=== PATIENT | male | born 1960 | race Caucasian/White ===

== ENCOUNTER 2018-09-22 09:46 | Inpatient (IN) | payer OTHER, SELFPAY ==
[2018-09-22] VITALS (16 sets, daily range): BP systolic 110–154; BP diastolic 81–103; PULSE 87–140; RESP 12–21; TEMP 36.5–37.1; O2SAT 97–100; BMI 30.8; BMI 30.4
--- NOTE | 2018-09-22 10:14 | EKG12_ITS ---
Test Reason : TACHYCARDIA Blood Pressure : / mmHG Vent. Rate : 132 BPM Atrial Rate : 147 BPM P-R Int : 000 ms QRS Dur : 090 ms QT Int : 324 ms P-R-T Axes : 000 016 072 degrees QTc Int : 480 ms Atrial fibrillation with rapid ventricular response with premature ventricular or aberrantly conducte d complexes Nonspecific T wave abnormality Abnormal ECG Confirmed by MATTHEW MCKINNON, ARACELI ([id number]), image editor AMAYA NAJERA ([id number]) on 09/24/2018 1:38:09 PM Referred By: IMELDA Confirmed By:ARACELI CASTRO MD
--- NOTE | 2018-09-22 10:18 | ED.VISSUMM ---
- ER Visit Summary Date of Service: 09/22/18 Chief Complaint: An irregular heartbeat History of Present Illness: The patient is a 58 M history of hypertension, high cholesterol PE and hypothyroidism. His had a cardiac history. Has never had a cardiac catheterization. Recently was treated for URI with Levaquin. On follow-up visit noticing irregular heartbeat [facility] and sent him over for further evaluation. He denies any chest pain. Physical Examination: Middle-aged male. Initial blood pressure 134 103. Heart rate 140. A. fib RVR on the monitor. He is in no distress. HEENT exam unremarkable. Neck nontender no JVD. Lungs clear to auscultation bilaterally. Heart irregularly irregular heart rate about 140. Consistent with A. fib RVR. No appreciable murmur. Abdomen soft and nontender. He is moving all 4 extremities. They are neurovascularly intact. Calves are nontender without edema or cords. Neurologically he is awake and alert with no focal motor deficits. Test Results: Chest x-ray no acute abnormality. Borderline cardiomegaly read by myself. EKG is A. fib RVR with rate of 132. No acute signs of an [place]. CBC normal hemoglobin 15. Chemistries normal except for creatinine 1.35. INR 1.2. TSH 0.23 and troponin 0 0.024. Emergency Department Course and Treatment: Patient will undergo cardiac evaluation. He will be treated with IV Cardizem for his A. fib RVR. He will need to be admitted. On repeat exam patient remains in A. fib with heart rates between 100 126. He will be started on a Cardizem drip. Treatment Plan: Hospitalist on page for admission to PCU Disposition: Admission Impression: New onset atrial fibrillation with RVR History of hypertension History of hypothyroidism This note was generated with Eventable dictation software. It may contain incorrect words, spelling, and punctuation that were not noted in review of the chart prior to signing
--- NOTE | 2018-09-22 10:21 | ED.DCSUM_ITS ---
- ER Visit Summary Date of Service: 09/22/18 Chief Complaint: An irregular heartbeat History of Present Illness: The patient is a 58 M history of hypertension, high cholesterol PE and hypothyroidism. His had a cardiac history. Has never had a cardiac catheterization. Recently was treated for URI with Levaquin. On follow-up visit noticing irregular heartbeat [facility] and sent him over for further evaluation. He denies any chest pain. Physical Examination: Middle-aged male. Initial blood pressure 134 103. Heart rate 140. A. fib RVR on the monitor. He is in no distress. HEENT exam unremarkable. Neck nontender no JVD. Lungs clear to auscultation bilaterally. Heart irregularly irregular heart rate about 140. Consistent with A. fib RVR. No appreciable murmur. Abdomen soft and nontender. He is moving all 4 extremities. They are neurovascularly intact. Calves are nontender without edema or cords. Neurologically he is awake and alert with no focal motor deficits. Test Results: Chest x-ray no acute abnormality. Borderline cardiomegaly read by myself. EKG is A. fib RVR with rate of 132. No acute signs of an [place]. CBC normal hemoglobin 15. Chemistries normal except for creatinine 1.35. INR 1.2. TSH 0.23 and troponin 0 0.024. Emergency Department Course and Treatment: Patient will undergo cardiac evaluation. He will be treated with IV Cardizem for his A. fib RVR. He will need to be admitted. On repeat exam patient remains in A. fib with heart rates between 100 126. He will be started on a Cardizem drip. Treatment Plan: Hospitalist on page for admission to PCU Disposition: Admission Impression: New onset atrial fibrillation with RVR History of hypertension History of hypothyroidism This note was generated with Mode[employer] dictation software. It may contain incorrect words, spelling, and punctuation that were not noted in review of the chart prior to signing
[2018-09-22 10:28] LABS: Absolute Lymphocyte Count 2.07 X10^3/ul (0.83-4.51); Absolute Neutrophil Count 4.9 X10^3/uL (2.0-7.7); Basophil# 0.04 X10^3/uL; Basophil% 0.5 % (0-1); Eosinophil# 0.41 X10^3/uL; Eosinophils% 4.9 % (0-5); Hematocrit 46.4 % (40-54); Hemoglobin 15.5 g/dl (13.0-16.5); Lymphocyte # 2.07 X10^3/ul (4.0); Lymphocyte % 24.7 % (19-41); Mean Corp Hgb Conc 33.4 g/gl (32-36); Mean Corpuscular Hgb 30.6 pg (27.0-32.0); Mean Corpuscular Volume 91.7 fL (80-94); Mean Platelet Vol. 10.2 fl (6.2-12.0); Monocyte# 0.94 X10^3/uL; Monocyte% 11.2 % (0-10); Neutrophil % 58.6 % (47-70); POSITIVE COUNT NO; POSITIVE DIFFERENTIAL NO; POSITIVE MORPHOLOGY NO; Platelet Count 205 K/mm3 (150-450); RBC Distribution Width CV 14.1 % (11.6-14.6); RBC Distribution Width SD 47.1 fl (35.1-43.9); Red Blood Count 5.06 M/mm3 (4.6-6.2); White Blood Count 8.4 K/mm3 (4.4-11.0)
[2018-09-22] MEDS: dilTIAZem 25 MG/5 ML Vial IV BOLUS (10:29)
[2018-09-22] MEDS: Aspirin 81 MG TAB.CHEW 324 MG PO (10:29)
[2018-09-22 10:31] LABS: International Normalized Ratio 1.2; Prothrombin Time (Protime)PT. 14.8 SECONDS (11.7-14.9)
--- NOTE | 2018-09-22 10:43 | RAD_ITS ---
STUDY: X-RAY CHEST REASON FOR EXAM: Male, 58 years old. Chest pain. Arrhythmia. TECHNIQUE: Single AP portable view of the chest. COMPARISON: None. FINDINGS: EKG electrodes are seen. Mild increased markings in the mid and lower lungs. This may represent mild CHF. Follow-up is recommended. There is no demonstrated pleural abnormality. There is mild cardiac enlargement. Normal mediastinum and sina. Normal visualized pulmonary arteries. Normal visualized aortic arch and descending thoracic aorta. There are diffuse degenerative changes of the visualized thoracic spine. Normal visualized ribs, clavicles, and shoulders. There is no demonstrated abnormality of the visualized soft tissue structures of the upper abdomen. RAD/Chest 1 View (Portable) IMPRESSION: Myocardial megaly. Findings suggestive of a mild degree of CHF. Electronically Signed: Ha Ortega, at 11:12 EDT , Service support ,
[2018-09-22 10:45] LABS: Anion Gap 4 (5-15); BUN 14 mg/dL (7-18); BUN/Creat Ratio 10.4 RATIO (10-20); Calcium,Total 8.6 mg/dL (8.5-10.1); Chloride 107 mmol/L (98-107); Creatinine, Serum 1.35 mg/dL (0.70-1.30); EST Glomerular Filtration Rate 57 mL/min (>60); Est Glom Filt Rate - Afr Amer 69 mL/min (>60); Estimated Creatinine Clearance 67.65 ml/min; Glucose 104 mg/dL (74-106); Potassium 4.4 mmol/L (3.5-5.1); Sodium Level 137 mmol/L (136-145); Thyroid Stim Hormone (TSH) 0.23 uIU/mL (0.358-3.74)
[2018-09-22 12:00] LABS: T4 Total, Thyroxin 11.5 ug/dL (4.5-12.1)
--- NOTE | 2018-09-22 14:06 | ECHOCS_ITS ---
Reason For Study: Afib/Flutter Procedure This was a 2D Doppler, Color Flow transthoracic echocardiogram. Contrast injection was performed. Exam performed portable in patient room. Left Ventricle Mildly dilated left ventricle. Mild concentric left ventricular hypertrophy. Thrombus measuring 1.4 by 1.4 cm in apex. The estimated ejection fraction is 20 %. Severe global left ventricular systolic dysfunction. There is severe global hypokinesis of the left ventricle. Right Ventricle Normal right ventricle. Normal systolic function. Atria The left atrium is severely enlarged. The right atrium is mildly enlarged. Mitral Valve Normal mitral valve. Mild (1+) eccentric mitral valve insufficiency. Tricuspid Valve Normal tricuspid valve. Aortic Valve The aortic valve is not well visualized. Pulmonic Valve Normal pulmonic valve. Great Vessels Normal aortic root. The pulmonary artery is normal size. Normal inferior vena cava. Pericardium/Pleural No pericardial effusion. Medication Diluted definity 4ml given slow IV push to enhance endocardial definition. MMode/2D Measurements & Calculations LVIDd: 5.8 cm IVSd: 1.2 cm Ao root diam: 3.8 cm LVIDs: 4.7 cm LVPWd: 1.3 cm LA dimension: 5.1 cm FS: 19.4 % LAV(MOD-bp): 116.9 ml LA A4 area: 34.5 cm2 RA A4 area: 26.9 cm2 LAV(MOD-bp) Indexed: 50.1 ml/m2 LAV(MOD-sp2): 99.5 ml LAV(MOD-sp4): 121.2 ml Doppler Measurements & Calculations MV E max sloan: 80.9 cm/sec Ao V2 max: 121.8 cm/sec LV V1 max: 95.6 cm/sec Ao max P.0 mmHg LV V1 max P.7 mmHg MR max sloan: 369.6 cm/sec PA V2 max: 66.4 cm/sec MR max P.6 mmHg MR mean sloan: 303.3 cm/sec MR mean P.7 mmHg MR VTI: 114.9 cm Interpretation Summary Mildly dilated left ventricle. Mild concentric left ventricular hypertrophy. The estimated ejection fraction is 20 %. Severe global left ventricular systolic dysfunction. Thrombus measuring 1.4 by 1.4 cm in apex Ordering Physician: Aaron Quintanilla Performed By: Jhoan Harris RCS
[2018-09-22] MEDS: Rivaroxaban 20 MG Tablet PO (15:21)
--- NOTE | 2018-09-22 16:57 | PCM.HP.STD ---
Problem List (1) Hypothyroidism Status: Chronic (2) A-fib Status: Acute (3) Left ventricular thrombus Status: Acute (4) History of venous thromboembolism Status: Chronic (5) HTN (hypertension) Status: Chronic (6) HLD (hyperlipidemia) Status: Chronic History of Present Illness Date of Admission: 09/22/18 Chief Complaint: Shortness of breath The patient is a 58 year old M with PMH as below who presents after going to his PCPs office for a follow-up of his pneumonia and no resolution of the of his upper respiratory infection/? recurrent pneumonia. In his PCPs office he was found to be tachycardic and they performed an EKG which showed he was in A. fib. They recommended that he present to the ER. In the ER he was found to be in A. fib with a normal chest x-ray that showed mild cardiomegaly as well as bilateral small pleural effusions. He was admitted for further evaluation of his A. fib. In the ER troponin was 0.024, and he was started on Cardizem. He states that he first started feeling short of breath with an upper respiratory infection about 6 months ago and it has not gotten any better. He has undergone multiple treatments with antibiotics as well as nasal sprays for relief, which did not work. He states that he has shortness of breath when he lays down for sleep and because he has difficulty sleeping he has been feeling fatigued. He denies any chest pain, lightheadedness, dizziness, or palpitations. And he does not recall any recent episodes of chest pain or shortness of breath 6 months ago. Past Medical History Past Medical History (Chronic Problems): Chronic Problems Hypothyroidism (Chronic) History of venous thromboembolism (Chronic) HTN (hypertension) (Chronic) HLD (hyperlipidemia) (Chronic) Allergies Penicillins Allergy (Verified 09/22/18 09:50) Unknown Home Medications: Ambulatory Orders Medication Instructions Recorded Aspirin 81 mg PO DAILY 09/22/18 Levothyroxine [Synthroid] 150 mcg PO DAILY 09/22/18 Lisinopril [Prinivil] 10 mg PO DAILY 09/22/18 Simvastatin [Zocor] 40 mg PO QHS 09/22/18 Surgical History: no surgical history Smoking Status: Former smoker Tobacco Use: Cigarettes Alcohol: None, Occasional Drugs: None - *Family History Paternal History Items: Heart Disease Maternal History Items: - - Tuberculosis Review of Systems Constitutional: Denies: Chills, Fever, Weight Change HEENT: Denies: Head Aches, Sinus Congestion, Sinus Drainage Cardiovascular: Reports: Orthopnea. Denies: Chest Pain, Palpitations Respiratory: Reports: Shortness of Breath. Denies: Cough, Shortness of breath at rest, Sputum production Gastrointestinal: Denies: Abdominal Pain, Nausea, Vomiting Genitourinary: Denies: Dysuria Musculoskeletal: Denies: Joint Pain, Joint Tenderness Skin: Denies: Rash, Wounds Neurological: Denies: Numbness, Tingling, Focal weakness Psychiatric: Denies: Anxiety, Depression Hematologic/ Lymphatic: Denies: Easy Bruising, Easy Bleeding VTE Information - Inpt Only VTE Present on Admission: No Patient Problems: Active and Suspected Problems A-fib (Acute) Left ventricular thrombus (Acute) - Physical Exam General: Alert, Oriented x3, Cooperative, No apparent distress HEENT: Atraumatic, PERRLA, EOMI, Normocephalic Oral: Moist Mucosa Neck: Supple, No JVD Lungs: Clear to auscultation, Normal air movement, No rhonchi, No wheeze, No rales, Diminished Cardiovascular: No murmurs, Tachycardic, - - Irregular rhythm Abdomen: Soft, Non Tender, Non-Distended, No Hepato-splenomegaly Extremities: No edema, Capillary Refill Less than 3 Seconds Skin: No rashes, No breakdown Neurological: Neuro grossly intact, Sensory exam intact to light touch and pain Psych/Mental Status: Normal Affect, Appropriate Vital Signs Temp Pulse Resp BP Pulse Ox 98.5 F 110 H 18 123/94 H 98 09/22/18 14:00 09/22/18 16:00 09/22/18 16:00 09/22/18 16:00 09/22/18 16:00 Oxygen Flow Rate (L/min) 2 Oxygen Delivery Method Nasal Cannula Weight: 236 lb 15.951 oz Body Mass Index (BMI) 30.4 Laboratory Tests Past 24 Hrs 09/22/18 09/22/18 09/22/18 09:53 09:53 09:53 WBC 8.4 RBC 5.06 Hgb 15.5 Hct 46.4 MCV 91.7 MCH 30.6 MCHC 33.4 RDW 14.1 RDW Differential 47.1 H Plt Count 205 MPV 10.2 Immature Gran % (Auto) 0.100 Neut % (Auto) 58.6 Lymph % (Auto) 24.7 Pierce % (Auto) 11.2 H Eos % (Auto) 4.9 Baso % (Auto) 0.5 Absolute Neuts (auto) 4.9 Absolute Lymphs (auto) 2.07 Total Counted Not Reportable PT 14.8 INR 1.2 Sodium 137 Potassium 4.4 Chloride 107 Carbon Dioxide 26.0 Anion Gap 4 L BUN 14 Creatinine 1.35 H Estim Creat Clear Calc 67.65 Est GFR (MDRD) Af Amer 69 Est GFR (MDRD) Non-Af 57 L BUN/Creatinine Ratio 10.4 Glucose 104 Calcium 8.6 Troponin I 0.024 TSH 0.23 L Thyroxine (T4) Total T3 09/22/18 09/22/18 09:53 12:00 WBC RBC Hgb Hct MCV MCH MCHC RDW RDW Differential Plt Count MPV Immature Gran % (Auto) Neut % (Auto) Lymph % (Auto) Pierce % (Auto) Eos % (Auto) Baso % (Auto) Absolute Neuts (auto) Absolute Lymphs (auto) Total Counted PT INR Sodium Potassium Chloride Carbon Dioxide Anion Gap BUN Creatinine Estim Creat Clear Calc Est GFR (MDRD) Af Amer Est GFR (MDRD) Non-Af BUN/Creatinine Ratio Glucose Calcium Troponin I TSH Thyroxine (T4) 11.5 Total T3 0.90 Assessment/Plan All Active Problems A-fib (Acute) Left ventricular thrombus (Acute) 1. New onset A. fib/left ventricular thrombus/acute systolic heart failure likely secondary to a previous [place]/HTN/HLD -He denies any cardiac history, denies any heart attacks, denies any history of cardiac caths -Echo today shows a large left ventricular thrombus with an EF of 20% -We will discontinue the Cardizem started in the ER and transition him to Coreg -We will continue him on Zocor -We will continue with Xarelto, and consult cardiology for possible ischemic work-up with a cardiac cath during this hospitalization -Lasix for diuresis -We will continue with his lisinopril for now and monitor his kidney function as his creatinine is 1.35 today 2. Hypothyroidism -TSH on admission was 0.23 -A follow-up T3-T4 was obtained which were both in the normal ranges -Continue with his current dose of Synthroid DVT: Xarelto Code Visit Inpatient E&M: 26266 Init Hosp L3
[2018-09-22] MEDS: Carvedilol 6.25 MG Tablet PO (17:34)
[2018-09-22] MEDS: 0.9% NaCl Peripheral Flush Adult/Peds IV (17:34)
[2018-09-22] MEDS: Furosemide 40 MG/4 ML Vial IV (17:34)
[2018-09-22] MEDS: Atorvastatin Calcium 20 MG Tablet PO (21:00)
[2018-09-23] VITALS (13 sets, daily range): BP systolic 105–117; BP diastolic 68–94; PULSE 83–128; RESP 16–18; TEMP 36.4–36.9; O2SAT 94–96
[2018-09-23] MEDS: Levothyroxine 150 MCG Tablet PO (05:01)
--- NOTE | 2018-09-23 05:55 | EKG12_ITS ---
Test Reason : AM EKG Blood Pressure : / mmHG Vent. Rate : 102 BPM Atrial Rate : 122 BPM P-R Int : 000 ms QRS Dur : 092 ms QT Int : 388 ms P-R-T Axes : 000 034 142 degrees QTc Int : 505 ms Atrial fibrillation with rapid ventricular response with premature ventricular or aberrantly conducte d complexes T wave abnormality, consider anterolateral ischemia Abnormal ECG Confirmed by MATTHEW MCKINNON, ARACELI ([id number]), food expeditor AMAYA NAJERA ([id number]) on 09/24/2018 1:52:23 PM Referred By: DR BENJAMIN Confirmed By:ARACELI CASTRO MD
[2018-09-23] MEDS: Carvedilol 6.25 MG Tablet PO ×2 (06:33→20:50)
[2018-09-23 08:02] LABS: Anion Gap 6 (5-15); BUN 16 mg/dL (7-18); BUN/Creat Ratio 13.7 RATIO (10-20); Calcium,Total 8.5 mg/dL (8.5-10.1); Chloride 109 mmol/L (98-107); Creatinine, Serum 1.17 mg/dL (0.70-1.30); EST Glomerular Filtration Rate 68 mL/min (>60); Est Glom Filt Rate - Afr Amer 82 mL/min (>60); Estimated Creatinine Clearance 78.06 ml/min; Glucose 104 mg/dL (74-106); Potassium 4.1 mmol/L (3.5-5.1); Sodium Level 139 mmol/L (136-145)
--- NOTE | 2018-09-23 08:30 | NURSING ---
Pt states no weakness or fatigue in all 4 extremities
[2018-09-23] MEDS: Lisinopril 10 MG Tablet PO (08:40)
--- NOTE | 2018-09-23 10:34 | PCM.PN.HOSP ---
Patient Problems: Active and Suspected Problems A-fib (Acute) Left ventricular thrombus (Acute) Subjective: Doing well today feeling much better with after receiving the Lasix, still denies any chest pain Vitals/I&O's: Vital Signs Temp Pulse Resp BP Pulse Ox 98.1 F 83 16 111/74 96 09/23/18 08:15 09/23/18 08:27 09/23/18 08:15 09/23/18 08:15 09/23/18 08:27 Oxygen Flow Rate (L/min) 2 Oxygen Delivery Method Room Air Weight: 231 lb 11.293 oz Body Mass Index (BMI) 30.4 Intake and Output for Last 24 Hours 09/21/18 09/22/18 09/23/18 23:59 23:59 23:59 Intake Total 788 / 788 120 / 120 Output Total 2950 / 2950 1000 / 1000 Balance -2162 / -2162 -880 / -880 General: Alert, Oriented x3, Cooperative, No apparent distress HEENT: Atraumatic, PERRLA, EOMI, Normocephalic Oral: Moist Mucosa Neck: Supple, No JVD Lungs: Clear to auscultation, Normal air movement, No rhonchi, No wheeze, No rales, Diminished Cardiovascular: No murmurs, Tachycardic, - - Irregular rhythm Abdomen: Soft, Non Tender, Non-Distended, No Hepato-splenomegaly Extremities: No edema, Capillary Refill Less than 3 Seconds Skin: No rashes, No breakdown Neurological: Neuro grossly intact, Sensory exam intact to light touch and pain Psych/Mental Status: Normal Affect, Appropriate Laboratory Results 09/22/18 09:53: Sodium 137, Potassium 4.4, Chloride 107, Carbon Dioxide 26.0, Anion Gap 4 L, BUN 14, Creatinine 1.35 H, Estim Creat Clear Calc 67.65, Est GFR (MDRD) Af Amer 69, Est GFR (MDRD) Non-Af 57 L, BUN/Creatinine Ratio 10.4, Glucose 104, Calcium 8.6, Troponin I 0.024, TSH 0.23 L 09/22/18 09:53: Thyroxine (T4) 11.5 09/22/18 12:00: Total T3 0.90 09/23/18 07:20: Sodium 139, Potassium 4.1, Chloride 109 H, Carbon Dioxide 24.0, Anion Gap 6, BUN 16, Creatinine 1.17, Estim Creat Clear Calc 78.06, Est GFR (MDRD) Af Amer 82, Est GFR (MDRD) Non-Af 68, BUN/Creatinine Ratio 13.7, Glucose 104, Calcium 8.5 Current Medications Atorvastatin Calcium (Lipitor) 20 mg PO QHS [facility] Last Admin: 09/22/18 21:00 Dose: 20 mg Carvedilol (Coreg) 6.25 mg PO BID [facility] Last Admin: 09/23/18 06:33 Dose: 6.25 mg Sodium Chloride () 1,000 mls @ 15 mls/hr IV .Q48H [facility] Levothyroxine Sodium (Synthroid) 150 mcg PO DAILY@0600 [facility] Last Admin: 09/23/18 05:01 Dose: 150 mcg Lisinopril (Zestril) 10 mg PO DAILY [facility] Last Admin: 09/23/18 08:40 Dose: 10 mg Sodium Chloride () 5 - 15 ml IV UD PRN PRN Reason: SALINE FLUSH Last Admin: 09/22/18 17:34 Dose: 10 ml Medical Necessity - Tobacco Use Smoking Status: Former smoker Tobacco Use: Cigarettes Assessment/Plan All Active Problems A-fib (Acute) Left ventricular thrombus (Acute) 1. New onset A. fib/left ventricular thrombus/acute systolic heart failure likely secondary to a previous [place]/HTN/HLD -He denies any cardiac history, denies any heart attacks, denies any history of cardiac caths -Echo shows a large left ventricular thrombus with an EF of 20% -Continue with Coreg twice daily -We will continue him on Zocor -We will hold Xarelto plan transition to therapeutic Lovenox for possible cath in the morning -Lasix for diuresis -We will continue with his lisinopril for now and monitor his kidney function, his creatinine did improve from 1.35 to 1.17 2. Hypothyroidism -TSH on admission was 0.23 -A follow-up T3-T4 was obtained which were both in the normal ranges -Continue with his current dose of Synthroid DVT: Therapeutic Lovenox Code Visit Inpatient E&M: 38442 Subs Hosp L2
--- NOTE | 2018-09-23 10:40 | PN_ITS ---
Patient Problems: Active and Suspected Problems A-fib (Acute) Left ventricular thrombus (Acute) Subjective: Doing well today feeling much better with after receiving the Lasix, still denies any chest pain Vitals/I&O's: Vital Signs Temp Pulse Resp BP Pulse Ox 98.1 F 83 16 111/74 96 09/23/18 08:15 09/23/18 08:27 09/23/18 08:15 09/23/18 08:15 09/23/18 08:27 Oxygen Flow Rate (L/min) 2 Oxygen Delivery Method Room Air Weight: 231 lb 11.293 oz Body Mass Index (BMI) 30.4 Intake and Output for Last 24 Hours 09/21/18 09/22/18 09/23/18 23:59 23:59 23:59 Intake Total 788 / 788 120 / 120 Output Total 2950 / 2950 1000 / 1000 Balance -2162 / -2162 -880 / -880 General: Alert, Oriented x3, Cooperative, No apparent distress HEENT: Atraumatic, PERRLA, EOMI, Normocephalic Oral: Moist Mucosa Neck: Supple, No JVD Lungs: Clear to auscultation, Normal air movement, No rhonchi, No wheeze, No rales, Diminished Cardiovascular: No murmurs, Tachycardic, - - Irregular rhythm Abdomen: Soft, Non Tender, Non-Distended, No Hepato-splenomegaly Extremities: No edema, Capillary Refill Less than 3 Seconds Skin: No rashes, No breakdown Neurological: Neuro grossly intact, Sensory exam intact to light touch and pain Psych/Mental Status: Normal Affect, Appropriate Laboratory Results 09/22/18 09:53: Sodium 137, Potassium 4.4, Chloride 107, Carbon Dioxide 26.0, Anion Gap 4 L, BUN 14, Creatinine 1.35 H, Estim Creat Clear Calc 67.65, Est GFR (MDRD) Af Amer 69, Est GFR (MDRD) Non-Af 57 L, BUN/Creatinine Ratio 10.4, Glucose 104, Calcium 8.6, Troponin I 0.024, TSH 0.23 L 09/22/18 09:53: Thyroxine (T4) 11.5 09/22/18 12:00: Total T3 0.90 09/23/18 07:20: Sodium 139, Potassium 4.1, Chloride 109 H, Carbon Dioxide 24.0, Anion Gap 6, BUN 16, Creatinine 1.17, Estim Creat Clear Calc 78.06, Est GFR (MDRD) Af Amer 82, Est GFR (MDRD) Non-Af 68, BUN/Creatinine Ratio 13.7, Glucose 104, Calcium 8.5 Current Medications Atorvastatin Calcium (Lipitor) 20 mg PO QHS [facility] Last Admin: 09/22/18 21:00 Dose: 20 mg Carvedilol (Coreg) 6.25 mg PO BID [facility] Last Admin: 09/23/18 06:33 Dose: 6.25 mg Sodium Chloride () 1,000 mls @ 15 mls/hr IV .Q48H [facility] Levothyroxine Sodium (Synthroid) 150 mcg PO DAILY@0600 [facility] Last Admin: 09/23/18 05:01 Dose: 150 mcg Lisinopril (Zestril) 10 mg PO DAILY [facility] Last Admin: 09/23/18 08:40 Dose: 10 mg Sodium Chloride () 5 - 15 ml IV UD PRN PRN Reason: SALINE FLUSH Last Admin: 09/22/18 17:34 Dose: 10 ml Medical Necessity - Tobacco Use Smoking Status: Former smoker Tobacco Use: Cigarettes Assessment/Plan All Active Problems A-fib (Acute) Left ventricular thrombus (Acute) 1. New onset A. fib/left ventricular thrombus/acute systolic heart failure likely secondary to a previous [place]/HTN/HLD -He denies any cardiac history, denies any heart attacks, denies any history of cardiac caths -Echo shows a large left ventricular thrombus with an EF of 20% -Continue with Coreg twice daily -We will continue him on Zocor -We will hold Xarelto plan transition to therapeutic Lovenox for possible cath in the morning -Lasix for diuresis -We will continue with his lisinopril for now and monitor his kidney function, his creatinine did improve from 1.35 to 1.17 2. Hypothyroidism -TSH on admission was 0.23 -A follow-up T3-T4 was obtained which were both in the normal ranges -Continue with his current dose of Synthroid DVT: Therapeutic Lovenox Code Visit Inpatient E&M: 20347 Subs Hosp L2
[2018-09-23] MEDS: 0.9% NaCl Peripheral Flush Adult/Peds IV (10:59)
[2018-09-23] MEDS: Furosemide 40 MG/4 ML Vial IV (10:59)
--- NOTE | 2018-09-23 11:28 | CASEMGMT ---
ODILIA MCKENZIE assessment: Face to Face with patient for initial transition planning/care coordination assessment. ODILIA MCKENZIE introduced self and role at [facility], pt voices understanding and consents to assessment at this time. Pt is sitting up in bed in no distress at this time. Pt is A/Ox4 at this time and answers all questions appropriately at this time. Care providers, pharmacy, and demographics verified. PCP: Sergei Specialists: Pt states currently has no specialists. [facility]erred [facility]acy: [facility] Insurance: MMO Prescription Benefit: MMO Living Will/HPOA: Pt states does not have LW/HPOA but would like to complete at this time. Sarah PICKERING aware, voices understanding. LNOK: Rose Marie Gabmoa, Living Arrangements: Pt states lives with in 1 story home and states no concerns at home at this time. Pt states is independent with ADL's. Transportation: Pt states drives self and states no transportation concerns at this time. DME/HHC: Pt states has no current DME or need for any at this time. Pt states no hx of HHC or SNF in the past. Pt states no concerns with going home at time of discharge. Pt states works [employer]. Pt states does not smoke but does drink ETOH every other day and states drinks about a 12 pk/week. Pt states no further questions/concerns/needs at this time. CM to follow for any further discharge planning/needs. Advised pt to ask for CM if any further questions/concerns/needs arise, voices understanding. Pt Goal: Home Plan[place] ODILIA MCKENZIE
--- NOTE | 2018-09-23 12:01 | CON.PCM_ITS ---
Problem List (1) A-fib Status: Acute (2) CHF (congestive heart failure) Status: Acute Qualifiers: Heart failure type: systolic Heart failure chronicity: acute Qualified Code(s): I50.21 - Acute systolic (congestive) heart failure (3) Cardiomyopathy Status: Acute Qualifiers: Cardiomyopathy type: unspecified Qualified Code(s): I42.9 - Cardiomyopathy, unspecified (4) Left ventricular thrombus Status: Acute (5) HLD (hyperlipidemia) Status: Chronic (6) HTN (hypertension) Status: Chronic (7) History of venous thromboembolism Status: Chronic (8) History of pulmonary embolism Status: Chronic Reason for Consult Date of Consultation: 09/23/18 History of Present Illness: The patient is a 58 year old white male with a past medical history that has included hyperlipidemia and hypertension who now was referred for findings of atrial fibrillation, acute systolic CHF, and abnormal transthoracic echocardiogram suggesting an underlying cardiomyopathy with diminished LV systolic function/LVEF, a left ventricular apical thrombus, superimposed upon a history of remote DVT/PE. He states that for several weeks now, and his believes for several months now, he has not felt well overall. He has been complaining of upper respiratory tract related symptoms with rhinorrhea, etc. He states he has been evaluated as an outpatient and treated with multiple rounds of antibiotic therapy with no significant improvement. He was being reevaluated yesterday by his PCP and found to be in atrial fibrillation. He was referred to the hospital for further evaluation and care. A transthoracic echocardiogram was performed. He was noted to have left ventricular systolic dysfunction with a reported LVEF of 20% and findings compatible with a left ventricular apical thrombus. He denies any ongoing chest discomfort. He does admit he has been somewhat more short of breath and dyspneic and more easily tired and fatigued for quite some time now. He has had symptoms compatible with orthopnea. He has had no significant lower extremity peripheral pitting edema. There has been no near syncope or syncope. He has not sensed any change in his underlying cardiac rate or rhythm. Since being in the hospital he has been treated medically. He has been placed on rate control therapy. He has been placed on diuretic therapy. He was given oral anticoagulant therapy with Xarelto x1 yesterday. He is now referred for further cardiovascular evaluation. [] Past Medical History Allergies/Adverse Reactions: Allergies Penicillins Allergy (Verified 09/22/18 09:50) Unknown Home Medications: Ambulatory Orders Medication Instructions Recorded Aspirin 81 mg PO DAILY 09/22/18 Levothyroxine [Synthroid] 150 mcg PO DAILY 09/22/18 Lisinopril [Prinivil] 10 mg PO DAILY 09/22/18 Simvastatin [Zocor] 40 mg PO QHS 09/22/18 Past Medical History (Chronic Problems): Chronic Problems Hypothyroidism (Chronic) History of venous thromboembolism (Chronic) HTN (hypertension) (Chronic) HLD (hyperlipidemia) (Chronic) History of pulmonary embolism (Chronic) Surgical History: no surgical history - *Family History Paternal History Items: Heart Disease Maternal History Items: - - Tuberculosis Lives: Spouse/ Significant Other Smoking Status: Former smoker Tobacco Use: Cigarettes Alcohol: None, Occasional Drugs: None Review of Systems - Review of Systems General: Reports: Fatigue. Denies: Night Sweats Cardiovascular: Reports: Shortness of Breath, Shortness of Breath with Exertion, Orthopnea. Denies: Chest Discomfort, PND, Peripheral Edema, Palpitations, Lightheadedness, Dizziness, Near Syncope, Syncope Respiratory: Reports: Cough, Shortness of Breath. Denies: Sputum Production, Hemoptysis Gastrointestinal: Denies: Hematemesis, Hematochezia, Melena Genitourinary: Denies: Dysuria, Hematuria Skin: Denies: Rash Subjectve: This is a 58-year-old white male who appears to be resting comfortably at the moment in no acute distress. Objective: Vital Signs Temp Pulse Resp BP Pulse Ox 98.1 F 83 16 111/74 96 09/23/18 08:15 09/23/18 08:27 09/23/18 08:15 09/23/18 08:15 09/23/18 08:27 Oxygen Flow Rate (L/min) 2 Oxygen Delivery Method Room Air Weight: 231 lb 11.293 oz Body Mass Index (BMI) 30.4 Intake and Output for Last 24 Hours 09/21/18 09/22/18 09/23/18 23:59 23:59 23:59 Intake Total 788 / 788 120 / 120 Output Total 2950 / 2950 1000 / 1000 Balance -2162 / -2162 -880 / -880 General: Awake, Alert, Oriented x 3, Cooperative, No Acute Distress HEENT: Atraumatic, Normocephalic, PERRL, EOMI, Sclera Non Icteric Oral: Moist Mucosa Neck: Supple, Good ROM, No JVD Lungs: Diminished Jono Bases Cardiovascular: Irregular Rhythm, Normal S1, Normal S2 Vascular: No Carotid Bruits Abdomen: Bowel Sounds Present, Soft, Non Tender Extremities: No Cyanosis, No Clubbing, Trace LLE Edema Neurological: No Focal Motor or Sensory Deficit Psych/Mental Status: Appropriate 09/23/18 07:20: Sodium 139, Potassium 4.1, Chloride 109 H, Carbon Dioxide 24.0, Anion Gap 6, BUN 16, Creatinine 1.17, Est GFR (MDRD) Af Amer 82, Est GFR (MDRD) Non-Af 68, BUN/Creatinine Ratio 13.7, Glucose 104, Calcium 8.5 Rhythm: Atrial fibrillation EKG: Atrial fibrillation; PVCs; poor R wave progression; T wave abnormality potentially compatible with myocardial ischemia in the anterolateral distribution ECHO: Interpretation Summary Mildly dilated left ventricle. Mild concentric left ventricular hypertrophy. The estimated ejection fraction is 20 %. Severe global left ventricular systolic dysfunction. Thrombus measuring 1.4 by 1.4 cm in apex CXR: Preliminary evaluation: Findings compatible with CHF: Please see official report Assessment/Plan 1. Atrial fibrillation The patient is in atrial fibrillation. Is unclear how long the patient has been in atrial fibrillation. The etiology is unclear at this time. It is also unclear whether this is contributing to her result of his underlying cardiomyopathy. At the present time the patient will continue rate control therapy. He will continue anticoagulant therapy as deemed appropriate in and around the time of other cardiovascular procedures. Eventually he will need to be considered for an attempt at regaining sinus rhythm. However, from a standpoint with respect with synchronized biphasic DC cardioversion, this may have to occur after he demonstrates resolution of his left ventricular apical thrombus. 2. CHF: Acute systolic The patient does have CHF. It appears to be acute systolic. It is unclear as to how long he has been in CHF. At the present time he will continue medical management. This will include agen ts such as beta blockers diuretics and afterload reducing agents. 3. Cardiomyopathy He does have findings compatible with an underlying cardiomyopathy. Etiology is unclear to whether or not this is related to CAD, a non-CAD cardiomyopathy such as his atrial fibrillation with rapid ventricular response, or nonrate limiting cardiomyopathy. At the present time he will continue medical management. He will also be considered for further evaluation with diagnostic cardiac catheterization to evaluate his coronary anatomy as to whether this is part of his underlying cardiomyopathy that would require not only medical therapy but revascularization therapy. 4. Left ventricular apical thrombus He does have a left ventricular apical thrombus. This appears secondary to his diminished LV systolic function. He will need to continue anticoagulant therapy. He will need future follow-up with tachycardia graphic studies to monitor this finding. 5. Hyperlipidemia He will continue lipid-lowering therapy. 6. Hypertension He will continue antihypertensive therapy. 7. 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 He was treated medically with warfarin/Coumadin. He has had no recurrent thrombi embolic events to the best of his knowledge. Plan: The above was discussed with the patient, spouse, and the [facility] staff. This note was generated using a voice recognition system and there may be incorrect words, spelling or punctuation that were not noted when reviewing the office note prior to saving.
--- NOTE | 2018-09-23 15:27 | CASEMGMT ---
SW completed Healthcare POA and Healthcare LW with patient. Copies were made and given to patient along with originals. A copy of each was placed in his chart. Isabela FANG MSW
[2018-09-23] MEDS: Enoxaparin 100 MG/ML Syringe 90 MG SC (18:53)
[2018-09-23] MEDS: Aspirin 325 MG Tablet PO (20:44)
[2018-09-23] MEDS: Clopidogrel Bisulfate 300 MG Tablet PO (20:44)
[2018-09-23] MEDS: Atorvastatin Calcium 20 MG Tablet PO (20:50)
[2018-09-24] VITALS (22 sets, daily range): BP systolic 89–143; BP diastolic 60–107; PULSE 69–120; RESP 12–21; TEMP 35.7–36.8; O2SAT 94–100; BMI 29.0
[2018-09-24 04:06] LABS: Absolute Lymphocyte Count 2.31 X10^3/ul (0.83-4.51); Absolute Neutrophil Count 4.3 X10^3/uL (2.0-7.7); Basophil# 0.05 X10^3/uL; Basophil% 0.6 % (0-1); Hematocrit 48.4 % (40-54); Hemoglobin 16.3 g/dl (13.0-16.5); Lymphocyte # 2.31 X10^3/ul (4.0); Lymphocyte % 29.1 % (19-41); Mean Corp Hgb Conc 33.7 g/gl (32-36); Mean Corpuscular Volume 89.1 fL (80-94); Mean Platelet Vol. 10.3 fl (6.2-12.0); Monocyte# 0.82 X10^3/uL; Monocyte% 10.3 % (0-10); Neutrophil # 4.34 X10^3/uL (2.7-7.7); Neutrophil % 54.9 % (47-70); Platelet Count 211 K/mm3 (150-450); RBC Distribution Width CV 13.9 % (11.6-14.6); RBC Distribution Width SD 45.1 fl (35.1-43.9); Red Blood Count 5.43 M/mm3 (4.6-6.2); White Blood Count 7.9 K/mm3 (4.4-11.0)
[2018-09-24 04:15] LABS: International Normalized Ratio 1.3; Prothrombin Time (Protime)PT. 15.7 SECONDS (11.7-14.9)
[2018-09-24 04:16] LABS: POSITIVE COUNT NO; POSITIVE DIFFERENTIAL NO; POSITIVE MORPHOLOGY NO; Partial Thromboplast Time 31.6 Seconds (24.1-36.2)
[2018-09-24 04:24] LABS: Anion Gap 8 (5-15); BUN 21 mg/dL (7-18); BUN/Creat Ratio 17.5 RATIO (10-20); Calcium,Total 8.5 mg/dL (8.5-10.1); Chloride 109 mmol/L (98-107); EST Glomerular Filtration Rate 66 mL/min (>60); Est Glom Filt Rate - Afr Amer 79 mL/min (>60); Estimated Creatinine Clearance 76.11 ml/min; Glucose 116 mg/dL (74-106); Sodium Level 141 mmol/L (136-145)
[2018-09-24] MEDS: 0.9% Normal Saline 1,000 ML 15 ML IV (05:35)
[2018-09-24] MEDS: Carvedilol 6.25 MG Tablet PO ×2 (05:36→14:06)
[2018-09-24] MEDS: Aspirin 81 MG TAB.CHEW PO (05:36)
[2018-09-24] MEDS: Clopidogrel Bisulfate 75 MG Tablet PO (05:36)
[2018-09-24] MEDS: Levothyroxine 150 MCG Tablet PO (05:36)
[2018-09-24] MEDS: Lisinopril 10 MG Tablet PO (05:36)
--- NOTE | 2018-09-24 05:55 | EKG12_ITS ---
Test Reason : AM EKG Blood Pressure : / mmHG Vent. Rate : 102 BPM Atrial Rate : 107 BPM P-R Int : 000 ms QRS Dur : 092 ms QT Int : 374 ms P-R-T Axes : 000 -03 136 degrees QTc Int : 487 ms Atrial fibrillation with rapid ventricular response Nonspecific T wave abnormality Abnormal ECG When compared with ECG of 23-SEP-2018 06:00, MANUAL COMPARISON REQUIRED, DATA IS UNCONFIRMED Confirmed by TORO CHEEMA ([id number]), managing editor DANYA GODFREY ([id number]) on 09/29/2018 4:45:38 PM Referred By: CASSIDY Confirmed By:AIDA CHEEMA
--- NOTE | 2018-09-24 07:32 | NURSING ---
Report called to Rafaela in photo lab specialist.
--- NOTE | 2018-09-24 08:44 | NURSING ---
Report given to Pricila DISEASE CASE MANAGER RN.
[2018-09-24] MEDS: 0.9% Normal Saline 1,000 ML 150 ML IV (09:45)
--- NOTE | 2018-09-24 09:55 | PCM.PN.CARD ---
Subjectve: The patient is now status post diagnostic cardiac catheterization and RCA PCI. He appears without any acute adverse events. Objective: Vital Signs Temp Pulse Resp BP Pulse Ox 97.9 F 115 H 16 115/79 100 09/24/18 05:35 09/24/18 05:35 09/24/18 05:35 09/24/18 05:35 09/24/18 05:35 Oxygen Flow Rate (L/min) 2 Oxygen Delivery Method Room Air Weight: 226 lb 10.163 oz Body Mass Index (BMI) 30.4 Intake and Output for Last 24 Hours 09/22/18 09/23/18 09/24/18 23:59 23:59 23:59 Intake Total 788 / 788 1080 / 1080 0 / 0 Output Total 2950 / 2950 3300 / 3300 250 / 250 Balance -2162 / -2162 -2220 / -2220 -250 / -250 General: Awake, Alert, Oriented x 3, Cooperative, No Acute Distress HEENT: Atraumatic, Normocephalic, PERRL, EOMI, Sclera Non Icteric Oral: Moist Mucosa Neck: Supple, Good ROM, No JVD Lungs: Clear to auscultation Cardiovascular: Irregular Rhythm, Normal S1, Normal S2 Vascular: Normal Femoral Pulses, Normal Radial Pulses Abdomen: Bowel Sounds Present, Soft, Non Tender Extremities: Trace RLE Edema, Trace LLE Edema Neurological: No Focal Motor or Sensory Deficit Psych/Mental Status: Appropriate 09/24/18 03:58: Sodium 141, Potassium 4.0, Chloride 109 H, Carbon Dioxide 24.0, Anion Gap 8, BUN 21 H, Creatinine 1.20, Est GFR (MDRD) Af Amer 79, Est GFR (MDRD) Non-Af 66, BUN/Creatinine Ratio 17.5, Glucose 116 H, Calcium 8.5 09/24/18 03:58: WBC 7.9, RBC 5.43, Hgb 16.3, Hct 48.4, MCV 89.1, MCH 30.0, MCHC 33.7, RDW 13.9, RDW Differential 45.1 H, Plt Count 211, MPV 10.3, Immature Gran % (Auto) 0.100, Neut % (Auto) 54.9, Lymph % (Auto) 29.1, [place] % (Auto) 10.3 H, Eos % (Auto) 5.0, Baso % (Auto) 0.6, Absolute Neuts (auto) 4.3, Total Counted Not Reportable 09/24/18 03:58: PT 15.7 H, INR 1.3, APTT 31.6 Rhythm: Atrial fibrillation Medical Necessity - Tobacco Use Smoking Status: Former smoker Tobacco Use: Cigarettes Assessment/Plan 1. Atrial fibrillation The patient is in atrial fibrillation. Is unclear how long the patient has been in atrial fibrillation. The etiology is unclear at this time. It is also unclear whether this is contributing to her result of his underlying cardiomyopathy. At the present time the patient will continue rate control therapy. He will be placed on antiarrhythmic therapy in the hopes this may assist with his underlying rate and eventual rhythm. He will continue anticoagulant therapy when he is able to do so status post his invasive procedure. 2. CHF: Acute systolic The patient does have CHF. It appears to be acute systolic. It is unclear as to how long he has been in CHF. At the present time he will continue medical management. This will include agents such as beta blockers diuretics and afterload reducing agents. 3. Cardiomyopathy He does have findings compatible with an underlying cardiomyopathy. It appears he has a cardiomyopathy that is out of proportion to his underlying CAD. At the present time he will continue medical management. 4. CAD He was found to have angiographically significant appearing CAD of the proximal RCA. He underwent RCA PCI. Hopefully this will help with respect to his underlying cardiovascular condition. He will need continued risk factor evaluation and care as deemed appropriate. 5. Left ventricular apical thrombus He does have a left ventricular apical thrombus. He will be placed back on anticoagulant therapy when he is able to do so status post his invasive procedures. 6. Hyperlipidemia He will continue lipid-lowering therapy. 7. Hypertension He will continue antihypertensive therapy. 8. 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 He was treated medically with warfarin/Coumadin. He has had no recurrent thrombi embolic events to the best of his knowledge. Plan: The above was discussed with the patient and his spouse. This note was generated using a voice recognition system and there may be incorrect words, spelling or punctuation that were not noted when reviewing the office note prior to saving.
[2018-09-24 09:56] LABS: ACT Activated Clotting Time 186 sec (74-137)
--- NOTE | 2018-09-24 10:10 | EKG12_ITS ---
Test Reason : POST PCI Blood Pressure : / mmHG Vent. Rate : 102 BPM Atrial Rate : 093 BPM P-R Int : 000 ms QRS Dur : 090 ms QT Int : 368 ms P-R-T Axes : 000 054 115 degrees QTc Int : 479 ms Atrial fibrillation with premature ventricular or aberrantly conducted complexes T wave abnormality, consider lateral ischemia or digitalis effect Abnormal ECG When compared with ECG of 24-SEP-2018 05:11, MANUAL COMPARISON REQUIRED, DATA IS UNCONFIRMED Confirmed by TORO CHEEMA ([id number]), newspaper editor managing DANYA GODFREY ([id number]) on 09/29/2018 4:48:41 PM Referred By: KERWIN Confirmed By:AIDA CHEEMA
--- NOTE | 2018-09-24 10:16 | CL.D_ITS ---
Patient Name: ARLETH YI Study Date: 09/24/2018 Performing: Alex Dukes MD Ht: 74 inches 188 cm : 1960 Wt: 227.4 lbs 103 kg Age: 58 Gender: male BSA: 2.29 PROCEDURE(S) PERFORMED [id number] W OR WO PTCA, SINGLE CORONARY ARTERY CLINICAL PROFILE AND INDICATIONS Indications: LV Dysfunction, Cardiomyopathy, Suspected CAD, Cardiac Arrythmia, Cardiomyopathy, LV Dysfunction Heart Failure: NYHA Class: 3, Newly Diagnosed: Yes, Heart Failure Type: Systolic, NYHA Class: 3, Newly Diagnosed: Yes, Heart Failure Type: Systolic Stress/Imaging Stress/Image Study Performed: No Stress/Image Study Performed: No Angina Classification Anginal Classification w/in 2 Weeks: CCS III CAD Presentations: Other: dyspnea on exertion; fatigue Other: CHF, afib, dyspnea on exertion, sev ere LV dysfunction, LV apical thrombus. Comorbidities/Risk Factors: Hypertension Dyslipidemia CONCLUSIONS [place] Multivessel CAD RECOMMENDATIONS Risk factor modification Medical therapy Referred for immediate PCI DESCRIPTION OF PROCEDURE The patient arrived to the procedure lab. The risks and benefits of the procedure as well as a full d escription of our services here and current unavailability of surgical backup were fully explained to the patient and/or their significant other prior to the catheterization. The Timeout was completed, verifying the correct patient and procedure. The patient's procedural site was prepped and draped in the usual fashion. Local anesthetic was given subcutaneously to right radial region with Lidocaine 2% . Local anesthetic was given subcutaneously to right groin region with Lidocaine 2%. Using a modified Seldinger technique, arterial access was obtained via the right radial artery, a 6Fr sheath was inse rted., arterial access was obtained via the right femoral artery, a 4Fr sheath was inserted Left Cor onary Artery selective angiography was performed in multiple views using a 5 Fr. 4.0 Vilas catheter. Right Coronary Artery selective angiography was then performed in multiple views using a 5 Fr. 4.0 Vilas catheter.Contrast was injected through the sheath and the Right Iliac and Femoral arter y were assessed for possible closure device.The arterial sheath was pulled and a Mynx closure device was deployed for hemostasis. The arterial sheath was pulled and a TR Band was applied for hemostasis 15 cc's of air applied CORONARY ANGIOGRAPHY DOMINANCE: Right Dominant LEFT HEART ASSESSMENT Left Ventricular Ejection Fraction: Not assessed LEFT MAIN: Angiographically normal LEFT ANTERIOR DESCENDING ARTERY: Mild luminal irregularities MID LAD: eccentric: 10 - 25 % Stenosis CIRCUMFLEX ARTERY: Mild luminal irregularities RIGHT CORONARY ARTERY: Mild luminal irregularities PROX RCA: long: diffuse: irregular: 85 % Stenosis COMPLICATIONS No Complications PROCEDURE MEDICATIONS Versed 1 mg IV Fentanyl 50 mcg IV Oxygen: 2 L/min via nasal cannula Heparin given IA 09/24/2018 07:49:21 Heparin 6000 unit(s) IV 09/24/2018 08:24:09 Nitro 200 mcg IC 09/24/2018 08:25:03 Nitro 200 mcg IC 09/24/2018 08:25:03 Verapamil 2.5mg, Ntg 100mcgs, 2000 units of Heparin given IA 09/24/2018 07:49:21 SUMMARY OF HEMODYNAMIC DATA Time AIR REST ECG 07:37:07 AO 93/57 (74) SA 07:51:36 AO 114/73 (86) 07:58:01 RM AIR REST 09:27:47 Signed By Alex Dukes MD On 09/24/2018 10:16:08 Alex Dukes MD
--- NOTE | 2018-09-24 13:02 | CASEMGMT ---
RN CM Assessment Presentation: Afib, cardizem gtt, L ventricular apical thrombus Intro role of CM and purpose of RN CM assessment. Demographics, PCP and Pharmacy verified. PCP: Dr. Mai [facility] Insurance: MMO Prescription Benefit: yes LNOK: , Rose Marie Gamboa Living Arrangements: Pt states lives independently in one story home. No assistance needed with ADL's. Transportation: drives DME: none. HHC: none Patient DC goals: Home DC PLAN: Home on dc. Modesta JORDAN RN ACM
--- NOTE | 2018-09-24 13:57 | CRPHASE1 ---
Patient Communication PHII Cardiac Rehab Discussed with Patient:: Yes Guide to Cardiac Rehab Given to Patient:: Yes Cardiac Rehab Facility Choice List Given to Patient:: Yes Choice Program [facility] CR PHII:: Communication Given to CR, Refer to [facility] Buffing And Polishing Wheel Repairer:: Alex Dukes PCP:: Sessions:: 36 sessions - 3 days/wk, 12 weeks Cardiac Rehabilitation Info Cardiac Rehabilitation Program Information: Cardiac Rehabilitation is important for patients like you who are recovering from a heart problem. Cardiac rehabilitation programs are recognized as integral to the continued care of the patient with coronary heart disease. The cardiac rehabilitation program is designed to optimize a patient's physical, psychological, and social functioning. Health landcare facilitator work in cardiac rehabilitation programs and assist you with getting the treatments you need to get stronger and healthier - like exercise, healthy eating habits, and medications. Cardiac rehabilitation has been show to help people with heart problems live longer and have better life enjoyment than people who do not go to cardiac rehabilitation. Please contact the Cardiac Rehabilitation Program at [facility] at in two weeks if you have not heard from them.
--- NOTE | 2018-09-24 13:59 | CRPHASE1 ---
Patient Communication PHII Cardiac Rehab Discussed with Patient:: Yes Guide to Cardiac Rehab Given to Patient:: Yes Cardiac Rehab Facility Choice List Given to Patient:: Yes Choice Program [facility] CR PHII:: Communication Given to CR, Refer to [facility] It Operations Manager:: Alex Dukes PCP:: Kareem Mai Sessions:: 36 sessions - 3 days/wk, 12 weeks Risk Factors/Lifestyle Smoking Status: Former smoker Hx Hypertension: Yes Hx Diabetes Mellitus Type 2: No Hx Dyslipidemia: Yes Hx Obesity: Yes Height: 1.88 m Weight:: 102.8 kg BMI: 29.0 Stress: Long-standing ETOH: Yes Caffeine: Yes Substance Abuse: No Risk Factor for Sedentary Lifestyle: Lowest Risk Family History: No pertinent history Past Cardiac Illness: Other - SOB/NEW A FIB Knowledge of Condition:: Yes Hospital Course Presenting Symptoms:: SOB NEW A FIB Cardiac Cath Date:: 09/24/18 Medical/Surgical History IA:: No Angina:: No Hypertension:: Yes Dyslipidemia:: Yes Thyroid:: Yes - ON SYNTHROID Discharge/Home/Social Eval Discharge Disposition: Home Cardiac Rehabilitation Info Cardiac Rehabilitation Program Information: Cardiac Rehabilitation is important for patients like you who are recovering from a heart problem. Cardiac rehabilitation programs are recognized as integral to the continued care of the patient with coronary heart disease. The cardiac rehabilitation program is designed to optimize a patient's physical, psychological, and social functioning. Health toddler caregiver work in cardiac rehabilitation programs and assist you with getting the treatments you need to get stronger and healthier - like exercise, healthy eating habits, and medications. Cardiac rehabilitation has been show to help people with heart problems live longer and have better life enjoyment than people who do not go to cardiac rehabilitation. Please contact the Cardiac Rehabilitation Program at [facility] at in two weeks if you have not heard from them.
--- NOTE | 2018-09-24 14:03 | CRPHASE1_ITS ---
Patient Communication PHII Cardiac Rehab Discussed with Patient:: Yes Guide to Cardiac Rehab Given to Patient:: Yes Cardiac Rehab Facility Choice List Given to Patient:: Yes Choice Program [facility] CR PHII:: Communication Given to CR, Refer to [facility] Line Person:: Alex Dukes PCP:: Kareem Mai Sessions:: 36 sessions - 3 days/wk, 12 weeks Risk Factors/Lifestyle Smoking Status: Former smoker Hx Hypertension: Yes Hx Diabetes Mellitus Type 2: No Hx Dyslipidemia: Yes Hx Obesity: Yes Height: 1.88 m Weight:: 102.8 kg BMI: 29.0 Stress: Long-standing ETOH: Yes Caffeine: Yes Substance Abuse: No Risk Factor for Sedentary Lifestyle: Lowest Risk Family History: No pertinent history Past Cardiac Illness: Other - SOB/NEW A FIB Knowledge of Condition:: Yes Hospital Course Presenting Symptoms:: SOB NEW A FIB Cardiac Cath Date:: 09/24/18 Medical/Surgical History NE:: No Angina:: No Hypertension:: Yes Dyslipidemia:: Yes Thyroid:: Yes - ON SYNTHROID Discharge/Home/Social Eval Discharge Disposition: Home Cardiac Rehabilitation Info Cardiac Rehabilitation Program Information: Cardiac Rehabilitation is important for patients like you who are recovering from a heart problem. Cardiac rehabilitation programs are recognized as integral to the continued care of the patient with coronary heart disease. The cardiac rehabilitation program is designed to optimize a patient's physical, psychological, and social functioning. Health career professional work in cardiac rehabilitation programs and assist you with getting the treatments you need to get stronger and healthier - like exercise, healthy eating habits, and medications. Cardiac rehabilitation has been show to help people with heart problems live longer and have better life enjoyment than people who do not go to cardiac rehabilitation. Please contact the Cardiac Rehabilitation Program at [facility] at in two weeks if you have not heard from them.
--- NOTE | 2018-09-24 14:03 | CRPH1.INSTRU ---
General Education CAD and cardiac anatomy and function:: Patient communicates acknowledgment Explanation of diagnoses and procedures:: Patient communicates acknowledgment Sign/Symptoms of TN:: Patient communicates acknowledgment Antiplatelet therapy: Not instructed Proper use of NTG-SL: Not instructed Emergency procedures and activation of EMS: Patient communicates acknowledgment Compliance of all prescribed medications: Not instructed Smoking Patient Nicotine/Smoking Risk Factors Are:: Non-smoker Dyslipidemia Recommendations Include:: Lipid profile not available Dyslipidemia Response Code:: Patient communicates acknowledgment Overweight/Obesity Patient Overweight/Obesity Risk Factors Are:: Overweight = 26-29 Hypertension Recommendations Include:: Maintain BP <130/85 - ON MEDS Heart Disease Heart Disease Response Code:: Patient communicates acknowledgment Diabetes Patient Diabetes Risk Factors Are:: No documented hx of diabetes Metabolic Syndrome Patient Metabolic Syndrome Risk Factors Are [3 of 5]:: Hypertension Metabolic Syndrome Response Code:: Patient communicates acknowledgment Sedentary Recommendations Include:: Monitored Outpatient Cardiac Rehab Stress Stress Response Code:: Patient communicates acknowledgment
[2018-09-24] MEDS: Amiodarone 200 MG Tablet PO ×2 (14:06→22:23)
--- NOTE | 2018-09-24 15:27 | PCM.PN.HOSP ---
Patient Problems: Active and Suspected Problems (Last Updated 09/24/18 @ 14:12 by Ebony Lockhart) A-fib (Acute) Left ventricular thrombus (Acute) CHF (congestive heart failure) (Acute) Cardiomyopathy (Acute) Subjective: Doing well today no chest pain or shortness of breath procedure went well with the stent. Vitals/I&O's: Vital Signs Temp Pulse Resp BP Pulse Ox 97.7 F L 105 H 17 107/87 H 95 09/24/18 12:00 09/24/18 14:12 09/24/18 14:00 09/24/18 14:00 09/24/18 14:00 Oxygen Flow Rate (L/min) 2 Oxygen Delivery Method Room Air Weight: 226 lb 10.163 oz Body Mass Index (BMI) 30.4 Intake and Output for Last 24 Hours 09/22/18 09/23/18 09/24/18 23:59 23:59 23:59 Intake Total 788 / 788 1080 / 1080 0 / 0 Output Total 2950 / 2950 3300 / 3300 250 / 250 Balance -2162 / -2162 -2220 / -2220 -250 / -250 General: Alert, Oriented x3, Cooperative, No apparent distress HEENT: Atraumatic, PERRLA, EOMI, Normocephalic Oral: Moist Mucosa Neck: Supple, No JVD Lungs: Clear to auscultation, Normal air movement, No rhonchi, No wheeze, No rales, Diminished Cardiovascular: No murmurs, Tachycardic, - - Irregular rhythm Abdomen: Soft, Non Tender, Non-Distended, No Hepato-splenomegaly Extremities: No edema, Capillary Refill Less than 3 Seconds Skin: No rashes, No breakdown Neurological: Neuro grossly intact, Sensory exam intact to light touch and pain Psych/Mental Status: Normal Affect, Appropriate Laboratory Results 09/24/18 03:58: Sodium 141, Potassium 4.0, Chloride 109 H, Carbon Dioxide 24.0, Anion Gap 8, BUN 21 H, Creatinine 1.20, Estim Creat Clear Calc 76.11, Est GFR (MDRD) Af Amer 79, Est GFR (MDRD) Non-Af 66, BUN/Creatinine Ratio 17.5, Glucose 116 H, Calcium 8.5 09/24/18 03:58: WBC 7.9, RBC 5.43, Hgb 16.3, Hct 48.4, MCV 89.1, MCH 30.0, MCHC 33.7, RDW 13.9, RDW Differential 45.1 H, Plt Count 211, MPV 10.3, Immature Gran % (Auto) 0.100, Neut % (Auto) 54.9, Lymph % (Auto) 29.1, Posey % (Auto) 10.3 H, Eos % (Auto) 5.0, Baso % (Auto) 0.6, Absolute Neuts (auto) 4.3, Absolute Lymphs (auto) 2.31, Total Counted Not Reportable 09/24/18 03:58: PT 15.7 H, INR 1.3, APTT 31.6 09/24/18 09:01: Activated Clotting Time 186 H Current Medications Acetaminophen (Tylenol) 650 mg PO Q6H PRN PRN PRN Reason: Mild Pain (0-2/10) Amiodarone HCl (Cordarone) 200 mg PO TID [facility] Last Admin: 09/24/18 14:06 Dose: 200 mg Aspirin (Aspirin, Baby) 81 mg PO DAILY@0800 [facility] Last Admin: 09/24/18 05:36 Dose: 81 mg Atorvastatin Calcium (Lipitor) 40 mg PO QHS [facility] Atropine Sulfate () 0.5 mg IV UD PRN PRN Reason: HR <50 bpm Carvedilol (Coreg) 12.5 mg PO BID [facility] Clopidogrel Bisulfate (Plavix) 75 mg PO DAILY [facility] Last Admin: 09/24/18 05:36 Dose: 75 mg Diazepam (Valium) 5 mg PO Q6H PRN PRN PRN Reason: BACK SPASMS/ANXIETY Heparin Sodium (Beef Lung) (Heparin 500 Unit/5 Ml (100/Ml)) 500 unit IV UD PRN PRN Reason: HEPARIN FLUSH Sodium Chloride () 1,000 mls @ 15 mls/hr IV .Q48H [facility] Last Admin: 09/24/18 05:35 Dose: 15 mls/hr Sodium Chloride () 1,000 mls @ 150 mls/hr IV .Q6H40M [facility] Stop: 09/24/18 16:49 Last Admin: 09/24/18 09:45 Dose: 150 mls/hr Labetalol HCl (Trandate) 5 mg IV X1 PRN PRN Reason: SBP > 160 when pulling sheath Levothyroxine Sodium (Synthroid) 150 mcg PO DAILY@0600 [facility] Last Admin: 09/24/18 05:36 Dose: 150 mcg Lisinopril (Zestril) 10 mg PO DAILY [facility] Last Admin: 09/24/18 05:36 Dose: 10 mg Metoclopramide HCl (Reglan) 5 mg IV Q6H PRN PRN Reason: NAUSEA/VOMITING Morphine Sulfate () 2 mg IV Q4H PRN PRN PRN Reason: Mild back pain (0-2/10) Nitroglycerin (Nitrostat) 0.4 mg SUBLINGUAL Q5M PRN PRN Reason: CARDIAC/CHEST PAIN Sodium Chloride () 5 - 15 ml IV UD PRN PRN Reason: SALINE FLUSH Last Admin: 09/23/18 10:59 Dose: 10 ml Sodium Chloride () 500 ml IV BOLUS PRN PRN Reason: VASO-VAGAL PROTOCOL Medical Necessity - Tobacco Use Smoking Status: Former smoker Tobacco Use: Cigarettes Assessment/Plan All Active Problems (Last Updated 09/24/18 @ 14:12 by Ebony Lockhart) A-fib (Acute) Left ventricular thrombus (Acute) CHF (congestive heart failure) (Acute) Cardiomyopathy (Acute) 1. New onset A. fib/left ventricular thrombus/acute systolic heart failure likely secondary to a previous [place]/HTN/HLD -He denies any cardiac history, denies any heart attacks, denies any history of cardiac caths -Echo shows a large left ventricular thrombus with an EF of 20% -Continue with Coreg twice daily, as well as amiodarone -We will continue him on Lipitor -We will hold Xarelto and can restart tomorrow on discharge -Lasix for diuresis -We will continue with his lisinopril for now and monitor his kidney function, his creatinine did improve from 1.35 to 1.17 2. Hypothyroidism -TSH on admission was 0.23 -A follow-up T3-T4 was obtained which were both in the normal ranges -Continue with his current dose of Synthroid DVT: Therapeutic Lovenox Code Visit Inpatient E&M: 43607 Subs Hosp L2
--- NOTE | 2018-09-24 15:32 | PN_ITS ---
Patient Problems: Active and Suspected Problems (Last Updated 09/24/18 @ 14:12 by Ebony Lockhart) A-fib (Acute) Left ventricular thrombus (Acute) CHF (congestive heart failure) (Acute) Cardiomyopathy (Acute) Subjective: Doing well today no chest pain or shortness of breath procedure went well with the stent. Vitals/I&O's: Vital Signs Temp Pulse Resp BP Pulse Ox 97.7 F L 105 H 17 107/87 H 95 09/24/18 12:00 09/24/18 14:12 09/24/18 14:00 09/24/18 14:00 09/24/18 14:00 Oxygen Flow Rate (L/min) 2 Oxygen Delivery Method Room Air Weight: 226 lb 10.163 oz Body Mass Index (BMI) 30.4 Intake and Output for Last 24 Hours 09/22/18 09/23/18 09/24/18 23:59 23:59 23:59 Intake Total 788 / 788 1080 / 1080 0 / 0 Output Total 2950 / 2950 3300 / 3300 250 / 250 Balance -2162 / -2162 -2220 / -2220 -250 / -250 General: Alert, Oriented x3, Cooperative, No apparent distress HEENT: Atraumatic, PERRLA, EOMI, Normocephalic Oral: Moist Mucosa Neck: Supple, No JVD Lungs: Clear to auscultation, Normal air movement, No rhonchi, No wheeze, No rales, Diminished Cardiovascular: No murmurs, Tachycardic, - - Irregular rhythm Abdomen: Soft, Non Tender, Non-Distended, No Hepato-splenomegaly Extremities: No edema, Capillary Refill Less than 3 Seconds Skin: No rashes, No breakdown Neurological: Neuro grossly intact, Sensory exam intact to light touch and pain Psych/Mental Status: Normal Affect, Appropriate Laboratory Results 09/24/18 03:58: Sodium 141, Potassium 4.0, Chloride 109 H, Carbon Dioxide 24.0, Anion Gap 8, BUN 21 H, Creatinine 1.20, Estim Creat Clear Calc 76.11, Est GFR (MDRD) Af Amer 79, Est GFR (MDRD) Non-Af 66, BUN/Creatinine Ratio 17.5, Glucose 116 H, Calcium 8.5 09/24/18 03:58: WBC 7.9, RBC 5.43, Hgb 16.3, Hct 48.4, MCV 89.1, MCH 30.0, MCHC 33.7, RDW 13.9, RDW Differential 45.1 H, Plt Count 211, MPV 10.3, Immature Gran % (Auto) 0.100, Neut % (Auto) 54.9, Lymph % (Auto) 29.1, Wetzel % (Auto) 10.3 H, Eos % (Auto) 5.0, Baso % (Auto) 0.6, Absolute Neuts (auto) 4.3, Absolute Lymphs (auto) 2.31, Total Counted Not Reportable 09/24/18 03:58: PT 15.7 H, INR 1.3, APTT 31.6 09/24/18 09:01: Activated Clotting Time 186 H Current Medications Acetaminophen (Tylenol) 650 mg PO Q6H PRN PRN PRN Reason: Mild Pain (0-2/10) Amiodarone HCl (Cordarone) 200 mg PO TID [facility] Last Admin: 09/24/18 14:06 Dose: 200 mg Aspirin (Aspirin, Baby) 81 mg PO DAILY@0800 [facility] Last Admin: 09/24/18 05:36 Dose: 81 mg Atorvastatin Calcium (Lipitor) 40 mg PO QHS [facility] Atropine Sulfate () 0.5 mg IV UD PRN PRN Reason: HR <50 bpm Carvedilol (Coreg) 12.5 mg PO BID [facility] Clopidogrel Bisulfate (Plavix) 75 mg PO DAILY [facility] Last Admin: 09/24/18 05:36 Dose: 75 mg Diazepam (Valium) 5 mg PO Q6H PRN PRN PRN Reason: BACK SPASMS/ANXIETY Heparin Sodium (Beef Lung) (Heparin 500 Unit/5 Ml (100/Ml)) 500 unit IV UD PRN PRN Reason: HEPARIN FLUSH Sodium Chloride () 1,000 mls @ 15 mls/hr IV .Q48H [facility] Last Admin: 09/24/18 05:35 Dose: 15 mls/hr Sodium Chloride () 1,000 mls @ 150 mls/hr IV .Q6H40M [facility] Stop: 09/24/18 16:49 Last Admin: 09/24/18 09:45 Dose: 150 mls/hr Labetalol HCl (Trandate) 5 mg IV X1 PRN PRN Reason: SBP > 160 when pulling sheath Levothyroxine Sodium (Synthroid) 150 mcg PO DAILY@0600 [facility] Last Admin: 09/24/18 05:36 Dose: 150 mcg Lisinopril (Zestril) 10 mg PO DAILY [facility] Last Admin: 09/24/18 05:36 Dose: 10 mg Metoclopramide HCl (Reglan) 5 mg IV Q6H PRN PRN Reason: NAUSEA/VOMITING Morphine Sulfate () 2 mg IV Q4H PRN PRN PRN Reason: Mild back pain (0-2/10) Nitroglycerin (Nitrostat) 0.4 mg SUBLINGUAL Q5M PRN PRN Reason: CARDIAC/CHEST PAIN Sodium Chloride () 5 - 15 ml IV UD PRN PRN Reason: SALINE FLUSH Last Admin: 09/23/18 10:59 Dose: 10 ml Sodium Chloride () 500 ml IV BOLUS PRN PRN Reason: VASO-VAGAL PROTOCOL Medical Necessity - Tobacco Use Smoking Status: Former smoker Tobacco Use: Cigarettes Assessment/Plan All Active Problems (Last Updated 09/24/18 @ 14:12 by Ebony Lockhart) A-fib (Acute) Left ventricular thrombus (Acute) CHF (congestive heart failure) (Acute) Cardiomyopathy (Acute) 1. New onset A. fib/left ventricular thrombus/acute systolic heart failure likely secondary to a previous [place]/HTN/HLD -He denies any cardiac history, denies any heart attacks, denies any history of cardiac caths -Echo shows a large left ventricular thrombus with an EF of 20% -Continue with Coreg twice daily, as well as amiodarone -We will continue him on Lipitor -We will hold Xarelto and can restart tomorrow on discharge -Lasix for diuresis -We will continue with his lisinopril for now and monitor his kidney function, his creatinine did improve from 1.35 to 1.17 2. Hypothyroidism -TSH on admission was 0.23 -A follow-up T3-T4 was obtained which were both in the normal ranges -Continue with his current dose of Synthroid DVT: Therapeutic Lovenox Code Visit Inpatient E&M: 32682 Subs Hosp L2
--- NOTE | 2018-09-24 16:45 | PN_ITS ---
Progress Note Patient is scheduled for a post hospital office appointment with the [facility] on October 13, 2018 at 3 PM with Sohail Kimble Nurse Practitioner.
[2018-09-24] MEDS: Atorvastatin Calcium 40 MG Tablet PO (22:23)
[2018-09-25] VITALS (27 sets, daily range): BP systolic 76–138; BP diastolic 19–96; PULSE 71–116; RESP 10–25; TEMP 36.3–36.7; O2SAT 91–99
[2018-09-25] MEDS: Amiodarone 200 MG Tablet PO ×3 (05:03→21:18)
[2018-09-25] MEDS: Levothyroxine 150 MCG Tablet PO (05:03)
[2018-09-25 05:05] LABS: Hematocrit 46.9 % (40-54); Hemoglobin 15.6 g/dl (13.0-16.5); Mean Corp Hgb Conc 33.3 g/gl (32-36); Mean Corpuscular Hgb 30.4 pg (27.0-32.0); Mean Corpuscular Volume 91.4 fL (80-94); Mean Platelet Vol. 9.9 fl (6.2-12.0); Platelet Count 186 K/mm3 (150-450); RBC Distribution Width CV 14.1 % (11.6-14.6); RBC Distribution Width SD 47.2 fl (35.1-43.9); Red Blood Count 5.13 M/mm3 (4.6-6.2); White Blood Count 9.8 K/mm3 (4.4-11.0)
[2018-09-25 05:06] LABS: Scan Indicated on CBC? Y/N NO
[2018-09-25 05:28] LABS: Anion Gap 7 (5-15); BUN 21 mg/dL (7-18); BUN/Creat Ratio 17.1 RATIO (10-20); Calcium,Total 8.6 mg/dL (8.5-10.1); Chloride 110 mmol/L (98-107); Creatinine, Serum 1.23 mg/dL (0.70-1.30); EST Glomerular Filtration Rate 64 mL/min (>60); Est Glom Filt Rate - Afr Amer 77 mL/min (>60); Estimated Creatinine Clearance 74.25 ml/min; Glucose 103 mg/dL (74-106); Sodium Level 143 mmol/L (136-145)
[2018-09-25] MEDS: Carvedilol 12.5 MG Tablet PO ×2 (08:19→21:18)
[2018-09-25] MEDS: Aspirin 81 MG TAB.CHEW PO (08:19)
[2018-09-25] MEDS: Lisinopril 10 MG Tablet PO (08:20)
[2018-09-25] MEDS: Clopidogrel Bisulfate 75 MG Tablet PO (08:20)
[2018-09-25] MEDS: Furosemide 20 MG Tablet PO (08:34)
--- NOTE | 2018-09-25 09:40 | CASEMGMT ---
SW spoke w/pt briefly in regard to alcohol use, as in chart it is documented pt drinks 12 beers/week. Pt's present also. Pt does not identify his alcohol use as an issue, not interested in any additional information or referrals. SW remains available should any social service needs arise for pt. PARKER Kirkpatrick
--- NOTE | 2018-09-25 10:00 | EKG12_ITS ---
Test Reason : AM EKG Blood Pressure : / mmHG Vent. Rate : 093 BPM Atrial Rate : 052 BPM P-R Int : 000 ms QRS Dur : 094 ms QT Int : 376 ms P-R-T Axes : 000 024 128 degrees QTc Int : 467 ms Atrial fibrillation with premature ventricular or aberrantly conducted complexes T wave abnormality, consider lateral ischemia or digitalis effect Prolonged QT Abnormal ECG When compared with ECG of 24-SEP-2018 09:49, MANUAL COMPARISON REQUIRED, DATA IS UNCONFIRMED Confirmed by TORO CHEEMA ([id number]), index editor DANYA GODFREY ([id number] on 09/29/2018 4:48:28 PM Referred By: CASSIDY Confirmed By:AIDA CHEEMA
--- NOTE | 2018-09-25 10:36 | PN.CARD_ITS ---
Subjectve: The patient is awake and alert at this time. He denies any acute chest discomfort or acute dyspnea. He has been up and briefly in the chair. He den ied any obvious symptoms with respect to being up and in the chair. He continues with his concerns of an upper respiratory/nasal type drainage issue. Objective: Vital Signs Temp Pulse Resp BP Pulse Ox 97.4 F L 105 H 14 104/73 97 09/25/18 05:00 09/25/18 06:00 09/25/18 06:00 09/25/18 06:00 09/25/18 06:00 Oxygen Flow Rate (L/min) 2 Oxygen Delivery Method Room Air Weight: 232 lb 12.93 oz Body Mass Index (BMI) 30.4 Intake and Output for Last 24 Hours 09/23/18 09/24/18 09/25/18 23:59 23:59 23:59 Intake Total 1080 / 1080 1600 / 1600 240 / 240 Output Total 3300 / 3300 450 / 450 300 / 300 Balance -2220 / -2220 1150 / 1150 -60 / -60 General: Awake, Alert, Oriented x 3, Cooperative, No Acute Distress HEENT: Atraumatic, Normocephalic, PERRL Oral: Moist Mucosa Neck: Supple, Good ROM, No JVD Lungs: Clear to auscultation Cardiovascular: Irregular Rhythm, Normal S1, Normal S2 Vascular: Normal Femoral Pulses, Normal Radial Pulses Abdomen: Bowel Sounds Present, Soft, Non Tender Extremities: No edema Neurological: No Focal Motor or Sensory Deficit Psych/Mental Status: Appropriate 09/25/18 05:00: WBC 9.8, RBC 5.13, Hgb 15.6, Hct 46.9, MCV 91.4, MCH 30.4, MCHC 33.3, RDW 14.1, RDW Differential 47.2 H, Plt Count 186, MPV 9.9 09/25/18 05:00: Sodium 143, Potassium 4.0, Chloride 110 H, Carbon Dioxide 26.0, Anion Gap 7, BUN 21 H, Creatinine 1.23, Est GFR (MDRD) Af Amer 77, Est GFR (MDRD) Non-Af 64, BUN/Creatinine Ratio 17.1, Glucose 103, Calcium 8.6 Rhythm: Atrial fibrillation EKG: Atrial fibrillation; PVCs; T wave abnormality potentially compatible with myocardial ischemia-lateral Medical Necessity - Tobacco Use Smoking Status: Former smoker Tobacco Use: Cigarettes Assessment/Plan 1. Atrial fibrillation The patient is in atrial fibrillation. Is unclear how long the patient has been in atrial fibrillation. It is also unclear whether this is contributing to her result of his underlying cardiomyopathy. At the present time the patient will continue rate control therapy. He has been placed on oral antiarrhythmic therapy and attempt to help maintain rate and potentially help regain sinus rhythm. He will restart anticoagulant therapy. 2. CHF: Acute systolic The patient does have CHF. It appears to be acute systolic. It is unclear as to how long he has been in CHF. At the present time he will continue medical management. This will include agents such as beta blockers, diuretics, and afterload reducing agents. The dosages of his medications may have to be adjusted based upon his lower blood pressure. 3. Cardiomyopathy He does have findings compatible with an underlying cardiomyopathy. It appears he has a cardiomyopathy that is out of proportion to his underlying CAD. At the present time he will continue medical management. 4. CAD He was found to have angiographically significant appearing CAD of the proximal RCA. He underwent RCA PCI. Hopefully this will help with respect to his underlying cardiovascular condition. He will need continued risk factor evaluation and care as deemed appropriate. 5. Left ventricular apical thrombus He does have a left ventricular apical thrombus. He will restart anticoagulant therapy. 6. Hyperlipidemia He will continue lipid-lowering therapy. 7. Hypertension He will continue antihypertensive therapy. 8. 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 He was treated medically with warfarin/Coumadin. He has had no recurrent thrombi embolic events to the best of his knowledge. Plan: The above was discussed with the patient and his spouse. This note was generated using a voice recognition system and there may be incorrect words, spelling or punctuation that were not noted when reviewing the office note prior to saving.
--- NOTE | 2018-09-25 12:47 | PCM.PN.HOSP ---
Patient Problems: Active and Suspected Problems (Last Updated 09/24/18 @ 14:12 by Ebony Lockhart) A-fib (Acute) Left ventricular thrombus (Acute) CHF (congestive heart failure) (Acute) Cardiomyopathy (Acute) Subjective: Doing well, denies any chest pain or dyspnea however he still is having the upper respiratory difficulty for when he came in. Vitals/I&O's: Vital Signs Temp Pulse Resp BP Pulse Ox 98 F 100 17 84/46 L 98 09/25/18 12:00 09/25/18 12:00 09/25/18 12:00 09/25/18 12:00 09/25/18 12:00 Oxygen Flow Rate (L/min) 2 Oxygen Delivery Method Room Air Weight: 232 lb 12.93 oz Body Mass Index (BMI) 30.4 Intake and Output for Last 24 Hours 09/23/18 09/24/18 09/25/18 23:59 23:59 23:59 Intake Total 1080 / 1080 1600 / 1600 540 / 540 Output Total 3300 / 3300 450 / 450 650 / 650 Balance -2220 / -2220 1150 / 1150 -110 / -110 General: Alert, Oriented x3, Cooperative, No apparent distress HEENT: Atraumatic, PERRLA, EOMI, Normocephalic Oral: Moist Mucosa Neck: Supple, No JVD Lungs: Clear to auscultation, Normal air movement, No rhonchi, No wheeze, No rales, Diminished Cardiovascular: No murmurs, Tachycardic, - - Irregular rhythm Abdomen: Soft, Non Tender, Non-Distended, No Hepato-splenomegaly Extremities: No edema, Capillary Refill Less than 3 Seconds Skin: No rashes, No breakdown Neurological: Neuro grossly intact, Sensory exam intact to light touch and pain Psych/Mental Status: Normal Affect, Appropriate Laboratory Results 09/25/18 05:00: WBC 9.8, RBC 5.13, Hgb 15.6, Hct 46.9, MCV 91.4, MCH 30.4, MCHC 33.3, RDW 14.1, RDW Differential 47.2 H, Plt Count 186, MPV 9.9 09/25/18 05:00: Sodium 143, Potassium 4.0, Chloride 110 H, Carbon Dioxide 26.0, Anion Gap 7, BUN 21 H, Creatinine 1.23, Estim Creat Clear Calc 74.25, Est GFR (MDRD) Af Amer 77, Est GFR (MDRD) Non-Af 64, BUN/Creatinine Ratio 17.1, Glucose 103, Calcium 8.6 Current Medications Acetaminophen (Tylenol) 650 mg PO Q6H PRN PRN PRN Reason: Mild Pain (0-2/10) Amiodarone HCl (Cordarone) 200 mg PO TID [facility] Last Admin: 09/25/18 05:03 Dose: 200 mg Aspirin (Aspirin, Baby) 81 mg PO DAILY@0800 [facility] Last Admin: 09/25/18 08:19 Dose: 81 mg Atorvastatin Calcium (Lipitor) 40 mg PO QHS [facility] Last Admin: 09/24/18 22:23 Dose: 40 mg Atropine Sulfate () 0.5 mg IV UD PRN PRN Reason: HR <50 bpm Carvedilol (Coreg) 12.5 mg PO BID [facility] Last Admin: 09/25/18 08:19 Dose: 12.5 mg Clopidogrel Bisulfate (Plavix) 75 mg PO DAILY [facility] Last Admin: 09/25/18 08:20 Dose: 75 mg Diazepam (Valium) 5 mg PO Q6H PRN PRN PRN Reason: BACK SPASMS/ANXIETY Furosemide (Lasix) 20 mg PO DAILY [facility] Last Admin: 09/25/18 08:34 Dose: 20 mg Heparin Sodium (Beef Lung) (Heparin 500 Unit/5 Ml (100/Ml)) 500 unit IV UD PRN PRN Reason: HEPARIN FLUSH Sodium Chloride () 1,000 mls @ 15 mls/hr IV .Q48H [facility] Last Admin: 09/24/18 05:35 Dose: 15 mls/hr Labetalol HCl (Trandate) 5 mg IV X1 PRN PRN Reason: SBP > 160 when pulling sheath Levothyroxine Sodium (Synthroid) 150 mcg PO DAILY@0600 [facility] Last Admin: 09/25/18 05:03 Dose: 150 mcg Lisinopril (Zestril) 2.5 mg PO BID [facility] Metoclopramide HCl (Reglan) 5 mg IV Q6H PRN PRN Reason: NAUSEA/VOMITING Morphine Sulfate () 2 mg IV Q4H PRN PRN PRN Reason: Mild back pain (0-2/10) Nitroglycerin (Nitrostat) 0.4 mg SUBLINGUAL Q5M PRN PRN Reason: CARDIAC/CHEST PAIN Sodium Chloride () 5 - 15 ml IV UD PRN PRN Reason: SALINE FLUSH Last Admin: 09/23/18 10:59 Dose: 10 ml Sodium Chloride () 500 ml IV BOLUS PRN PRN Reason: VASO-VAGAL PROTOCOL Medical Necessity - Tobacco Use Smoking Status: Former smoker Tobacco Use: Cigarettes Assessment/Plan All Active Problems (Last Updated 09/24/18 @ 14:12 by Ebony Lockhart) A-fib (Acute) Left ventricular thrombus (Acute) CHF (congestive heart failure) (Acute) Cardiomyopathy (Acute) 1. New onset A. fib/left ventricular thrombus/acute systolic heart failure likely secondary to a previous [place]/HTN/HLD -He denies any cardiac history, denies any heart attacks, denies any history of cardiac caths -Echo shows a large left ventricular thrombus with an EF of 20% -He had a stent placed to the RCA, will continue with aspirin, Plavix -Continue with Coreg twice daily, as well as amiodarone -We will continue him on Lipitor -Restart Xarelto this evening -Lasix for diuresis -We will continue with his lisinopril for now and monitor his kidney function, his creatinine did improve from 1.35, will decrease the dose of 2.5 given his symptomatic hypotension overnight 2. Hypothyroidism -TSH on admission was 0.23 -A follow-up T3-T4 was obtained which were both in the normal ranges -Continue with his current dose of Synthroid DVT: Xarelto Code Visit Inpatient E&M: 46001 Subs Hosp L2
--- NOTE | 2018-09-25 12:50 | PN_ITS ---
Patient Problems: Active and Suspected Problems (Last Updated 09/24/18 @ 14:12 by Ebony Lockhart) A-fib (Acute) Left ventricular thrombus (Acute) CHF (congestive heart failure) (Acute) Cardiomyopathy (Acute) Subjective: Doing well, denies any chest pain or dyspnea however he still is having the upper respiratory difficulty for when he came in. Vitals/I&O's: Vital Signs Temp Pulse Resp BP Pulse Ox 98 F 100 17 84/46 L 98 09/25/18 12:00 09/25/18 12:00 09/25/18 12:00 09/25/18 12:00 09/25/18 12:00 Oxygen Flow Rate (L/min) 2 Oxygen Delivery Method Room Air Weight: 232 lb 12.93 oz Body Mass Index (BMI) 30.4 Intake and Output for Last 24 Hours 09/23/18 09/24/18 09/25/18 23:59 23:59 23:59 Intake Total 1080 / 1080 1600 / 1600 540 / 540 Output Total 3300 / 3300 450 / 450 650 / 650 Balance -2220 / -2220 1150 / 1150 -110 / -110 General: Alert, Oriented x3, Cooperative, No apparent distress HEENT: Atraumatic, PERRLA, EOMI, Normocephalic Oral: Moist Mucosa Neck: Supple, No JVD Lungs: Clear to auscultation, Normal air movement, No rhonchi, No wheeze, No rales, Diminished Cardiovascular: No murmurs, Tachycardic, - - Irregular rhythm Abdomen: Soft, Non Tender, Non-Distended, No Hepato-splenomegaly Extremities: No edema, Capillary Refill Less than 3 Seconds Skin: No rashes, No breakdown Neurological: Neuro grossly intact, Sensory exam intact to light touch and pain Psych/Mental Status: Normal Affect, Appropriate Laboratory Results 09/25/18 05:00: WBC 9.8, RBC 5.13, Hgb 15.6, Hct 46.9, MCV 91.4, MCH 30.4, MCHC 33.3, RDW 14.1, RDW Differential 47.2 H, Plt Count 186, MPV 9.9 09/25/18 05:00: Sodium 143, Potassium 4.0, Chloride 110 H, Carbon Dioxide 26.0, Anion Gap 7, BUN 21 H, Creatinine 1.23, Estim Creat Clear Calc 74.25, Est GFR (MDRD) Af Amer 77, Est GFR (MDRD) Non-Af 64, BUN/Creatinine Ratio 17.1, Glucose 103, Calcium 8.6 Current Medications Acetaminophen (Tylenol) 650 mg PO Q6H PRN PRN PRN Reason: Mild Pain (0-2/10) Amiodarone HCl (Cordarone) 200 mg PO TID [facility] Last Admin: 09/25/18 05:03 Dose: 200 mg Aspirin (Aspirin, Baby) 81 mg PO DAILY@0800 [facility] Last Admin: 09/25/18 08:19 Dose: 81 mg Atorvastatin Calcium (Lipitor) 40 mg PO QHS [facility] Last Admin: 09/24/18 22:23 Dose: 40 mg Atropine Sulfate () 0.5 mg IV UD PRN PRN Reason: HR <50 bpm Carvedilol (Coreg) 12.5 mg PO BID [facility] Last Admin: 09/25/18 08:19 Dose: 12.5 mg Clopidogrel Bisulfate (Plavix) 75 mg PO DAILY [facility] Last Admin: 09/25/18 08:20 Dose: 75 mg Diazepam (Valium) 5 mg PO Q6H PRN PRN PRN Reason: BACK SPASMS/ANXIETY Furosemide (Lasix) 20 mg PO DAILY [facility] Last Admin: 09/25/18 08:34 Dose: 20 mg Heparin Sodium (Beef Lung) (Heparin 500 Unit/5 Ml (100/Ml)) 500 unit IV UD PRN PRN Reason: HEPARIN FLUSH Sodium Chloride () 1,000 mls @ 15 mls/hr IV .Q48H [facility] Last Admin: 09/24/18 05:35 Dose: 15 mls/hr Labetalol HCl (Trandate) 5 mg IV X1 PRN PRN Reason: SBP > 160 when pulling sheath Levothyroxine Sodium (Synthroid) 150 mcg PO DAILY@0600 [facility] Last Admin: 09/25/18 05:03 Dose: 150 mcg Lisinopril (Zestril) 2.5 mg PO BID [facility] Metoclopramide HCl (Reglan) 5 mg IV Q6H PRN PRN Reason: NAUSEA/VOMITING Morphine Sulfate () 2 mg IV Q4H PRN PRN PRN Reason: Mild back pain (0-2/10) Nitroglycerin (Nitrostat) 0.4 mg SUBLINGUAL Q5M PRN PRN Reason: CARDIAC/CHEST PAIN Sodium Chloride () 5 - 15 ml IV UD PRN PRN Reason: SALINE FLUSH Last Admin: 09/23/18 10:59 Dose: 10 ml Sodium Chloride () 500 ml IV BOLUS PRN PRN Reason: VASO-VAGAL PROTOCOL Medical Necessity - Tobacco Use Smoking Status: Former smoker Tobacco Use: Cigarettes Assessment/Plan All Active Problems (Last Updated 09/24/18 @ 14:12 by Ebony Lockhart) A-fib (Acute) Left ventricular thrombus (Acute) CHF (congestive heart failure) (Acute) Cardiomyopathy (Acute) 1. New onset A. fib/left ventricular thrombus/acute systolic heart failure likely secondary to a previous WA/HTN/HLD -He denies any cardiac history, denies any heart attacks, denies any history of cardiac caths -Echo shows a large left ventricular thrombus with an EF of 20% -He had a stent placed to the RCA, will continue with aspirin, Plavix -Continue with Coreg twice daily, as well as amiodarone -We will continue him on Lipitor -Restart Xarelto this evening -Lasix for diuresis -We will continue with his lisinopril for now and monitor his kidney function, his creatinine did improve from 1.35, will decrease the dose of 2.5 given his symptomatic hypotension overnight 2. Hypothyroidism -TSH on admission was 0.23 -A follow-up T3-T4 was obtained which were both in the normal ranges -Continue with his current dose of Synthroid DVT: Xarelto Code Visit Inpatient E&M: [id number] Subs Hosp L2
[2018-09-25] MEDS: Rivaroxaban 20 MG Tablet PO (15:02)
[2018-09-25] MEDS: Atorvastatin Calcium 40 MG Tablet PO (21:18)
[2018-09-26] VITALS (22 sets, daily range): BP systolic 73–126; BP diastolic 54–83; PULSE 80–108; RESP 11–22; TEMP 36.2–36.6; O2SAT 95–99
[2018-09-26] MEDS: 0.9% NaCl Peripheral Flush Adult/Peds IV (04:59)
[2018-09-26] MEDS: Levothyroxine 150 MCG Tablet PO (05:00)
[2018-09-26] MEDS: Amiodarone 200 MG Tablet PO ×3 (05:00→21:21)
[2018-09-26 05:33] LABS: Anion Gap 8 (5-15); BUN 24 mg/dL (7-18); Calcium,Total 8.3 mg/dL (8.5-10.1); Chloride 111 mmol/L (98-107); EST Glomerular Filtration Rate 66 mL/min (>60); Est Glom Filt Rate - Afr Amer 79 mL/min (>60); Estimated Creatinine Clearance 76.11 ml/min; Glucose 104 mg/dL (74-106); Potassium 4.6 mmol/L (3.5-5.1); Sodium Level 143 mmol/L (136-145)
[2018-09-26] MEDS: Aspirin 81 MG TAB.CHEW PO (08:57)
[2018-09-26] MEDS: Clopidogrel Bisulfate 75 MG Tablet PO (08:58)
[2018-09-26] MEDS: Carvedilol 12.5 MG Tablet PO (08:58)
[2018-09-26] MEDS: Furosemide 20 MG Tablet PO (09:23)
--- NOTE | 2018-09-26 10:00 | EKG12_ITS ---
Test Reason : AM Blood Pressure : / mmHG Vent. Rate : 090 BPM Atrial Rate : 070 BPM P-R Int : 000 ms QRS Dur : 094 ms QT Int : 398 ms P-R-T Axes : 000 048 129 degrees QTc Int : 486 ms Atrial fibrillation T wave abnormality, consider lateral ischemia or digitalis effect Prolonged QT Abnormal ECG Confirmed by MATTHEW MCKINNON, ARACELI ([id number]), film or videotape editor DANYA GODFREY ([id number]) on 09/29/2018 4:31:58 PM Referred By: Confirmed By:ARACELI CASTRO MD
--- NOTE | 2018-09-26 10:13 | CASEMGMT ---
ODILIA CM Note: Plan is for Xarelto on dc. ODILIA MCKENZIE called to [facility] to verify copay. Per rep Xarelto copay is $30/month and $75 if mailed in for 3 month supply. ODILIA MCKENZIE updated patient and savings card for Xarelto 30 day free given. Modesta JORDAN RN ACM
--- NOTE | 2018-09-26 14:37 | PCM.PN.CARD ---
Subjectve: The patient remains in the ICU. He denies ongoing chest pain or worsening shortness of breath. He also denies lightheadedness / dizziness upon standing. He has not had any significant ambulation. Objective: Vital Signs Temp Pulse Resp BP Pulse Ox 98 F 90 13 78/54 L 99 09/26/18 12:00 09/26/18 12:00 09/26/18 12:00 09/26/18 12:00 09/26/18 12:00 Oxygen Flow Rate (L/min) 2 Oxygen Delivery Method Room Air Weight: 235 lb 10.786 oz Body Mass Index (BMI) 30.4 Intake and Output for Last 24 Hours 09/24/18 09/25/18 09/26/18 23:59 23:59 23:59 Intake Total 1600 / 1600 1140 / 1140 450 / 450 Output Total 450 / 450 1350 / 1350 450 / 450 Balance 1150 / 1150 -210 / -210 0 / 0 General: Awake, Alert, Oriented x 3, Cooperative, No Acute Distress HEENT: Atraumatic, Normocephalic, PERRL, EOMI, Sclera Non Icteric Oral: Moist Mucosa Neck: Supple, Good ROM, No JVD Lungs: Clear to auscultation Cardiovascular: Irregular Rhythm, Normal S1, Normal S2 Abdomen: Bowel Sounds Present, Soft, Non Tender Extremities: No edema Neurological: No Focal Motor or Sensory Deficit Psych/Mental Status: Appropriate 09/26/18 04:55: Sodium 143, Potassium 4.6, Chloride 111 H, Carbon Dioxide 24.0, Anion Gap 8, BUN 24 H, Creatinine 1.20, Est GFR (MDRD) Af Amer 79, Est GFR (MDRD) Non-Af 66, BUN/Creatinine Ratio 20.0, Glucose 104, Calcium 8.3 L Rhythm: atrial fibrillation Medical Necessity - Tobacco Use Smoking Status: Former smoker Tobacco Use: Cigarettes Assessment/Plan 1. Atrial fibrillation The patient is in atrial fibrillation. Is unclear how long the patient has been in atrial fibrillation. It is also unclear whether this is contributing to her result of his underlying cardiomyopathy. At the present time the patient will continue rate control therapy. His beta leah may need reduced secondary to his hypotension. Thus, he will also receive digoxin, with follow up digoxin levels, as well continuing on the amiodarone therapy. He will remain on anticoagulant therapy. 2. CHF: Acute systolic The patient does have CHF. It appears to be acute systolic. It is unclear as to how long he has been in CHF. At the present time he will continue medical management. This will include agents such as beta blockers, diuretics, and afterload reducing agents. An attempt will be made to keep him on carvedilol (if not then metoprolol xl), alter his diuretics to aldactone, and temporarily hold on the LATA-I. Hopefully he can resume an LATA-I or ARB or an agent such as entresto - once his BP tolerates. 3. Cardiomyopathy He does have findings compatible with an underlying cardiomyopathy. It appears he has a cardiomyopathy that is out of proportion to his underlying CAD. At the present time he will continue medical management. 4. CAD He was found to have angiographically significant appearing CAD of the proximal RCA. He underwent RCA PCI. Hopefully this will help with respect to his underlying cardiovascular condition. He will need continued risk factor evaluation and care as deemed appropriate. 5. Left ventricular apical thrombus He does have a left ventricular apical thrombus. He will restart anticoagulant therapy. 6. Hyperlipidemia He will continue lipid-lowering therapy. 7. Hypertension He will continue medical therapy as tolerated. 8. 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 He was treated medically with warfarin/Coumadin. He has had no recurrent thrombi embolic events to the best of his knowledge. Plan: The above was discussed with the patient and Dr. Aparicio. This note was generated using a voice recognition system and there may be incorrect words, spelling or punctuation that were not noted when reviewing the office note prior to saving.
--- NOTE | 2018-09-26 15:44 | PCM.PN.HOSP ---
Patient Problems: Active and Suspected Problems (Last Updated 09/24/18 @ 14:12 by Ebony Lockhart) A-fib (Acute) Left ventricular thrombus (Acute) CHF (congestive heart failure) (Acute) Cardiomyopathy (Acute) Subjective: Doing well, denies any chest pain, shortness of breath, lightheadedness, or dizziness. Has not had any syncope despite having lower systolic blood pressures. During the interview his blood pressure was 89 systolic with a map of 66. Vitals/I&O's: Vital Signs Temp Pulse Resp BP Pulse Ox 98 F 88 14 96/74 99 09/26/18 12:00 09/26/18 15:00 09/26/18 15:00 09/26/18 15:00 09/26/18 12:00 Oxygen Flow Rate (L/min) 2 Oxygen Delivery Method Room Air Weight: 235 lb 10.786 oz Body Mass Index (BMI) 30.4 Intake and Output for Last 24 Hours 09/24/18 09/25/18 09/26/18 23:59 23:59 23:59 Intake Total 1600 / 1600 1140 / 1140 450 / 450 Output Total 450 / 450 1350 / 1350 450 / 450 Balance 1150 / 1150 -210 / -210 0 / 0 General: Alert, Oriented x3, Cooperative, No apparent distress HEENT: Atraumatic, PERRLA, EOMI, Normocephalic Oral: Moist Mucosa Neck: Supple, No JVD Lungs: Clear to auscultation, Normal air movement, No rhonchi, No wheeze, No rales, Diminished Cardiovascular: No murmurs, Tachycardic, - - Irregular rhythm Abdomen: Soft, Non Tender, Non-Distended, No Hepato-splenomegaly Extremities: No edema, Capillary Refill Less than 3 Seconds Skin: No rashes, No breakdown Neurological: Neuro grossly intact, Sensory exam intact to light touch and pain Psych/Mental Status: Normal Affect, Appropriate Laboratory Results 09/26/18 04:55: Sodium 143, Potassium 4.6, Chloride 111 H, Carbon Dioxide 24.0, Anion Gap 8, BUN 24 H, Creatinine 1.20, Estim Creat Clear Calc 76.11, Est GFR (MDRD) Af Amer 79, Est GFR (MDRD) Non-Af 66, BUN/Creatinine Ratio 20.0, Glucose 104, Calcium 8.3 L Current Medications Acetaminophen (Tylenol) 650 mg PO Q6H PRN PRN PRN Reason: Mild Pain (0-2/10) Amiodarone HCl (Cordarone) 200 mg PO TID [facility] Last Admin: 09/26/18 05:00 Dose: 200 mg Aspirin (Aspirin, Baby) 81 mg PO DAILY@0800 [facility] Last Admin: 09/26/18 08:57 Dose: 81 mg Atorvastatin Calcium (Lipitor) 40 mg PO QHS [facility] Last Admin: 09/25/18 21:18 Dose: 40 mg Atropine Sulfate () 0.5 mg IV UD PRN PRN Reason: HR <50 bpm Carvedilol (Coreg) 6.25 mg PO BID [facility] Clopidogrel Bisulfate (Plavix) 75 mg PO DAILY [facility] Last Admin: 09/26/18 08:58 Dose: 75 mg Diazepam (Valium) 5 mg PO Q6H PRN PRN PRN Reason: BACK SPASMS/ANXIETY Digoxin (Lanoxin) 250 mcg PO DAILY [facility] Heparin Sodium (Beef Lung) (Heparin 500 Unit/5 Ml (100/Ml)) 500 unit IV UD PRN PRN Reason: HEPARIN FLUSH Sodium Chloride () 1,000 mls @ 15 mls/hr IV .Q48H [facility] Last Admin: 09/25/18 18:41 Dose: Not Given Labetalol HCl (Trandate) 5 mg IV X1 PRN PRN Reason: SBP > 160 when pulling sheath Levothyroxine Sodium (Synthroid) 150 mcg PO DAILY@0600 [facility] Last Admin: 09/26/18 05:00 Dose: 150 mcg Metoclopramide HCl (Reglan) 5 mg IV Q6H PRN PRN Reason: NAUSEA/VOMITING Morphine Sulfate () 2 mg IV Q4H PRN PRN PRN Reason: Mild back pain (0-2/10) Nitroglycerin (Nitrostat) 0.4 mg SUBLINGUAL Q5M PRN PRN Reason: CARDIAC/CHEST PAIN Rivaroxaban (Xarelto) 20 mg PO DINNER [facility] Sodium Chloride () 5 - 15 ml IV UD PRN PRN Reason: SALINE FLUSH Last Admin: 09/26/18 04:59 Dose: 10 ml Sodium Chloride () 500 ml IV BOLUS PRN PRN Reason: VASO-VAGAL PROTOCOL Spironolactone (Aldactone) 12.5 mg PO DAILY [facility] Medical Necessity - Tobacco Use Smoking Status: Former smoker Tobacco Use: Cigarettes Assessment/Plan All Active Problems (Last Updated 09/24/18 @ 14:12 by Ebony Lockhart) A-fib (Acute) Left ventricular thrombus (Acute) CHF (congestive heart failure) (Acute) Cardiomyopathy (Acute) 1. New onset A. fib/left ventricular thrombus/acute systolic heart failure likely secondary to a previous PR/HTN/HLD -He denies any cardiac history, denies any heart attacks, denies any history of cardiac caths -Echo shows a large left ventricular thrombus with an EF of 20% -He had a stent placed to the RCA, will continue with aspirin, Plavix -Continue with Coreg twice daily, as well as amiodarone. We will decrease his Coreg dose secondary to his blood pressure issues and add digoxin -We will continue him on Lipitor -Restart Xarelto this evening -We will discontinue his Lasix secondary to his low blood pressure, and will start his Aldactone -We will hold his lisinopril completely 2. Hypothyroidism -TSH on admission was 0.23 -A follow-up T3-T4 was obtained which were both in the normal ranges -Continue with his current dose of Synthroid DVT: Xarelto Code Visit Inpatient E&M: [id number] Subs Hosp L2
--- NOTE | 2018-09-26 15:48 | PN_ITS ---
Patient Problems: Active and Suspected Problems (Last Updated 09/24/18 @ 14:12 by Ebony Lockhart) A-fib (Acute) Left ventricular thrombus (Acute) CHF (congestive heart failure) (Acute) Cardiomyopathy (Acute) Subjective: Doing well, denies any chest pain, shortness of breath, lightheadedness, or dizziness. Has not had any syncope despite having lower systolic blood pressures. During the interview his blood pressure was 89 systolic with a map of 66. Vitals/I&O's: Vital Signs Temp Pulse Resp BP Pulse Ox 98 F 88 14 96/74 99 09/26/18 12:00 09/26/18 15:00 09/26/18 15:00 09/26/18 15:00 09/26/18 12:00 Oxygen Flow Rate (L/min) 2 Oxygen Delivery Method Room Air Weight: 235 lb 10.786 oz Body Mass Index (BMI) 30.4 Intake and Output for Last 24 Hours 09/24/18 09/25/18 09/26/18 23:59 23:59 23:59 Intake Total 1600 / 1600 1140 / 1140 450 / 450 Output Total 450 / 450 1350 / 1350 450 / 450 Balance 1150 / 1150 -210 / -210 0 / 0 General: Alert, Oriented x3, Cooperative, No apparent distress HEENT: Atraumatic, PERRLA, EOMI, Normocephalic Oral: Moist Mucosa Neck: Supple, No JVD Lungs: Clear to auscultation, Normal air movement, No rhonchi, No wheeze, No rales, Diminished Cardiovascular: No murmurs, Tachycardic, - - Irregular rhythm Abdomen: Soft, Non Tender, Non-Distended, No Hepato-splenomegaly Extremities: No edema, Capillary Refill Less than 3 Seconds Skin: No rashes, No breakdown Neurological: Neuro grossly intact, Sensory exam intact to light touch and pain Psych/Mental Status: Normal Affect, Appropriate Laboratory Results 09/26/18 04:55: Sodium 143, Potassium 4.6, Chloride 111 H, Carbon Dioxide 24.0, Anion Gap 8, BUN 24 H, Creatinine 1.20, Estim Creat Clear Calc 76.11, Est GFR (MDRD) Af Amer 79, Est GFR (MDRD) Non-Af 66, BUN/Creatinine Ratio 20.0, Glucose 104, Calcium 8.3 L Current Medications Acetaminophen (Tylenol) 650 mg PO Q6H PRN PRN PRN Reason: Mild Pain (0-2/10) Amiodarone HCl (Cordarone) 200 mg PO TID [facility] Last Admin: 09/26/18 05:00 Dose: 200 mg Aspirin (Aspirin, Baby) 81 mg PO DAILY@0800 [facility] Last Admin: 09/26/18 08:57 Dose: 81 mg Atorvastatin Calcium (Lipitor) 40 mg PO QHS [facility] Last Admin: 09/25/18 21:18 Dose: 40 mg Atropine Sulfate () 0.5 mg IV UD PRN PRN Reason: HR <50 bpm Carvedilol (Coreg) 6.25 mg PO BID [facility] Clopidogrel Bisulfate (Plavix) 75 mg PO DAILY [facility] Last Admin: 09/26/18 08:58 Dose: 75 mg Diazepam (Valium) 5 mg PO Q6H PRN PRN PRN Reason: BACK SPASMS/ANXIETY Digoxin (Lanoxin) 250 mcg PO DAILY [facility] Heparin Sodium (Beef Lung) (Heparin 500 Unit/5 Ml (100/Ml)) 500 unit IV UD PRN PRN Reason: HEPARIN FLUSH Sodium Chloride () 1,000 mls @ 15 mls/hr IV .Q48H [facility] Last Admin: 09/25/18 18:41 Dose: Not Given Labetalol HCl (Trandate) 5 mg IV X1 PRN PRN Reason: SBP > 160 when pulling sheath Levothyroxine Sodium (Synthroid) 150 mcg PO DAILY@0600 [facility] Last Admin: 09/26/18 05:00 Dose: 150 mcg Metoclopramide HCl (Reglan) 5 mg IV Q6H PRN PRN Reason: NAUSEA/VOMITING Morphine Sulfate () 2 mg IV Q4H PRN PRN PRN Reason: Mild back pain (0-2/10) Nitroglycerin (Nitrostat) 0.4 mg SUBLINGUAL Q5M PRN PRN Reason: CARDIAC/CHEST PAIN Rivaroxaban (Xarelto) 20 mg PO DINNER [facility] Sodium Chloride () 5 - 15 ml IV UD PRN PRN Reason: SALINE FLUSH Last Admin: 09/26/18 04:59 Dose: 10 ml Sodium Chloride () 500 ml IV BOLUS PRN PRN Reason: VASO-VAGAL PROTOCOL Spironolactone (Aldactone) 12.5 mg PO DAILY [facility] Medical Necessity - Tobacco Use Smoking Status: Former smoker Tobacco Use: Cigarettes Assessment/Plan All Active Problems (Last Updated 09/24/18 @ 14:12 by Ebony Lockhart) A-fib (Acute) Left ventricular thrombus (Acute) CHF (congestive heart failure) (Acute) Cardiomyopathy (Acute) 1. New onset A. fib/left ventricular thrombus/acute systolic heart failure likely secondary to a previous [place]/HTN/HLD -He denies any cardiac history, denies any heart attacks, denies any history of cardiac caths -Echo shows a large left ventricular thrombus with an EF of 20% -He had a stent placed to the RCA, will continue with aspirin, Plavix -Continue with Coreg twice daily, as well as amiodarone. We will decrease his Coreg dose secondary to his blood pressure issues and add digoxin -We will continue him on Lipitor -Restart Xarelto this evening -We will discontinue his Lasix secondary to his low blood pressure, and will start his Aldactone -We will hold his lisinopril completely 2. Hypothyroidism -TSH on admission was 0.23 -A follow-up T3-T4 was obtained which were both in the normal ranges -Continue with his current dose of Synthroid DVT: Xarelto Code Visit Inpatient E&M: [id number] Subs Hosp L2
[2018-09-26] MEDS: Digoxin 250 MCG Tablet PO (15:50)
[2018-09-26] MEDS: Rivaroxaban 20 MG Tablet PO (19:41)
[2018-09-26] MEDS: Carvedilol 6.25 MG Tablet PO (21:21)
[2018-09-26] MEDS: Atorvastatin Calcium 40 MG Tablet PO (21:21)
[2018-09-27] VITALS (8 sets, daily range): BP systolic 84–124; BP diastolic 64–76; PULSE 80–103; RESP 18–19; TEMP 36.6–36.7; O2SAT 98
[2018-09-27] MEDS: Levothyroxine 150 MCG Tablet PO (05:59)
[2018-09-27] MEDS: Amiodarone 200 MG Tablet PO (05:59)
[2018-09-27 06:19] LABS: Anion Gap 6 (5-15); BUN 22 mg/dL (7-18); BUN/Creat Ratio 17.9 RATIO (10-20); Calcium,Total 8.3 mg/dL (8.5-10.1); Chloride 110 mmol/L (98-107); Creatinine, Serum 1.23 mg/dL (0.70-1.30); EST Glomerular Filtration Rate 64 mL/min (>60); Est Glom Filt Rate - Afr Amer 77 mL/min (>60); Estimated Creatinine Clearance 74.25 ml/min; Glucose 102 mg/dL (74-106); Potassium 4.1 mmol/L (3.5-5.1); Sodium Level 140 mmol/L (136-145)
[2018-09-27] MEDS: Aspirin 81 MG TAB.CHEW PO (08:53)
[2018-09-27] MEDS: Spironolactone 25 MG Tablet 12.5 MG PO (08:54)
[2018-09-27] MEDS: Digoxin 250 MCG Tablet PO (08:56)
[2018-09-27] MEDS: Clopidogrel Bisulfate 75 MG Tablet PO (08:56)
[2018-09-27] MEDS: Carvedilol 6.25 MG Tablet PO (08:56)
--- NOTE | 2018-09-27 10:00 | EKG12_ITS ---
Test Reason : MORNING EKG Blood Pressure : / mmHG Vent. Rate : 075 BPM Atrial Rate : 202 BPM P-R Int : 000 ms QRS Dur : 092 ms QT Int : 414 ms P-R-T Axes : 000 050 137 degrees QTc Int : 462 ms Atrial fibrillation T wave abnormality, consider lateral ischemia or digitalis effect Prolonged QT Abnormal ECG When compared with ECG of 26-SEP-2018 05:06, MANUAL COMPARISON REQUIRED, DATA IS UNCONFIRMED Confirmed by MARCO MCKINNON, LUNA ([id number]), editor farm journal AMAYA NAJERA ([id number]) on 09/30/2018 11:25:45 AM Referred By: OZZY Confirmed By:LUNA LARA MD
--- NOTE | 2018-09-27 10:29 | PN.CARD_ITS ---
Subjectve: The patient is awake and alert. He denies ongoing chest discomfort or worsening shortness of breath or dyspnea or lightheadedness / dizziness at rest or with ambulation. He states overall he feels better now than on admission. Objective: Vital Signs Temp Pulse Resp BP Pulse Ox 98 F 96 19 H 84/64 L 98 09/27/18 09:00 09/27/18 09:00 09/27/18 09:00 09/27/18 09:00 09/27/18 09:00 Oxygen Flow Rate (L/min) 2 Oxygen Delivery Method Room Air Weight: 235 lb 10.786 oz Body Mass Index (BMI) 30.4 Intake and Output for Last 24 Hours 09/25/18 09/26/18 09/27/18 23:59 23:59 23:59 Intake Total 1140 / 1140 990 / 990 600 / 600 Output Total 1350 / 1350 1150 / 1150 400 / 400 Balance -210 / -210 -160 / -160 200 / 200 General: Awake, Alert, Oriented x 3, Cooperative, No Acute Distress HEENT: Atraumatic, Normocephalic, PERRL, EOMI, Sclera Non Icteric Oral: Moist Mucosa Neck: Supple, Good ROM, No JVD Lungs: Clear to auscultation Cardiovascular: Irregular Rhythm, Normal S1, Normal S2 Abdomen: Bowel Sounds Present, Soft, Non Tender Extremities: No edema Neurological: No Focal Motor or Sensory Deficit Psych/Mental Status: Appropriate 09/27/18 05:30: Sodium Cancelled, Potassium Cancelled, Chloride Cancelled, Carbon Dioxide Cancelled, Anion Gap Cancelled, BUN Cancelled, Creatinine Cancelled, Est GFR (MDRD) Af Amer Cancelled, Est GFR (MDRD) Non-Af Cancelled, BUN/Creatinine Ratio Cancelled, Glucose Cancelled, Calcium Cancelled 09/27/18 06:00: Sodium 140, Potassium 4.1, Chloride 110 H, Carbon Dioxide 24.0, Anion Gap 6, BUN 22 H, Creatinine 1.23, Est GFR (MDRD) Af Amer 77, Est GFR (MDRD) Non-Af 64, BUN/Creatinine Ratio 17.9, Glucose 102, Calcium 8.3 L Rhythm: Atrial fibrillation EKG: Atrial fibrillation; T wave abnormality potentially compatible with myocardial ischemia-lateral Medical Necessity - Tobacco Use Smoking Status: Former smoker Tobacco Use: Cigarettes Assessment/Plan 1. Atrial fibrillation The patient is in atrial fibrillation. Is unclear how long the patient has been in atrial fibrillation. It is also unclear whether this is contributing to her result of his underlying cardiomyopathy. At the present time the patient will continue rate control therapy. His beta-leah dose has been reduced to compensate for post medication blood pressure changes-hypotension. He has been placed on digitalis therapy. He is on amiodarone tapering dose. He remains on anticoagulant therapy. Overall his cardiac rate appears to have come under better control at rest and with ambulation. 2. CHF: Acute systolic The patient does have CHF. It appears to be acute systolic. It is unclear as to how long he has been in CHF. At the present time he will continue medical management. This will include his beta-leah therapy, diuretic therapy, and hopefully over time he will be able to tolerate reinitiation of either an LATA inhibitor or ARB or agents such as Entresto. 3. Cardiomyopathy He does have findings compatible with an underlying cardiomyopathy. It appears he has a cardiomyopathy that is out of proportion to his underlying CAD. At the present time he will continue medical management. 4. CAD He was found to have angiographically significant appearing CAD of the proximal RCA. He underwent RCA PCI. Hopefully this will help with respect to his underlying cardiovascular condition. He will continue his dual antiplatelet therapy. 5. Left ventricular apical thrombus He does have a left ventricular apical thrombus. He will continue anticoagulant therapy. 6. Hyperlipidemia He will continue lipid-lowering therapy. 7. Hypertension He will continue medical therapy as tolerated. 8. 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 He was treated medically with warfarin/Coumadin. He has had no recurrent thrombi embolic events to the best of his knowledge. Overall, the patient appears to be symptomatically improved and stable. He will continue medical therapy with adjustment as his heart rate and blood pressure, etc., allow. Over time the goal will be for continued medical therapy, follow- up echocardiographic studies to reassess his left ventricular apical thrombus status, and consideration, depending upon the left ventricular apical thrombus status, for an attempt at regaining sinus rhythm with synchronized biphasic DC cardioversion. If over time, despite all efforts, his LV systolic function does not improve then he may need to be considered for EP consultation for primary prevention ICD placement. Plan: The above was discussed with the patient and Dr. Aparicio. This note was generated using a voice recognition system and there may be incorrect words, spelling or punctuation that were not noted when reviewing the office note prior to saving.
--- NOTE | 2018-09-27 11:00 | NURSING ---
ambulated in [place] with nurse hr maintained in low 100's bp 124/76, no distress with activity, Dr Dukes informed of outcome will discharge ,follow -up in office appointment October@ 3pm
--- NOTE | 2018-09-27 11:10 | DCINST_ITS ---
- Discharge Diagnoses Current Active Problems: Current Active and Chronic Problems (Last Updated 09/24/18 @ 14:12 by Ebony Lockhart) Hypothyroidism (Chronic) A-fib (Acute) Left ventricular thrombus (Acute) History of venous thromboembolism (Chronic) HTN (hypertension) (Chronic) HLD (hyperlipidemia) (Chronic) CHF (congestive heart failure) (Acute) History of pulmonary embolism (Chronic) Cardiomyopathy (Acute) You will use the following diet at home:: Cardiac Your food should be the consistency of: Regular Your liquids should be the consistency of: Regular/Thin Discharge Activity: Return to Normal Activity Call your doctor if you observe: Fever of 101 or Higher, Shortness of breath, Dizziness, Fainting spells, Swelling in the ankles, Chest pain, Increased palpitations (irregular heartbeat) Allergies/Adverse Reactions: Allergies Penicillins Allergy (Verified 09/22/18 09:50) Unknown Medications to take at Discharge Aspirin 81 mg PO DAILY 09/22/18 Levothyroxine [Synthroid] 150 mcg PO DAILY 09/22/18 Simvastatin [Zocor] 40 mg PO QHS 09/22/18 Amiodarone HCl [Cordarone] 200 mg PO BID #28 tablet 09/27/18 Amiodarone HCl [Cordarone] 200 mg PO DAILY #30 tablet 09/27/18 Amiodarone HCl [Cordarone] 200 mg PO TID #21 tablet 09/27/18 Carvedilol [Coreg (Beta Jaret)] 6.25 mg PO BID #60 tablet 09/27/18 Clopidogrel Bisulfate [Plavix] 75 mg PO DAILY #30 tablet 09/27/18 Digoxin [Lanoxin] 250 mcg PO DAILY #30 tablet 09/27/18 Rivaroxaban [Xarelto] 20 mg PO DINNER #30 tablet 09/27/18 Spironolactone [Aldactone] 12.5 mg PO DAILY #30 tablet 09/27/18 The following prescriptions were given: Amiodarone HCl [Cordarone] 200 mg PO DAILY #30 tablet Clopidogrel Bisulfate [Plavix] 75 mg PO DAILY #30 tablet Digoxin [Lanoxin] 250 mcg PO DAILY #30 tablet Rivaroxaban [Xarelto] 20 mg PO DINNER #30 tablet Spironolactone [Aldactone] 12.5 mg PO DAILY #30 tablet Amiodarone HCl [Cordarone] 200 mg PO BID #28 tablet Carvedilol [Coreg (Beta Jaret)] 6.25 mg PO BID #60 tablet Amiodarone HCl [Cordarone] 200 mg PO TID #21 tablet Primary Care Physician: Kareem Mai MD [Primary Care Provider] - Please follow up with your Primary Care Physician in: 3-5 days Test Results: Test results from this visit will be discussed in further detail at your follow- up appointment, if applicable. Please Follow Up With: Alex Dukes MD
--- NOTE | 2018-09-27 11:19 | PCM.DC.SUM ---
Discharge Date and Diagnosis - Problem List Patient Problems: Active and Suspected Problems (Last Updated 09/24/18 @ 14:12 by Ebony Lockhart) A-fib (Acute) Left ventricular thrombus (Acute) CHF (congestive heart failure) (Acute) Cardiomyopathy (Acute) Date of Admission: 09/22/18 Date of Discharge: 09/27/18 - Primary Discharge Diagnosis Active and Suspected Problems (Last Updated 09/24/18 @ 14:12 by Ebony Lockhart) A-fib (Acute) Left ventricular thrombus (Acute) CHF (congestive heart failure) (Acute) Cardiomyopathy (Acute) - Secondary Discharge Diagnosis Chronic Problems (Last Updated 09/24/18 @ 14:12 by Ebony Lockhart) Atherosclerotic heart disease of [place] coronary artery without angina pectoris (Chronic) 3.0 X 28 mm Synergy CUONG to proximal RCA per [facility] @ [facility] 09/24/2018 Stented coronary artery (Chronic 09/24/18) 3.0 X 28 mm Synergy CUONG to proximal RCA per [facility] @ [facility] 09/24/2018 Hypothyroidism (Chronic) History of venous thromboembolism (Chronic) HTN (hypertension) (Chronic) HLD (hyperlipidemia) (Chronic) History of pulmonary embolism (Chronic) Hospital Course and Treatment Imaging Results: cxr: IMPRESSION: Myocardial megaly. Findings suggestive of a mild degree of CHF. Consults: Cardiology Operations: None Procedures: 2-D Echocardiogram - Interpretation Summary Mildly dilated left ventricle. Mild concentric left ventricular hypertrophy. The estimated ejection fraction is 20 %. Severe global left ventricular systolic dysfunction. Thrombus measuring 1.4 by 1.4 cm in apex, Cardiac catheterization - CONCLUSIONS [place] Multivessel CAD RECOMMENDATIONS Risk factor modification Medical therapy Referred for immediate PCI Summary of Care Provided: Per HPI: The patient is a 58 year old M with PMH as below who presents after going to his PCPs office for a follow-up of his pneumonia and no resolution of the of his upper respiratory infection/? recurrent pneumonia. In his PCPs office he was found to be tachycardic and they performed an EKG which showed he was in A. fib. They recommended that he present to the ER. In the ER he was found to be in A. fib with a normal chest x-ray that showed mild cardiomegaly as well as bilateral small pleural effusions. He was admitted for further evaluation of his A. fib. In the ER troponin was 0.024, and he was started on Cardizem. He states that he first started feeling short of breath with an upper respiratory infection about 6 months ago and it has not gotten any better. He has undergone multiple treatments with antibiotics as well as nasal sprays for relief, which did not work. He states that he has shortness of breath when he lays down for sleep and because he has difficulty sleeping he has been feeling fatigued. He denies any chest pain, lightheadedness, dizziness, or palpitations. And he does not recall any recent episodes of chest pain or shortness of breath 6 months ago. Hospital Course: 1. New onset A. fib/left ventricular thrombus/acute systolic heart failure likely secondary to previous CT/HTN/EWZ-11-mbyr-old male who had been having upper respiratory infection-like symptoms for the last several months and not feeling well, had presented to his PCPs for his second course of antibiotics for possible pneumonia when he was found to be tachycardic. They did an EKG which showed A. fib. He presented to the hospital and had an echocardiogram demonstrating a left ventricular thrombus and therefore went for cardiac catheterization to evaluate any ischemic risk. Unfortunately there is no left-sided coronary artery disease that could explain a thrombus, however he did have RCA stenosis and had a stent placed. His EF on the echo was 20%. He was transferred to the ICU after the cardiac cath and was started on multiple medications to help control his heart rate from his A. fib as well as to treat his ventricular thrombus. 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 Also he was started on Coreg, Lasix, and continued on his home lisinopril however he still remained tachycardic and was started on amiodarone. Unfortunately he started having episodes of hypertension though he was asymptomatic and multiple dosing changes and medication changes were made. He was ultimately discharged on amiodarone taper as well as Coreg 6.25 mg twice daily, Aldactone 12.5 mg daily, and digoxin. Also because he had coronary artery disease he was continued on his home aspirin and Plavix was added to that regimen, at this time it is necessary for both antiplatelets as well as Xarelto. He will need to follow-up with cardiology in the next several weeks. In terms of his blood pressure, systolic after his medication dose and has been in the 80s, however his mean arterial pressures were in the high 60s and he is asymptomatic, on the day of discharge she was ambulated and his blood pressure did respond appropriately to ambulation and his heart rate maintained relative control less than 120, and therefore it was deemed safe for discharge. 2. Hypothyroidism-initially on admission his TSH was 0.23, and a T3-T4 was obtained which were normal therefore no changes were made to his Synthroid dose however I do recommend that he follow-up with his primary care physician. This was discussed in detail with him and he expressed understanding and agreed to the plan. Patient Problems: Active and Suspected Problems (Last Updated 09/24/18 @ 14:12 by Ebony Lockhart) A-fib (Acute) Left ventricular thrombus (Acute) CHF (congestive heart failure) (Acute) Cardiomyopathy (Acute) Objective: General: Alert, Oriented x3, Cooperative, No apparent distress HEENT: Atraumatic, PERRLA, EOMI, Normocephalic Oral: Moist Mucosa Neck: Supple, No JVD Lungs: Clear to auscultation, Normal air movement, No rhonchi, No wheeze, No rales, Diminished Cardiovascular: No murmurs, Tachycardic, - - Irregular rhythm Abdomen: Soft, Non Tender, Non-Distended, No Hepato-splenomegaly Extremities: No edema, Capillary Refill Less than 3 Seconds Skin: No rashes, No breakdown Neurological: Neuro grossly intact, Sensory exam intact to light touch and pain Psych/Mental Status: Normal Affect, Appropriate - Physical Exam Vital Signs Temp Pulse Resp BP Pulse Ox 98 F 94 19 H 84/64 L 98 09/27/18 09:00 09/27/18 10:00 09/27/18 09:00 09/27/18 09:00 09/27/18 09:00 Oxygen Flow Rate (L/min) 2 Oxygen Delivery Method Room Air Weight: 235 lb 10.786 oz Body Mass Index (BMI) 30.4 Intake and Output for Last 24 Hours 09/25/18 09/26/18 09/27/18 23:59 23:59 23:59 Intake Total 1140 / 1140 990 / 990 600 / 600 Output Total 1350 / 1350 1150 / 1150 400 / 400 Balance -210 / -210 -160 / -160 200 / 200 Laboratory Tests Past 24 Hrs 09/27/18 09/27/18 05:30 06:00 Sodium Cancelled 140 Potassium Cancelled 4.1 Chloride Cancelled 110 H Carbon Dioxide Cancelled 24.0 Anion Gap Cancelled 6 BUN Cancelled 22 H Creatinine Cancelled 1.23 Estim Creat Clear Calc Cancelled 74.25 Est GFR (MDRD) Af Amer Cancelled 77 Est GFR (MDRD) Non-Af Cancelled 64 BUN/Creatinine Ratio Cancelled 17.9 Glucose Cancelled 102 Calcium Cancelled 8.3 L Discharge Activity: Return to Normal Activity Call your doctor if you observe: Fever of 101 or Higher, Shortness of breath, Dizziness, Fainting spells, Swelling in the ankles, Chest pain, Increased palpitations (irregular heartbeat) Home Medications: Medications to take at Discharge Aspirin 81 mg PO DAILY 09/22/18 Levothyroxine [Synthroid] 150 mcg PO DAILY 09/22/18 Simvastatin [Zocor] 40 mg PO QHS 09/22/18 Amiodarone HCl [Cordarone] 200 mg PO BID #28 tablet 09/27/18 Amiodarone HCl [Cordarone] 200 mg PO DAILY #30 tablet 09/27/18 Amiodarone HCl [Cordarone] 200 mg PO TID #21 tablet 09/27/18 Carvedilol [Coreg (Beta Jaret)] 6.25 mg PO BID #60 tablet 09/27/18 Clopidogrel Bisulfate [Plavix] 75 mg PO DAILY #30 tablet 09/27/18 Digoxin [Lanoxin] 250 mcg PO DAILY #30 tablet 09/27/18 Rivaroxaban [Xarelto] 20 mg PO DINNER #30 tablet 09/27/18 Spironolactone [Aldactone] 12.5 mg PO DAILY #30 tablet 09/27/18 Following Prescrptions Were Given to Patient: Amiodarone HCl [Cordarone] 200 mg PO DAILY #30 tablet Clopidogrel Bisulfate [Plavix] 75 mg PO DAILY #30 tablet Digoxin [Lanoxin] 250 mcg PO DAILY #30 tablet Rivaroxaban [Xarelto] 20 mg PO DINNER #30 tablet Spironolactone [Aldactone] 12.5 mg PO DAILY #30 tablet Amiodarone HCl [Cordarone] 200 mg PO BID #28 tablet Carvedilol [Coreg (Beta Jaret)] 6.25 mg PO BID #60 tablet Amiodarone HCl [Cordarone] 200 mg PO TID #21 tablet Primary Care Physician: Kareem Mai MD [Primary Care Provider] - Please follow up with your Primary Care Physician in: 3-5 days Please Follow Up With: Alex Dukes MD Disposition: Home Minutes spent on discharge:: 35 Patient Condition:: Good Medical Necessity - Tobacco Use Smoking Status: Former smoker Tobacco Use: Cigarettes Meaningful Use Info Meaningful Use Diagnoses (Choose all that apply): CHF - CHF LATA/ARB ordered at discharge?: No Reason LATA/ARB not ordered?: Hypotension Documented LVEF (%): 20 Code Visit Inpatient E&M: 52446 Disch Hosp
--- NOTE | 2018-09-27 11:32 | DS.PCM_ITS ---
Discharge Date and Diagnosis - Problem List Patient Problems: Active and Suspected Problems (Last Updated 09/24/18 @ 14:12 by Ebony Lockhart) A-fib (Acute) Left ventricular thrombus (Acute) CHF (congestive heart failure) (Acute) Cardiomyopathy (Acute) Date of Admission: 09/22/18 Date of Discharge: 09/27/18 - Primary Discharge Diagnosis Active and Suspected Problems (Last Updated 09/24/18 @ 14:12 by Ebony Lockhart) A-fib (Acute) Left ventricular thrombus (Acute) CHF (congestive heart failure) (Acute) Cardiomyopathy (Acute) - Secondary Discharge Diagnosis Chronic Problems (Last Updated 09/24/18 @ 14:12 by Ebony Lockhart) Atherosclerotic heart disease of [place] coronary artery without angina pectoris (Chronic) 3.0 X 28 mm Synergy CUONG to proximal RCA per [facility] @ [facility] 09/24/2018 Stented coronary artery (Chronic 09/24/18) 3.0 X 28 mm Synergy CUONG to proximal RCA per [facility] @ [facility] 09/24/2018 Hypothyroidism (Chronic) History of venous thromboembolism (Chronic) HTN (hypertension) (Chronic) HLD (hyperlipidemia) (Chronic) History of pulmonary embolism (Chronic) Hospital Course and Treatment Imaging Results: cxr: IMPRESSION: Myocardial megaly. Findings suggestive of a mild degree of CHF. Consults: Cardiology Operations: None Procedures: 2-D Echocardiogram - Interpretation Summary Mildly dilated left ventricle. Mild concentric left ventricular hypertrophy. The estimated ejection fraction is 20 %. Severe global left ventricular systolic dysfunction. Thrombus measuring 1.4 by 1.4 cm in apex, Cardiac catheterization - CONCLUSIONS [place] Multivessel CAD RECOMMENDATIONS Risk factor modification Medical therapy Referred for immediate PCI Summary of Care Provided: Per HPI: The patient is a 58 year old M with PMH as below who presents after going to his PCPs office for a follow-up of his pneumonia and no resolution of the of his upper respiratory infection/? recurrent pneumonia. In his PCPs office he was found to be tachycardic and they performed an EKG which showed he was in A. fib. They recommended that he present to the ER. In the ER he was found to be in A. fib with a normal chest x-ray that showed mild cardiomegaly as well as bilateral small pleural effusions. He was admitted for further evaluation of his A. fib. In the ER troponin was 0.024, and he was started on Cardizem. He states that he first started feeling short of breath with an upper respiratory infection about 6 months ago and it has not gotten any better. He has undergone multiple treatments with antibiotics as well as nasal sprays for relief, which did not work. He states that he has shortness of breath when he lays down for sleep and because he has difficulty sleeping he has been feeling fatigued. He denies any chest pain, lightheadedness, dizziness, or palpitations. And he does not recall any recent episodes of chest pain or shortness of breath 6 months ago. Hospital Course: 1. New onset A. fib/left ventricular thrombus/acute systolic heart failure likely secondary to previous TX/HTN/CVO-63-jduy-old male who had been having upper respiratory infection-like symptoms for the last several months and not feeling well, had presented to his PCPs for his second course of antibiotics for possible pneumonia when he was found to be tachycardic. They did an EKG which showed A. fib. He presented to the hospital and had an echocardiogram demonstrating a left ventricular thrombus and therefore went for cardiac catheterization to evaluate any ischemic risk. Unfortunately there is no left- sided coronary artery disease that could explain a thrombus, however he did have RCA stenosis and had a stent placed. His EF on the echo was 20%. He was transferred to the ICU after the cardiac cath and was started on multiple medications to help control his heart rate from his A. fib as well as to treat his ventricular thrombus. 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 Also he was started on Coreg, Lasix, and continued on his home lisinopril however he still remained tachycardic and was started on amiodarone. Unfortunately he started having episodes of hypertension though he was asymptomatic and multiple dosing changes and medication changes were made. He was ultimately discharged on amiodarone taper as well as Coreg 6.25 mg twice daily, Aldactone 12.5 mg daily, and digoxin. Also because he had coronary artery disease he was continued on his home aspirin and Plavix was added to that regimen, at this time it is necessary for both antiplatelets as well as Xarelto. He will need to follow-up with cardiology in the next several weeks. In terms of his blood pressure, systolic after his medication dose and has been in the 80s, however his mean arterial pressures were in the high 60s and he is asymptomatic, on the day of discharge she was ambulated and his blood pressure did respond appropriately to ambulation and his heart rate maintained relative control less than 120, and therefore it was deemed safe for discharge. 2. Hypothyroidism-initially on admission his TSH was 0.23, and a T3-T4 was obtained which were normal therefore no changes were made to his Synthroid dose however I do recommend that he follow-up with his primary care physician. This was discussed in detail with him and he expressed understanding and agreed to the plan. Patient Problems: Active and Suspected Problems (Last Updated 09/24/18 @ 14:12 by Ebony Lockhart) A-fib (Acute) Left ventricular thrombus (Acute) CHF (congestive heart failure) (Acute) Cardiomyopathy (Acute) Objective: General: Alert, Oriented x3, Cooperative, No apparent distress HEENT: Atraumatic, PERRLA, EOMI, Normocephalic Oral: Moist Mucosa Neck: Supple, No JVD Lungs: Clear to auscultation, Normal air movement, No rhonchi, No wheeze, No rales, Diminished Cardiovascular: No murmurs, Tachycardic, - - Irregular rhythm Abdomen: Soft, Non Tender, Non-Distended, No Hepato-splenomegaly Extremities: No edema, Capillary Refill Less than 3 Seconds Skin: No rashes, No breakdown Neurological: Neuro grossly intact, Sensory exam intact to light touch and pain Psych/Mental Status: Normal Affect, Appropriate - Physical Exam Vital Signs Temp Pulse Resp BP Pulse Ox 98 F 94 19 H 84/64 L 98 09/27/18 09:00 09/27/18 10:00 09/27/18 09:00 09/27/18 09:00 09/27/18 09:00 Oxygen Flow Rate (L/min) 2 Oxygen Delivery Method Room Air Weight: 235 lb 10.786 oz Body Mass Index (BMI) 30.4 Intake and Output for Last 24 Hours 09/25/18 09/26/18 09/27/18 23:59 23:59 23:59 Intake Total 1140 / 1140 990 / 990 600 / 600 Output Total 1350 / 1350 1150 / 1150 400 / 400 Balance -210 / -210 -160 / -160 200 / 200 Laboratory Tests Past 24 Hrs 09/27/18 09/27/18 05:30 06:00 Sodium Cancelled 140 Potassium Cancelled 4.1 Chloride Cancelled 110 H Carbon Dioxide Cancelled 24.0 Anion Gap Cancelled 6 BUN Cancelled 22 H Creatinine Cancelled 1.23 Estim Creat Clear Calc Cancelled 74.25 Est GFR (MDRD) Af Amer Cancelled 77 Est GFR (MDRD) Non-Af Cancelled 64 BUN/Creatinine Ratio Cancelled 17.9 Glucose Cancelled 102 Calcium Cancelled 8.3 L Discharge Activity: Return to Normal Activity Call your doctor if you observe: Fever of 101 or Higher, Shortness of breath, Dizziness, Fainting spells, Swelling in the ankles, Chest pain, Increased palpitations (irregular heartbeat) Home Medications: Medications to take at Discharge Aspirin 81 mg PO DAILY 09/22/18 Levothyroxine [Synthroid] 150 mcg PO DAILY 09/22/18 Simvastatin [Zocor] 40 mg PO QHS 09/22/18 Amiodarone HCl [Cordarone] 200 mg PO BID #28 tablet 09/27/18 Amiodarone HCl [Cordarone] 200 mg PO DAILY #30 tablet 09/27/18 Amiodarone HCl [Cordarone] 200 mg PO TID #21 tablet 09/27/18 Carvedilol [Coreg (Beta Jaret)] 6.25 mg PO BID #60 tablet 09/27/18 Clopidogrel Bisulfate [Plavix] 75 mg PO DAILY #30 tablet 09/27/18 Digoxin [Lanoxin] 250 mcg PO DAILY #30 tablet 09/27/18 Rivaroxaban [Xarelto] 20 mg PO DINNER #30 tablet 09/27/18 Spironolactone [Aldactone] 12.5 mg PO DAILY #30 tablet 09/27/18 Following Prescrptions Were Given to Patient: Amiodarone HCl [Cordarone] 200 mg PO DAILY #30 tablet Clopidogrel Bisulfate [Plavix] 75 mg PO DAILY #30 tablet Digoxin [Lanoxin] 250 mcg PO DAILY #30 tablet Rivaroxaban [Xarelto] 20 mg PO DINNER #30 tablet Spironolactone [Aldactone] 12.5 mg PO DAILY #30 tablet Amiodarone HCl [Cordarone] 200 mg PO BID #28 tablet Carvedilol [Coreg (Beta Jaret)] 6.25 mg PO BID #60 tablet Amiodarone HCl [Cordarone] 200 mg PO TID #21 tablet Primary Care Physician: Kareem Mai MD [Primary Care Provider] - Please follow up with your Primary Care Physician in: 3-5 days Please Follow Up With: Alex Dukes MD Disposition: Home Minutes spent on discharge:: 35 Patient Condition:: Good Medical Necessity - Tobacco Use Smoking Status: Former smoker Tobacco Use: Cigarettes Meaningful Use Info Meaningful Use Diagnoses (Choose all that apply): CHF - CHF LATA/ARB ordered at discharge?: No Reason LATA/ARB not ordered?: Hypotension Documented LVEF (%): 20 Code Visit Inpatient E&M: 03648 Disch Hosp
== END 2018-09-27 12:20 | disposition home or self-care (01) | DRG 246 ==
LOC: ED 10:34 → PCU 12:05 → ICU 09-25 07:54
PROVIDERS: Internal Medicine Cardiovascular Disease; Admitting Provider Family Medicine; Emergency Provider Emergency Medicine; Family Provider Family Medicine; PCP Family Medicine; Visit Provider Family Medicine
DX: I48.91 Unspecified atrial fibrillation (principal); I50.21 Acute systolic (congestive) heart failure; E03.9 Hypothyroidism, unspecified; I42.9 Cardiomyopathy, unspecified; I11.0 Hypertensive heart disease with heart failure; E78.5 Hyperlipidemia, unspecified; I51.3 Intracardiac thrombosis, not elsewhere classified; I25.10 Atherosclerotic heart disease of native coronary artery without angina pectoris; Z86.718 Personal history of other venous thrombosis and embolism; Z86.711 Personal history of pulmonary embolism; Z87.891 Personal history of nicotine dependence
CPT/HCPCS: 36415; 71045; 80048; 84436; 84443; 84480; 84484; 85025; 85027; 85347; 85610; 85730; 92928; 93005; 93306; 93454; 99152; 99153; 99285; C1760; J7030; Q9957; A4216; C1725; C1769; C1874; C1887; C1894; C8929; C9600; J1940; Q9967

== ENCOUNTER 2018-10-13 14:53 | Inpatient (IN) | payer OTHER, SELFPAY ==
[2018-09-22 12:27] VITALS: BMI 30.4
[2018-09-24 14:03] VITALS: BMI 29.0
[2018-10-13] VITALS (17 sets, daily range): BP systolic 107–146; BP diastolic 76–113; PULSE 51–83; RESP 12–20; TEMP 35.8–36.3; O2SAT 98–100; BMI 33.0; BMI 32.3; BMI 32.4
[2018-10-13] MEDS: Heparin Injection (Vial) 5,000 UNIT/ML VIAL 4000 UNIT IV (15:07)
--- NOTE | 2018-10-13 15:11 | CT_ITS ---
STUDY: CTA CHEST REASON FOR EXAM: Male, 58 years old. Post CPR RADIATION DOSAGE (If Supplied By Facility): CTDIvol = ( 16.02 ) mGy, DLP = ( 603.92 ) mGycm TECHNIQUE: The examination was performed with the intravenous administration of 100 IV Isovue 370. Post-processing of the angiographic images was performed, with multiplanar reformation and 3D reconstruction. Individualized dose optimization techniques were used for this CT. COMPARISON: None. FINDINGS: Normal enhancement of the main pulmonary artery and right and left pulmonary arteries. Normal enhancement of the bilateral peripheral pulmonary arteries. There is no demonstrated pulmonary embolism. Normal thoracic aorta and visualized great vessels. There is no demonstrated aortic dissection. There is mild cardiomegaly. There are scattered nonpathologically enlarged mediastinal nodes. Normal hilar regions. Normal visualized trachea and bronchi. The lungs are well expanded. There is gravity dependent atelectasis and/or blood pooling of the posterior upper and lower lobes. Normal pleura. Normal chest wall structures. There are degenerative changes of the thoracic spine. Normal visualized upper abdomen. CT/CTA Chest W/WO Contrast IMPRESSION: 1. Normal CTA chest examination, without a demonstrated pulmonary embolism or arterial dissection. 2. Cardiomegaly. 3. There is gravity dependent atelectasis and/or blood pooling in the posterior upper and lower lobes. 4. Degenerative changes of the thoracic spine. Electronically Signed: Martin Zhao MD at 16:50 EDT , Service support ,
[2018-10-13] MEDS: 0.9% Normal Saline 1,000 ML 150 ML IV ×2 (15:12→21:48)
[2018-10-13] MEDS: TICAGRELOR 90 MG TABLET 180 MG PO (15:13)
[2018-10-13] MEDS: Aspirin 81 MG TAB.CHEW 324 MG PO (15:13)
--- NOTE | 2018-10-13 15:30 | RAD_ITS ---
STUDY: X-RAY CHEST REASON FOR EXAM: Male, 58 years old. Post catheter lab TECHNIQUE: Single AP portable view of the chest. COMPARISON: 09/22/2018 FINDINGS: child monitor leads are present. The lungs are clear and expanded. There is no demonstrated pleural abnormality. There is mild cardiac enlargement. Normal mediastinum and sina. Normal visualized pulmonary arteries. Normal visualized aortic arch and descending thoracic aorta. Normal visualized thoracic spine. Normal visualized ribs, clavicles, and shoulders. There is no demonstrated abnormality of the visualized soft tissue structures of the upper abdomen. RAD/Chest 1 View (Portable) IMPRESSION: Mild cardiomegaly. No acute cardiopulmonary disease process is seen. Electronically Signed: Martin Zhao MD at 16:06 EDT , Service support ,
[2018-10-13 15:31] LABS: ACT Activated Clotting Time 213 sec (74-137)
--- NOTE | 2018-10-13 15:40 | CL.D_ITS ---
Patient Name: ARLETH YI Study Date: 10/13/2018 Performing: Dionisio Ndiaye MD Ht: inches cm : 1960 Wt: lbs kg Age: 58 Gender: male BSA: PROCEDURE(S) PERFORMED IY86-HVO/COR/LV CLINICAL PROFILE AND INDICATIONS Patient presents with STEMI for emergent cardiac cath. Indications: Stable Known CAD, Cardiac Arrythmia, Cardiomyopathy, LV Dysfunction Heart Failure: NYHA Class: 1, Newly Diagnosed: Yes, Heart Failure Type: Systolic Stress/Imaging Stress/Image Study Performed: No Angina Classification Anginal Classification w/in 2 Weeks: No symptoms CAD Presentations: Other: Vfib arrest with recent PCI of RCA on 09/24/2018 Comorbidities/Risk Factors: Hypertension Dyslipidemia Prior PCI Prior CHF CONCLUSIONS Global LV systolic dysfunction- Severe LVEF: by LV gram 10-15 % Depressed Left Ventricular systolic function - Severe Elevated Left Ventricular End Diastolic Pressure Non obstructive coronary arteries Widely patent RCA stent with minimal plaque protrusion from recent PCI to RCA on 09/24/2018. RECOMMENDATIONS Plavix for at least 12 months Management as per referring Registered Representative Plavix for at least 12 months Emergent CTA for Pulmonary embolus as well as head CT to eval for CVA. Will hold on sheath removal at least 24 hours until we can confirm if pt was taking xeralto. Pt too thin for Mynx closure. Would not pursue any additional PCI of non obstructive plaque protrusion. DESCRIPTION OF PROCEDURE The patient arrived to the procedure lab. The risks and benefits of the procedure as well as a full d escription of our services here and current unavailability of surgical backup were fully explained to the patient and/or their significant other prior to the catheterization. The Timeout was completed, verifying the correct patient and procedure. The patient's procedural site was prepped and draped in the usual fashion. Local anesthetic was given subcutaneously to right groin region with Lidocaine 2%. Using a modified Seldinger technique, arterial access was obtained via the right femoral artery, a 6 Fr sheath was inserted. Right Coronary Artery selective angiography was then performed in multiple v iews using a 4 Fr. 3DRC catheter. Left Ventriculography was performed in LEAL projection using a 4 Fr. Pigtail catheter.The arterial sheath was sutured in place and capped CORONARY ANGIOGRAPHY DOMINANCE: Right Dominant LEFT HEART ASSESSMENT Left Ventricular Ejection Fraction: by LV Gram 10-15 % Global Hypokinesis - Severe Depressed Left Ventricular systolic function LVEDP: 23 mmHg Cardiomyopathy: Congestive LEFT MAIN: Angiographically normal LEFT ANTERIOR DESCENDING ARTERY: PROX LAD: Mild luminal irregularities less than 30% CIRCUMFLEX ARTERY: Mild luminal irregularities less than 30% RIGHT CORONARY ARTERY: PROX RCA: Previously placed stent has an instent 20 % , no appreciable difference from end of case on 09/24/2018. COMPLICATIONS No Complications PROCEDURE MEDICATIONS Oxygen: 100 % FiO2 via non-rebreather mask Lasix 40 mg IV 10/13/2018 15:12:09 IV Bolus: .9 NaCl 150 ml total 10/13/2018 15:07:16 SUMMARY OF HEMODYNAMIC DATA Time AIR REST ECG 15:01:52 AO 137/109 (121) SA 15:07:21 LV 156/-2, 25 15:10:06 LV 154/-1, 23 15:10:12 LVp 155/-4, 22 15:10:16 AOp 154/107 (124) 15:10:21 Signed By Dionisio Ndiaye MD On 10/13/2018 15:39:03 Dionisio Ndiaye MD
--- NOTE | 2018-10-13 15:42 | CT_ITS ---
We are attempting to reach an attending provider to discuss findings. An addendum with communication details will be sent when the communication is complete. STUDY: CT BRAIN WITHOUT CONTRAST REASON FOR EXAM: Male, 58 years old. Post CPR RADIATION DOSAGE (If Supplied By Facility): CTDIvol = ( 44.99 ) mGy, DLP = ( 846.73 ) mGycm TECHNIQUE: Transaxial CT imaging of the brain was performed without administration of intravenous contrast material. Individualized dose optimization techniques were used for this CT. COMPARISON: No relevant priors. FINDINGS: Normal soft tissue structures. Normal calvarium. The lateral ventricles are normal in size and are symmetric. The third and fourth ventricles are midline. There is a questionable dense MCA sign bilaterally. Normal white matter tracts of the cerebral hemispheres. Normal basal ganglia and thalami. Normal brainstem. Normal cerebellum. There is no intracranial hemorrhage. There are no findings of an acute ischemic infarction. There is mucosal thickening of the left and right frontal, maxillary, and sphenoid sinuses bilaterally, as well as multiple ethmoid air cells bilaterally. CT/Brain/Head without Contrast IMPRESSION: Questionable dense MCA sign bilaterally which may be indicative of bilateral MCA thrombus. Chronic pansinusitis. Electronically Signed: Martin Zhao MD at 16:37 EDT , Service support ,
[2018-10-13 16:13] LABS: Absolute Lymphocyte Count 3.07 X10^3/ul (0.83-4.51); Absolute Neutrophil Count 3.8 X10^3/uL (2.0-7.7); Basophil# 0.05 X10^3/uL; Basophil% 0.6 % (0-1); Eosinophil# 0.43 X10^3/uL; Eosinophils% 5.4 % (0-5); Hematocrit 52.7 % (40-54); Hemoglobin 17.5 g/dl (13.0-16.5); Lymphocyte # 3.07 X10^3/ul (4.0); Lymphocyte % 38.3 % (19-41); Mean Corp Hgb Conc 33.2 g/gl (32-36); Mean Corpuscular Hgb 29.2 pg (27.0-32.0); Monocyte# 0.58 X10^3/uL; Monocyte% 7.2 % (0-10); Neutrophil # 3.82 X10^3/uL (2.7-7.7); Neutrophil % 47.6 % (47-70); Platelet Count 186 K/mm3 (150-450); RBC Distribution Width CV 13.7 % (11.6-14.6); RBC Distribution Width SD 44.3 fl (35.1-43.9); Red Blood Count 5.99 M/mm3 (4.6-6.2)
[2018-10-13 16:19] LABS: Anion Gap 10 (5-15); BUN 15 mg/dL (7-18); BUN/Creat Ratio 9.6 RATIO (10-20); Calcium,Total 9.2 mg/dL (8.5-10.1); Chloride 103 mmol/L (98-107); Creatinine, Serum 1.56 mg/dL (0.70-1.30); EST Glomerular Filtration Rate 48 mL/min (>60); Est Glom Filt Rate - Afr Amer 59 mL/min (>60); Estimated Creatinine Clearance 51.99 ml/min; Glucose 114 mg/dL (74-106); Potassium 4.2 mmol/L (3.5-5.1); Sodium Level 137 mmol/L (136-145)
[2018-10-13 16:21] LABS: POSITIVE COUNT NO; POSITIVE DIFFERENTIAL NO; POSITIVE MORPHOLOGY NO
--- NOTE | 2018-10-13 16:26 | ED.VISSUMM ---
- ER Visit Summary Date of Service: 10/13/18 Chief Complaint: Cardiac arrest History of Present Illness: The patient is a 58 M brought in by paramedics. Patient reported became unresponsive in a car wash. Bystander CPR was started. First medic on scene reported V. fib and patient was shocked x1. He got a perfusing rhythm after that first shock. While in route to the hospital he developed V. tach and was shocked at 100 J. He arrives in sinus tach with a heart rate of 107. Patient is awake and answering questions on arrival. He denied any significant past medical history to me or any history of heart problems. STEMI alert was called when the prehospital EKG revealed mild ST elevation in V1, V2, and V3. I spoke with Dr. Ndiaye prior to the patient arriving in the emergency room. He asked that the patient be given aspirin, Brilinta, and heparin and taken emergently to the Change Management Consult[facility]. Physical Examination: Patient lying on EMS cot. He appears slightly pale. He is alert and answers questions. Heart is slightly tachycardic and regular. Lung sounds are grossly clear. Abdomen is soft and nontender. Patient does repeat questions and that he keeps asking what happened. He does not remember the episode from today. Test Results: [] Emergency Department Course and Treatment: Prehospital EKG had showed mild ST elevation in the anterior leads. Patient was taken emergently to the Change Management Consultant and care turned over to Change Management Consultant staff. I spoke with hospitalist. Treatment Plan: [] Disposition: Admit Impression: 1. V. fib arrest 2. V. tach 3. Anterior STEMI This note was generated with [employer] dictation software. It may contain incorrect words, spelling, and punctuation that were not noted in review of the chart prior to signing ED Disposition - Plan for ED Patient: Disposition: Acute Care [facility]
[2018-10-13 16:35] LABS: International Normalized Ratio 1.5; Prothrombin Time (Protime)PT. 17.7 SECONDS (11.7-14.9)
[2018-10-13 16:52] LABS: Partial Thromboplast Time 69.6 Seconds (24.1-36.2)
--- NOTE | 2018-10-13 16:54 | CT_ITS ---
STUDY: CTA OF THE BRAIN REASON FOR EXAM: Male, 58 years old. Confusion RADIATION DOSAGE (If Supplied By Facility): CTDIvol = ( 30.92 ) mGy, DLP = ( 913.00 ) mGycm TECHNIQUE: CT angiography was performed with a multi-detector CT scanner. Data acquisition was obtained from the skull base through the vertex following intravenous administration of 100CC IV Isovue 370. MIP images were reconstructed from the axial data set. Post-processing of the angiographic images was performed, with multiplanar reformation and 3D reconstruction. Individualized dose optimization techniques were used for this CT. COMPARISON: CT of the brain on October 13, 2018 FINDINGS: Normal bilateral petrous carotid arteries. Minor calcific plaquing of the right cavernous carotid artery with a normal supraclinoid bifurcation. Minor calcific plaquing of the left cavernous carotid artery with a normal supraclinoid bifurcation. Normal right A1 segments of the anterior cerebral artery. Normal left A1 segments of the anterior cerebral artery. Normal intact anterior communicating artery (ACOM). Normal bilateral A2 segments of the anterior cerebral arteries. Normal right M1 and M2 segments of the middle cerebral arteries, with a normal M1 bifurcation. Normal left M1 and M2 segments of the middle cerebral arteries, with a normal M1 bifurcation. Posterior communicating arteries are not visualized consistent with normal variant Normal bilateral vertebral arteries. Normal basilar artery with a normal basilar bifurcation. The visualized bilateral superior cerebellar (SCA) arteries are normal. Normal bilateral P1, P2 and visualized P3 segments of the posterior cerebral arteries. There is no demonstrated aneurysm of the [place] of [place]. There is no demonstrated abnormality of the visualized brain. IMPRESSION: Mild atherosclerotic changes without a demonstrated aneurysm or hemodynamically significant stenosis. Electronically Signed: Carlos Perera MD at 18:34 EDT , Service support , STUDY: CTA NECK WITH CONTRAST REASON FOR EXAM: Male, 58 years old. Confusion RADIATION DOSAGE (If Supplied By Facility): CTDIvol = ( 30.92 ) mGy, DLP = ( 913.00 ) mGycm TECHNIQUE: CT angiography with multi-detector data acquisition was performed from the aortic arch to the skull base following intravenous administration of 100CC IV Isovue 370. MIP images were reconstructed from the axial data set. Post-processing of the angiographic images was performed, with multiplanar reformation and 3D reconstruction. Individualized dose optimization techniques were used for this CT. COMPARISON: None. FINDINGS: AORTIC ARCH: Normal visualized aortic arch. Normal origins of the brachiocephalic, left common carotid, and left subclavian arteries. RIGHT CAROTID ARTERIES: Normal right common carotid artery (CCA). Mild soft and calcific plaquing of the right common carotid bulb. Minor calcific plaquing of the origin of the right internal carotid (ICA) artery without a hemodynamically significant stenosis. Normal visualized cervical portion of the right internal carotid artery. Normal origin of the right external carotid artery (ECA). LEFT CAROTID ARTERIES: Normal left common carotid artery (CCA). Mild soft and calcific plaquing of the left common carotid bulb. Minor calcific plaquing of the origin of the left internal carotid (ICA) artery without a hemodynamically significant stenosis. Normal visualized cervical portion of the left internal carotid artery. Normal origin of the left external carotid artery (ECA). VERTEBRAL ARTERIES: Normal bilateral vertebral arteries. CT/CTA Head W/WO Contrast IMPRESSION: Mild atherosclerotic disease without evidence for hemodynamically significant stenosis utilizing NASCET criteria Electronically Signed: Carlos Perera MD at 18:37 EDT , Service support ,
--- NOTE | 2018-10-13 16:54 | CT_ITS ---
STUDY: CTA OF THE BRAIN REASON FOR EXAM: Male, 58 years old. Confusion RADIATION DOSAGE (If Supplied By Facility): CTDIvol = ( 30.92 ) mGy, DLP = ( 913.00 ) mGycm TECHNIQUE: CT angiography was performed with a multi-detector CT scanner. Data acquisition was obtained from the skull base through the vertex following intravenous administration of 100CC IV Isovue 370. MIP images were reconstructed from the axial data set. Post-processing of the angiographic images was performed, with multiplanar reformation and 3D reconstruction. Individualized dose optimization techniques were used for this CT. COMPARISON: CT of the brain on October 13, 2018 FINDINGS: Normal bilateral petrous carotid arteries. Minor calcific plaquing of the right cavernous carotid artery with a normal supraclinoid bifurcation. Minor calcific plaquing of the left cavernous carotid artery with a normal supraclinoid bifurcation. Normal right A1 segments of the anterior cerebral artery. Normal left A1 segments of the anterior cerebral artery. Normal intact anterior communicating artery (ACOM). Normal bilateral A2 segments of the anterior cerebral arteries. Normal right M1 and M2 segments of the middle cerebral arteries, with a normal M1 bifurcation. Normal left M1 and M2 segments of the middle cerebral arteries, with a normal M1 bifurcation. Posterior communicating arteries are not visualized consistent with normal variant Normal bilateral vertebral arteries. Normal basilar artery with a normal basilar bifurcation. The visualized bilateral superior cerebellar (SCA) arteries are normal. Normal bilateral P1, P2 and visualized P3 segments of the posterior cerebral arteries. There is no demonstrated aneurysm of the [place]. There is no demonstrated abnormality of the visualized brain. IMPRESSION: Mild atherosclerotic changes without a demonstrated aneurysm or hemodynamically significant stenosis. Electronically Signed: Carlos Perera MD at 18:34 EDT , Service support , STUDY: CTA NECK WITH CONTRAST REASON FOR EXAM: Male, 58 years old. Confusion RADIATION DOSAGE (If Supplied By Facility): CTDIvol = ( 30.92 ) mGy, DLP = ( 913.00 ) mGycm TECHNIQUE: CT angiography with multi-detector data acquisition was performed from the aortic arch to the skull base following intravenous administration of 100CC IV Isovue 370. MIP images were reconstructed from the axial data set. Post-processing of the angiographic images was performed, with multiplanar reformation and 3D reconstruction. Individualized dose optimization techniques were used for this CT. COMPARISON: None. FINDINGS: AORTIC ARCH: Normal visualized aortic arch. Normal origins of the brachiocephalic, left common carotid, and left subclavian arteries. RIGHT CAROTID ARTERIES: Normal right common carotid artery (CCA). Mild soft and calcific plaquing of the right common carotid bulb. Minor calcific plaquing of the origin of the right internal carotid (ICA) artery without a hemodynamically significant stenosis. Normal visualized cervical portion of the right internal carotid artery. Normal origin of the right external carotid artery (ECA). LEFT CAROTID ARTERIES: Normal left common carotid artery (CCA). Mild soft and calcific plaquing of the left common carotid bulb. Minor calcific plaquing of the origin of the left internal carotid (ICA) artery without a hemodynamically significant stenosis. Normal visualized cervical portion of the left internal carotid artery. Normal origin of the left external carotid artery (ECA). VERTEBRAL ARTERIES: Normal bilateral vertebral arteries. CT/CTA Neck W/WO Contrast IMPRESSION: Mild atherosclerotic disease without evidence for hemodynamically significant stenosis utilizing NASCET criteria Electronically Signed: Carlos Perera MD at 18:37 EDT , Service support ,
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
--- NOTE | 2018-10-13 19:40 | NURSING ---
took pt's wallet home.
[2018-10-13] MEDS: Heparin Injection (Vial) 5,000 UNIT/ML VIAL 5000 UNIT SC (21:51)
[2018-10-14] VITALS (20 sets, daily range): BP systolic 104–145; BP diastolic 57–88; PULSE 50–70; RESP 12–24; TEMP 36.2–37.1; O2SAT 95–99
[2018-10-14] MEDS: 0.9% Normal Saline 1,000 ML 150 ML IV (04:32)
[2018-10-14] MEDS: Heparin Injection (Vial) 5,000 UNIT/ML VIAL 5000 UNIT SC ×2 (05:49→15:57)
[2018-10-14 05:50] LABS: Anion Gap 11 (5-15); BUN 15 mg/dL (7-18); BUN/Creat Ratio 10.3 RATIO (10-20); Calcium,Total 8.6 mg/dL (8.5-10.1); Chloride 104 mmol/L (98-107); Creatinine, Serum 1.46 mg/dL (0.70-1.30); EST Glomerular Filtration Rate 52 mL/min (>60); Est Glom Filt Rate - Afr Amer 63 mL/min (>60); Estimated Creatinine Clearance 55.56 ml/min; Glucose 117 mg/dL (74-106); Potassium 4.6 mmol/L (3.5-5.1); Sodium Level 140 mmol/L (136-145)
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
[2018-10-14 08:00] LABS: AST(SGOT) 51 U/L (15-37); Alanine Aminotransfer ALT/SGPT 70 U/L (16-61); Albumin, Serum 3.3 g/dL (3.2-5.0); Alkaline Phosphatase 69 U/L (45-117); Bilirubin, Direct 0.19 mg/dL (0.00-0.30); Globulin 3.5 g/dL (2.2-4.2); Magnesium 1.8 mg/dL (1.6-2.6); Protein, Total 6.8 g/dL (6.4-8.2)
--- NOTE | 2018-10-14 08:08 | EKG12_ITS ---
Test Reason : Blood Pressure : / mmHG Vent. Rate : 051 BPM Atrial Rate : 051 BPM P-R Int : 204 ms QRS Dur : 096 ms QT Int : 720 ms P-R-T Axes : 015 -12 199 degrees QTc Int : [address] & Marked T wave abnormality, consider anterolateral ischemia Prolonged QT Abnormal ECG When compared with ECG of 27-SEP-2018 05:27, Sinus rhythm has replaced Atrial fibrillation Questionable change in QRS axis Inverted T waves have replaced nonspecific T wave abnormality in Inferior leads T wave inversion more evident in Anterolateral leads QT has lengthened Confirmed by MARCO MCKINNON, LUNA ([id number]), editor index DANYA GODFREY ([id number]) on 10/17/2018 8:17:53 AM Referred By: Aaron Quintanilla Confirmed By:LUNA LARA MD
--- NOTE | 2018-10-14 09:17 | PCM.PN.CARD ---
Subjectve: Patient doing much better this morning, completely lucid, moves all 4 extremities, neurologically intact. Telemetry showed normal sinus rhythm/sinus bradycardia with PVCs, ventricular bigeminy, and occasional ventricular couplets. EKG this morning demonstrated prolonged QT interval and amiodarone IV was discontinued. IV fluids were also discontinued after 150 cc/h overnight. Right groin is clean/dry/intact, no evidence of thrills, bruits or hematoma. 6 [place] sheath is in place. 2+ DP and PT pulses bilaterally. It is been less than 24 hours since Xarelto was held. Objective: Vital Signs Temp Pulse Resp BP Pulse Ox 97.8 F 54 L 15 145/75 H 97 10/14/18 04:00 10/14/18 08:00 10/14/18 08:00 10/14/18 08:00 10/14/18 08:00 Oxygen Flow Rate (L/min) 2 Oxygen Delivery Method Room Air Weight: 218 lb 0.595 oz Body Mass Index (BMI) 32.3 Intake and Output for Last 24 Hours 10/12/18 10/13/18 10/14/18 23:59 23:59 23:59 Intake Total 351 / 351 1937 / 1937 Output Total 1400 / 1400 1200 / 1200 Balance -1049 / -1049 737 / 737 General: Awake, Alert, Oriented x 3 HEENT: PERRL, EOMI, Sclera Non Icteric Neck: Supple, Good ROM, No Lymph Node Enlargement Lungs: Clear to auscultation Cardiovascular: Regular Rhythm, Normal S1, Normal S2, No Murmurs, No Rubs, No Gallops Vascular: No Carotid Bruits, Normal Femoral Pulses, Normal Radial Pulses, Normal Dorsalis Pedal Pulse, Normal Posterior Tibial Pulses Abdomen: Bowel Sounds Present, Soft, Non Tender, No HSM, No Organomegaly Extremities: No Cyanosis, No Clubbing, No edema Neurological: No Focal Motor or Sensory Deficit 10/13/18 14:53: WBC 8.0, RBC 5.99, Hgb 17.5 H, Hct 52.7, MCV 88.0, MCH 29.2, MCHC 33.2, RDW 13.7, RDW Differential 44.3 H, Plt Count 186, MPV 11.0, Immature Gran % (Auto) 0.900, Neut % (Auto) 47.6, Lymph % (Auto) 38.3, [place] % (Auto) 7.2, Eos % (Auto) 5.4 H, Baso % (Auto) 0.6, Absolute Neuts (auto) 3.8, Total Counted Not Reportable 10/13/18 14:53: PT 17.7 H, INR 1.5, APTT 69.6 H 10/13/18 14:53: Sodium 137, Potassium 4.2, Chloride 103, Carbon Dioxide 24.0, Anion Gap 10, BUN 15, Creatinine 1.56 H, Est GFR (MDRD) Af Amer 59 L, Est GFR (MDRD) Non-Af 48 L, BUN/Creatinine Ratio 9.6 L, Glucose 114 H, Calcium 9.2, Troponin I < 0.015 10/14/18 04:25: Sodium Cancelled, Potassium Cancelled, Chloride Cancelled, Carbon Dioxide Cancelled, Anion Gap Cancelled, BUN Cancelled, Creatinine Cancelled, Est GFR (MDRD) Af Amer Cancelled, Est GFR (MDRD) Non-Af Cancelled, BUN/Creatinine Ratio Cancelled, Glucose Cancelled, Calcium Cancelled 10/14/18 05:23: Sodium 140, Potassium 4.6, Chloride 104, Carbon Dioxide 25.0, Anion Gap 11, BUN 15, Creatinine 1.46 H, Est GFR (MDRD) Af Amer 63, Est GFR (MDRD) Non-Af 52 L, BUN/Creatinine Ratio 10.3, Glucose 117 H, Calcium 8.6 10/14/18 05:23: Magnesium 1.8, Total Bilirubin 0.60, Direct Bilirubin 0.19 Rhythm: EKG: ECHO: Stress Test: Cardiac Cath: PCI: CT Surgery: Holter monitor: EPS: PPM: CXR: Chest CT Scan: Medical Necessity - Tobacco Use Smoking Status: Former smoker Tobacco Use: Non-smoker Assessment/Plan 1. Cardiomyopathy: The patient appears to have had sudden cardiac , most likely a result of a ventricular arrhythmia despite amiodarone and beta-leah therapy. Thankfully, the patient was successfully resuscitated in the field, and repeat emergent catheterization demonstrated widely patent RCA stent with minimal plaque protrusion through the struts of the stent which was similar to his final result 2 weeks ago. Repeat echocardiogram this morning has been completed and results are pending. No overt evidence of LV apical thrombus was noted. CTA of the head and neck demonstrated no evidence of MCA occlusion despite a suggestion of a nonenhanced head CT scan at the conclusion of the catheterization. The initial CAT scan may have been related to residual IV contrast dye remaining in the venous system at the end of the catheterization. Emergent CTA of the chest demonstrated no evidence of pulmonary emboli. Patient has had no further ventricular arrhythmias, but he does have prolonged QT corrected interval after repeat IV amiodarone was used last evening to suppress additional ventricular ectopy. I recommended discontinuation of the IV amiodarone drip and holding amiodarone until his QT corrected has improved. EKG demonstrates QRS that is most likely less than the amount needed for [employer] therapy. At this point I would recommend we begin the process of organizing trans-for of the patient to a tertiary care facility for him to receive a defibrillator prior to discharge given his recent ventricular fibrillation requiring defibrillation shocks. In addition we will discontinue the patient's spironolactone and start him on Lasix 40 mg p.o. daily for elevated LVEDP and LV dysfunction as well as chronic renal insufficiency. In addition we will start him on losartan 25 mg p.o. daily for afterload reduction. In addition we will restart his carvedilol at 6.25 mg p.o. twice daily and titrate up from there. Recommend discontinuation of digoxin which may be contributing to his ventricular arrhythmias. I reviewed the echocardiogram on his last admission from September 2018 which demonstrated a possible spherical apical thrombus, which did not appear to be present on LV angiogram yesterday. The pigtail catheter was not advanced into the apex at that time. No outward signs of LV apical thrombus noted in the periphery at this time. 2. Coronary artery disease: Emergent left heart catheterization for suspected anterior wall myocardial infarction demonstrated nonobstructive coronary disease of his LAD and left circumflex, and widely patent stent of his proximal RCA which was placed on 09/24/2018. At that time there was mild plaque protrusion through the struts of the stent which appears to be about the same on yesterday's examination. No LV apical thrombus was noted on LV gram. Repeat echocardiogram is in process for confirmation. Continue aspirin and Brilinta. 3. Hyperlipidemia: Continue antilipid therapy. 4. Atrial fibrillation: The patient was initially in atrial fibrillation with his admission in September 2018. He was placed on Xarelto therapy, and when he had his cardiac arrest he was defibrillated and cardioverted into normal sinus rhythm. No outward signs of CVA or emboli noted. His Xarelto has been held for less than 24 hours at this point as of this writing, and his right femoral artery sheath remain in place until tomorrow morning. We will also hold his Xarelto until he has had his defibrillator in place to avoid hematoma in the pocket. 5. We will continue ICU until his sheath has been removed tomorrow morning. 6. Discussed with Dr. Adamson. Thank you very much for the opportunity to participate in the cardiac care of your patient. Code Visit Inpatient E&M: [id number] Subs Hosp L2
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
--- NOTE | 2018-10-14 09:35 | CASEMGMT ---
ODILIA MCKENZIE NOTE: Insurance Review for In-network facilities for MMO insurance: [facility] WHITNEY Thelma Paul JORDAN RN CM
--- NOTE | 2018-10-14 09:48 | MRI_ITS ---
STUDY: MRI BRAIN WITHOUT CONTRAST REASON FOR EXAM: Male, 58 years old. Metabolic encephalopathy TECHNIQUE: Standardized multiplanar fat and water weighted pulse sequences were obtained. COMPARISON: None. FINDINGS: Normal size of the ventricles and extra-axial spaces for the patient's age. Minor periventricular white matter disease. Without evidence for acute infarct.. This likely represents small vessel ischemic changes in patient of this age however other etiology not excluded. Normal bilateral basal ganglia. Normal thalami. There is no extra-axial fluid accumulation. Normal flow voids within the major intracranial circulation suggesting patency by spin echo criteria. Partial empty sella deformity. Normal, infundibular stalk, optic chiasm and hypothalamus. Normal tectal plate and pineal gland. Normal midbrain, philip and medulla. Normal cerebellum. Normal basal cisterns. Normal bilateral temporal bones. Normal bilateral internal auditory canals. No demonstrated orbital abnormality, within the constraints of a routine brain study. Mild to moderate diffuse pansinusitis.. Normal calvarium and skull base. Normal visualized soft tissue structures. Normal visualized upper cervical spine. MRI/Brain without Contrast IMPRESSION: Minor nonspecific periventricular white matter changes. No evidence for acute infarct or mass Electronically Signed: Carlos Perera MD at 16:55 EDT , Service support ,
[2018-10-14] MEDS: Magnesium Oxide 400 MG Tablet PO (10:29)
[2018-10-14] MEDS: Losartan Potassium 25 MG Tablet PO (10:29)
[2018-10-14] MEDS: Clopidogrel Bisulfate 75 MG Tablet PO (10:30)
[2018-10-14] MEDS: Furosemide 40 MG Tablet PO (10:30)
[2018-10-14] MEDS: Aspirin 81 MG TAB.CHEW PO (10:31)
[2018-10-14] MEDS: Carvedilol 6.25 MG Tablet PO (10:32)
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
== END 2018-10-14 17:16 | disposition short-term general hospital (02) | DRG 280 ==
LOC: ED 14:57 → ICU 15:15
PROVIDERS: Internal Medicine Cardiovascular Disease; Admitting Provider Family Medicine; Emergency Provider Emergency Medicine; Family Provider Family Medicine; PCP Family Medicine; Referring Provider Family Medicine; Visit Provider Internal Medicine
DX: I22.9 Subsequent ST elevation (STEMI) myocardial infarction of unspecified site (principal); I49.01 Ventricular fibrillation; I46.9 Cardiac arrest, cause unspecified; G93.41 Metabolic encephalopathy; I13.0 Hypertensive heart and chronic kidney disease with heart failure and stage 1 through stage 4 chronic kidney disease, or unspecified chronic kidney disease; I50.22 Chronic systolic (congestive) heart failure; N17.9 Acute kidney failure, unspecified; I47.2 Ventricular tachycardia; I21.9 Acute myocardial infarction, unspecified; I25.10 Atherosclerotic heart disease of native coronary artery without angina pectoris; I51.3 Intracardiac thrombosis, not elsewhere classified; N18.3 Chronic kidney disease, stage 3 (moderate); Z86.711 Personal history of pulmonary embolism; Z79.82 Long term (current) use of aspirin; Z79.890 Hormone replacement therapy; Z79.02 Long term (current) use of antithrombotics/antiplatelets; Z87.891 Personal history of nicotine dependence; I25.5 Ischemic cardiomyopathy; E78.5 Hyperlipidemia, unspecified; I48.91 Unspecified atrial fibrillation; E03.9 Hypothyroidism, unspecified; Z95.5 Presence of coronary angioplasty implant and graft
CPT/HCPCS: 70450; 70496; 70498; 70551; 71045; 71275; 80048; 80076; 83735; 84484; 85025; 85347; 85610; 85730; 93005; 93308; 93458; 97802; 99283; J7030; Q9957; Q9967; A4216; C1769; C1887; C8924; J1940

== ENCOUNTER → 2019-01-26 | Outpatient (CLI) | payer OTHER, SELFPAY ==
[2018-09-24 14:03] VITALS: BMI 29.0
[2018-11-24 10:56] VITALS: BMI 28.8
--- NOTE | 2019-01-26 07:46 | ECHOCS_ITS ---
Reason For Study: CHF Procedure This was a 2D Doppler, Color Flow transthoracic echocardiogram. The study was technically difficult. Contrast injection was performed. Exam performed in department. Left Ventricle Normal LV size. Mild segmental systolic dysfunction (see wall motion). The estimated ejection fraction is 40 %. Diastolic function is indeterminate. Infero-Basal: Hypokinetic. Mid-Anterior : Hypokinetic. Mid-Inferior: Hypokinetic. Mid-inferoseptal : Hypokinetic. Mid-anteroseptal : Hypokinetic. [place] : Hypokinetic. Right Ventricle Normal RV size. ICD or pacer leads identified within the right ventricle. Normal systolic function. Atria The left atrium is mildly enlarged. Normal right atrium. ICD or pacer leads identified within the right atrium. No doppler evidence for ASD. Mitral Valve There is no mitral annular calcification. Mild focal mitral valve calcification of the anterior leaflet. Trivial mitral valve insufficiency. Tricuspid Valve Normal tricuspid valve. Mild tricuspid valve insufficiency. Right ventricular systolic pressure estimated to be 25 mmHg. Aortic Valve Trisinus/trileaflet aortic valve. Normal aortic valve. Pulmonic Valve The pulmonic valve is not well visualized. Great Vessels Borderline to mildly enlarged aortic root. Pericardium/Pleural No pericardial effusion. Medication 22 gauge I.V. with prn adaptor inserted into left arm. Diluted definity 3.0ml given slow IV push to enhance endocardial definition. MMode/2D Measurements & Calculations LVIDd: 5.2 cm IVSd: 1.0 cm Ao root diam: 3.9 cm LVIDs: 4.3 cm LVPWd: 1.0 cm RVDd: 4.6 cm FS: 17.2 % LAV(MOD-bp): 79.0 ml EDV(MOD-sp4): 190.7 ml EDV(MOD-sp2): 152.5 ml LAV(MOD-bp) Indexed: 34.4 ml/m2 ESV(MOD-sp4): 103.6 ml EF(MOD-sp2): 26.4 % LAV(MOD-sp2): 72.6 ml EF(MOD-sp4): 45.7 % LAV(MOD-sp4): 72.7 ml SV(MOD-sp4): 87.1 ml SV(MOD-sp2): 40.3 ml LA A4 area: 24.1 cm2 LA dimension(2D): 4.3 cm RA A4 area: 17.4 cm2 Time Measurements MV dec time: 0.18 sec Doppler Measurements & Calculations MV E max siva: 48.9 cm/sec Lat Peak E' Siva: 7.2 cm/sec Med Peak E' Siva: 4.6 cm/sec MV A max siva: 65.6 cm/sec E/E' lat: 6.8 E/E' med: 10.7 MV E/A: 0.75 Ao V2 max: 123.7 cm/sec LV V1 max: 86.1 cm/sec PA V2 max: 81.7 cm/sec Ao max P.1 mmHg LV V1 max P.0 mmHg PI end-d siva: 129.2 cm/sec TR max siva: 231.9 cm/sec TR max P.7 mmHg Interpretation Summary The study was technically difficult. Contrast injection was performed. Mild segmental systolic dysfunction (see wall motion). The estimated ejection fraction is 40 %. The left atrium is mildly enlarged. Mild focal mitral valve calcification of the anterior leaflet. Trivial mitral valve insufficiency. Mild tricuspid valve insufficiency. Borderline to mildly enlarged aortic root. Right ventricular systolic pressure estimated to be 25 mmHg. Diastolic function is indeterminate. ICD or pacer leads identified within the right atrium ICD or pacer leads identified within the right ventricle. Ordering Physician: Sohail Whaley/Alex Dukes Referring Physician: JEROME HIRSCH Performed By: Whitney Cervantes, YULIET, RVT
== END | disposition home or self-care (01) ==
LOC: CVS 07:45
PROVIDERS: Family Provider Family Medicine; PCP Family Medicine; Referring Provider Nurse Practitioner Family; Visit Provider Nurse Practitioner Family
DX: I25.10 Atherosclerotic heart disease of native coronary artery without angina pectoris (principal); I25.5 Ischemic cardiomyopathy; I51.3 Intracardiac thrombosis, not elsewhere classified; I50.9 Heart failure, unspecified
CPT/HCPCS: 93306; Q9957; A4216; C8929

== ENCOUNTER → 2021-05-09 07:45 | Outpatient (CLI) | payer OTHER, SELFPAY ==
[2018-09-24 14:03] VITALS: BMI 29.0
--- NOTE | 2021-05-09 07:49 | ECHOCS_ITS ---
Reason For Study: CARDIOMYOPATHY Procedure This was a 2D Doppler, Color Flow transthoracic echocardiogram. The study was technically difficult. Contrast injection was performed. Exam performed in department. Left Ventricle Normal LV size. Mild segmental systolic dysfunction (see wall motion). The estimated ejection fraction is 45 %. No evidence for diastolic dysfunction. Mid-Lateral : Hypokinetic. Mid-Posterior: Hypokinetic. Right Ventricle Normal RV size. ICD or pacer leads identified within the right ventricle. Normal systolic function. Atria The left atrium is mildly enlarged. Normal right atrium. ICD or pacer leads identified within the right atrium. No doppler evidence for ASD. Mitral Valve Normal mitral valve. Mild focal mitral valve calcification of the anterior leaflet. Trivial mitral valve insufficiency. Tricuspid Valve Normal tricuspid valve. Trivial tricuspid valve insufficiency. Right ventricular systolic pressure estimated to be 24 mmHg. Aortic Valve Trisinus/trileaflet aortic valve. Normal aortic valve. Pulmonic Valve The pulmonic valve is not well visualized. Great Vessels Borderline enlarged aortic root. Pericardium/Pleural No pericardial effusion. Epicardial fat. Medication 22 gauge I.V. with prn adaptor inserted into right arm. Diluted definity 4.0ml given slow IV push to enhance endocardial definition. MMode/2D Measurements & Calculations LVIDd: 4.6 cm IVSd: 1.2 cm Ao root diam: 3.8 cm LVIDs: 3.7 cm LVPWd: 1.0 cm RVDd: 4.4 cm FS: 19.6 % LAV(MOD-bp): 78.3 ml LVAd ap4: 40.0 cm2 LVAd ap2: 34.0 cm2 LAV(MOD-bp) Indexed: 33.3 ml/m2 LVLd ap4: 8.5 cm LVLd ap2: 8.1 cm LAV(MOD-sp2): 71.0 ml EDV(MOD-sp4): 154.9 ml EDV(MOD-sp2): 115.9 ml LAV(MOD-sp4): 75.6 ml EDV(sp4-el): 159.7 ml EDV(sp2-el): 121.1 ml LVAs ap4: 26.7 cm2 LVAs ap2: 21.9 cm2 LVLs ap4: 7.4 cm LVLs ap2: 6.6 cm ESV(MOD-sp4): 79.0 ml ESV(MOD-sp2): 60.1 ml ESV(sp4-el): 81.6 ml ESV(sp2-el): 61.2 ml EF(MOD-sp4): 49.0 % EF(MOD-sp2): 48.1 % EF(sp4-el): 48.9 % SV(MOD-sp4): 76.0 ml SV(MOD-sp2): 55.8 ml SV(sp4-el): 78.1 ml LA A4 area: 25.9 cm2 LA dimension(2D): 5.6 cm RA A4 area: 19.1 cm2 Doppler Measurements & Calculations MV E max sloan: 57.7 cm/sec Ao V2 max: 97.2 cm/sec LV V1 max: 62.1 cm/sec MV A max sloan: 27.8 cm/sec Ao max P.8 mmHg LV V1 max P.5 mmHg MV E/A: 2.1 TR max sloan: 230.5 cm/sec TR max P.2 mmHg ECHO/Echo Complete W/ Contrast Interpretation Summary The study was technically difficult. Contrast injection was performed. Mild segmental systolic dysfunction (see wall motion). The estimated ejection fraction is 45 %. The left atrium is mildly enlarged. Mild focal mitral valve calcification of the anterior leaflet. Trivial mitral valve insufficiency. Trivial tricuspid valve insufficiency. Borderline enlarged aortic root. Epicardial fat. Right ventricular systolic pressure estimated to be 24 mmHg. No evidence for diastolic dysfunction. ICD or pacer leads identified within the right atrium ICD or pacer leads identified within the right ventricle. Ordering Physician: Alex Dukes Referring Physician: JEROME HIRSCH Performed By: Whitney Cervantes, RDCS, RVT
== END ==
PROVIDERS: PCP Family Medicine; Referring Provider Internal Medicine Cardiovascular Disease; Visit Provider Internal Medicine Cardiovascular Disease
DX: I48.0 Paroxysmal atrial fibrillation (principal); I50.22 Chronic systolic (congestive) heart failure; I25.5 Ischemic cardiomyopathy; I11.0 Hypertensive heart disease with heart failure; I49.01 Ventricular fibrillation; I46.9 Cardiac arrest, cause unspecified; I25.10 Atherosclerotic heart disease of native coronary artery without angina pectoris; I51.3 Intracardiac thrombosis, not elsewhere classified; E78.5 Hyperlipidemia, unspecified; Z95.810 Presence of automatic (implantable) cardiac defibrillator; Z95.5 Presence of coronary angioplasty implant and graft
CPT/HCPCS: 93306; Q9957; A4216; C8929

== ENCOUNTER 2022-04-01 11:50 | Emergency (ER) | payer OTHER, SELFPAY ==
[2018-09-24 14:03] VITALS: BMI 29.0
[2022-04-01] VITALS (15 sets, daily range): BP systolic 43–91; BP diastolic 20–72; PULSE 60–189; RESP 14–51; TEMP 36.1; O2SAT 86–100; BMI 35.9
--- NOTE | 2022-04-01 12:00 | EKG12_ITS ---
Test Reason : ARREST Blood Pressure : / mmHG Vent. Rate : 197 BPM Atrial Rate : 202 BPM P-R Int : 000 ms QRS Dur : 084 ms QT Int : 250 ms P-R-T Axes : 000 048 078 degrees QTc Int : 452 ms Atrial fibrillation Nonspecific ST and T wave abnormality Abnormal ECG Confirmed by MARCO MCKINNON, LUNA ([id number]), city editor AMAYA NAJERA ([id number]) on 04/03/2022 8:13:19 AM Referred By: CASEY Confirmed By:LUNA LARA MD
--- NOTE | 2022-04-01 12:06 | RAD_ITS ---
STUDY: X-RAY CHEST REASON FOR EXAM: Male, 61 years old. Intubation TECHNIQUE: Single frontal view of the chest. COMPARISON: 10/13/2018 FINDINGS: There is an endotracheal tube in place terminating 6.2 cm above the torsten. There is an enteric tube in place terminating within the expected region of the gastric fundus. There are low lung volumes. There is no new focal consolidation. There is cardiomegaly. There is a cardiac pacer device in place. Normal mediastinum and sina. Normal visualized pulmonary arteries. Normal visualized aortic arch and descending thoracic aorta. Normal visualized thoracic spine. Normal visualized ribs, clavicles, and shoulders. There is no demonstrated abnormality of the visualized soft tissue structures of the upper abdomen. RAD/Chest 1 View (Portable) IMPRESSION: Endotracheal tube terminating 6.2 cm above the torsten, recommend advancement by 2 cm. No acute cardiopulmonary process. Electronically Signed: Janelle Small MD at 12:30 EST ,
--- NOTE | 2022-04-01 12:06 | EKG12_ITS ---
Test Reason : ARREST Blood Pressure : / mmHG Vent. Rate : 121 BPM Atrial Rate : 121 BPM P-R Int : 174 ms QRS Dur : 084 ms QT Int : 292 ms P-R-T Axes : 009 049 046 degrees QTc Int : 414 ms Sinus tachycardia with Fusion complexes Otherwise normal ECG Confirmed by MARCO MCKINNON, LUNA ([id number]), web content editor AMAYA NAJERA ([id number]) on 04/03/2022 8:11:19 AM Referred By: CASEY Confirmed By:LUNA LARA MD
--- NOTE | 2022-04-01 12:07 | CT_ITS ---
INDICATION: cardiac arrest EXAMINATION: CTA CHEST, ABDOMEN AND PELVIS WITH CONTRAST - TECHNIQUE: A CTA of the chest, abdomen, and pelvis is obtained with sagittal and coronal reconstructed MIP views. Three-dimensional surface rendered sequence of the thoracic and abdominal aorta was obtained. A radiation dose optimization technique was used for this scan. 100 cc of Isovue-300 mL of Isovue-370. Oral contrast: None. COMPARISON: CT dated 10/13/2018 of the chest. FINDINGS: CT CHEST: THORACIC AORTA: There is atheromatous disease, no aneurysmal changes or dissection. ABDOMINAL AORTA: There is a infrarenal abdominal aortic aneurysm measuring up to 9.2 x 8.0 cm. There is high attenuation fluid within the retroperitoneum right of midline adjacent to the abdominal aorta consistent with abdominal aortic aneurysm rupture. There is high attenuation fluid extending into the right lower quadrant. There are peripheral calcifications of the abdominal aorta. LUNGS: There is dependent consolidation within the lower lobes. There is an endotracheal tube in place and in satisfactory position. MEDIASTINUM: The thyroid gland is normal. No mediastinal or hilar adenopathy. HEART: There is cardiomegaly. No pericardial effusion. There are coronary artery calcifications. CT ABDOMEN AND PELVIS: LIVER: No masses identified. GALLBLADDER: Normal gallbladder. SPLEEN: Normal. PANCREAS: No masses or inflammation. ADRENAL GLANDS: Normal. KIDNEYS AND URETERS: The kidneys both enhance appropriately. There are normal size and shape. No hydronephrosis or nephrolithiasis. No renal masses or cysts. STOMACH: Normal. There is an enteric tube in place. SMALL BOWEL: No abnormal distention of the small bowel. MESENTERY: No mesenteric inflammation. No ascites. COLON: There are colonic diverticula. The colon otherwise is normal. There is a large fatty ileocecal valve. APPENDIX: The appendix is visualized and normal. IVC: Normal. PELVIC STRUCTURES: Normal bladder. There is a Garrido catheter within the urinary bladder. SOFT TISSUES ABDOMEN: The anterior abdominal wall is normal. SOFT TISSUE CHEST: The extrathoracic soft tissues are normal. BONES: No fractures or significant degenerative disease. CT/CTA Chst, Abd, Pel W and/or WO IMPRESSION: Abdominal aortic aneurysm rupture. Cardiomegaly. Depending lower lobe consolidation. Atherosclerosis. Colonic diverticulosis. N.B. : The above Results were Read Back by Janelle Small MD to Dr. Josette Salazar MD, and understanding confirmed on 04/01/2022 13:17:05 (ET). Electronically Signed: Janelle Small MD at 13:18 EST ,
--- NOTE | 2022-04-01 12:08 | CT_ITS ---
We are attempting to reach an attending provider to discuss findings. An addendum with communication details will be sent when the communication is complete. EXAM: CT HEAD WITHOUT INTRAVENOUS CONTRAST CLINICAL INDICATION: Cardiac arrest. TECHNIQUE: Multiple axial images were obtained of the head without intravenous contrast. This CT exam was performed using one or more of the following dose reduction techniques: automated exposure control, adjustment of the mA and/or kV according to patient size, and/or use of iterative reconstruction technique. This report was created using [employer] report Good[employer] technology. RADIATION DOSE: CTDIvol = 44.99 mGy, DLP = 1620.28 mGy-cm COMPARISON: MRI brain 10/14/2018. CTA head 10/13/2018. FINDINGS: BRAIN AND EXTRA-AXIAL SPACES: Abnormal loss of harvey and white matter interface in the right cerebral hemisphere suspicious for acute cortical-based ischemic infarct. No intra- or extra-axial hemorrhage. No intracranial mass or mass effect. Posterior fossa structures are unremarkable. Ventricles are appropriate for age. No hydrocephalus. Basal cisterns are patent. BONES/JOINTS: Unremarkable. No discrete lytic or blastic abnormalities. SINUSES: Unremarkable as visualized. Clear. MASTOID AIR CELLS: Unremarkable. Clear. ORBITS: Visualized globes, extraocular muscles, optic nerves and retrobulbar fat appear unremarkable. CT/Brain/Head without Contrast IMPRESSION: Suspicious acute cortical-based ischemic infarct involving the right cerebral hemisphere. Electronically Signed: Alcides Winter MD at 13:30 EST Reading Location ID and State: [address] [place] [address] , Service support ,
--- NOTE | 2022-04-01 12:08 | EX.ED.CRITCA ---
HPI History of Present Illness Chief Complaint: CPR Detail of Chief Complaint: Cardiopulmonary arrest Informant: EMS Narrative Narrative: Patient presents to the ER via EMS in cardiopulmonary arrest. Patient was found by in the basement having respiratory difficulty. She thinks may be his defibrillator was going off per what EMS tells me. He had been complaining of some back pain today. Patient with history of coronary artery disease as well as A. fib. Patient has had pacer defibrillator installed. Has history of CHF. [facility] Medical History Acute ST elevation myocardial infarction (STEMI) (10/13/18) Atherosclerotic heart disease of [place] coronary artery without angina pectoris Cardiac arrest CHF (congestive heart failure) Chronic systolic (congestive) heart failure CVA (cerebral vascular accident) Essential hypertension History of pulmonary embolism History of venous thromboembolism HLD (hyperlipidemia) Hypothyroidism Implantable cardioverter-defibrillator (ICD) in situ (~10/15/18) Ischemic cardiomyopathy Left ventricular thrombus Paroxysmal atrial fibrillation Persistent atrial fibrillation Ventricular fibrillation Home Medications aspirin 81 mg chewable tablet 81 mg PO DAILY Check with primary doctor 09/22/18 [History Last Taken Unknown] levothyroxine 125 mcg tablet 125 mcg PO DAILY 10/20/18 [History Last Taken Unknown] atorvastatin 20 mg tablet 20 mg PO QHS 11/25/20 [History Last Taken Unknown] lisinopril 20 mg tablet 20 mg PO BID #180 tabs 05/17/21 [Rx Last Taken Unknown] amlodipine 5 mg tablet 5 mg PO DAILY Hypertension #30 tabs 06/13/21 [Rx Last Taken Unknown] carvedilol 25 mg tablet 25 mg PO BID #60 tabs 10/25/21 [Rx Last Taken Unknown] rivaroxaban 20 mg tablet 20 mg PO DINNER #30 tabs 10/25/21 [Rx Last Taken Unknown] Allergy/AdvReac Type Severity Reaction Status Date / Time Penicillins Allergy Unknown Verified 04/01/22 12:30 Family History Father Myocardial infarction Surgical History History of left heart catheterization (10/13/18) Stented coronary artery (09/24/18) Social History Smoking Status: Unknown if ever smoked how long ago did patient quit smokin years ago alcohol intake: current alcohol intake frequency: a few times a week Alcohol type: beer substance use type: does not use caffeine: Yes Type: coffee Number of servings: 3 ROS ROS ED Review of Systems ROS Unobtainable: due to mental status EXAM Physical Exam Narrative Exam Narrative: Patient being bagged on arrival by EMS. He is unresponsive. Patient initially without a pulse on arrival to the ER and CPR in progress. On monitor he has paced cardiac activity without pulse. IV line was established and patient was intubated with a 7.5 ET tube easily. Good color change noted. Good breath sounds bilaterally. Patient received epinephrine 1 mg IV followed by second epinephrine 1 mg IV 2 minutes later. Patient also received sodium bicarb 1 amp IV. Patient did have return of spontaneous circulation. On monitor now he appears to be in SVT with a heart rate around 200. Initially we attempted adenosine unsuccessfully 6 mg followed by 12 mg. Patient was then cardioverted with 200 J synchronized cardioversion and patient went into a sinus rhythm. Const Vital Signs: 04/01/22 11:50 04/01/22 11:53 04/01/22 12:20 Temperature 97 F L Temperature Source Temporal Pulse Rate 109 H 98 Pulse Rate [1] 120 H Pulse Rate [4] 189 H Respiratory Rate 51 H 18 Respiratory Effort Respiratory Pattern Blood Pressure 81/42 L Blood Pressure [4] 91/72 Blood Pressure Mean 55 Blood Pressure Source Blood Pressure Position Blood Pressure Location Pulse Ox 99 Oxygen Delivery Method Ambu-Bag Mechanical Ventilator Oxygen Flow Rate (L/min) 15 Fraction of Inspired Oxygen (FIO2) 04/01/22 12:25 04/01/22 12:30 04/01/22 12:33 Temperature Temperature Source Pulse Rate 89 80 Pulse Rate [1] Pulse Rate [4] Respiratory Rate 18 20 H Respiratory Effort Mechanically Ventilated Respiratory Pattern Blood Pressure 71/54 L 82/59 L Blood Pressure [4] Blood Pressure Mean 59 66 Blood Pressure Source Blood Pressure Position Blood Pressure Location Pulse Ox 100 100 Oxygen Delivery Method Mechanical Ventilator Room Air Oxygen Flow Rate (L/min) Fraction of Inspired Oxygen (FIO2) 04/01/22 13:03 04/01/22 13:09 04/01/22 13:11 Temperature Temperature Source Pulse Rate 60 60 Pulse Rate [1] Pulse Rate [4] Respiratory Rate 19 H 16 Respiratory Effort Respiratory Pattern Blood Pressure 73/20 L 43/30 L 47/26 L Blood Pressure [4] Blood Pressure Mean 37 34 33 Blood Pressure Source Monitor Monitor Blood Pressure Position Semi-Fowlers Semi-Fowlers Blood Pressure Location Left Arm Pulse Ox 95 Oxygen Delivery Method Mechanical Ventilator Oxygen Flow Rate (L/min) Fraction of Inspired Oxygen (FIO2) 04/01/22 13:14 04/01/22 13:17 04/01/22 13:20 Temperature Temperature Source Pulse Rate 76 Pulse Rate [1] Pulse Rate [4] Respiratory Rate 17 Respiratory Effort Respiratory Pattern Blood Pressure 47/26 L 50/22 L 57/27 L Blood Pressure [4] Blood Pressure Mean 33 31 37 Blood Pressure Source Monitor Monitor Monitor Blood Pressure Position Semi-Fowlers Semi-Fowlers Semi-Fowlers Blood Pressure Location Pulse Ox 100 Oxygen Delivery Method Mechanical Ventilator Oxygen Flow Rate (L/min) Fraction of Inspired Oxygen (FIO2) 04/01/22 13:26 04/01/22 13:35 04/01/22 11:52 Temperature Temperature Source Pulse Rate 111 H Pulse Rate [1] Pulse Rate [4] Respiratory Rate 26 H Respiratory Effort Respiratory Pattern Tachypnea Blood Pressure 49/34 L 68/22 L Blood Pressure [4] Blood Pressure Mean 39 37 Blood Pressure Source Monitor Monitor Blood Pressure Position Semi-Fowlers Blood Pressure Location Pulse Ox 93 Oxygen Delivery Method Oxygen Flow Rate (L/min) Fraction of Inspired Oxygen (FIO2) 80 Positive well nourished and well developed General Appearance ED: well developed and NAD HEENT Reports TM's clear and moist mucous membranes normocephalic and atraumatic; Negative for trauma or tenderness Tympanic Membrane ED: Yes TM's clear Eyes PERRL and EOMs intact bilaterally General Eye ED: Negative for pale conjunctiva or scleral icterus Neck no lymphadenopathy, supple and no JVD General: Negative for tenderness Chest Wall inspection of chest normal and palpation of chest normal Chest: Negative for tenderness Resp normal respiratory effort and clear to auscultation bilaterally Effort and Inspection: Negative for respiratory distress or pain with movement Auscultation: Negative for rhonchi, wheezes or diminished lung sounds Cardio regular rate, regular rhythm, S1 normal heart sound, S2 normal heart sound and no murmurs Peripheral Pulses: pulses 2+ throughout GI normal to inspection, nondistended, normoactive bowel sounds, soft to palpation, non-tender, non-distended and no masses Back/Spine no CVA tenderness and no thoracic nor lumbar tenderness Extremity normal to inspection General Extremety ED: Negative for edema General Extremity: Negative for edema Neuro oriented x3, CN's II-XII intact bilaterally, no sensory deficits noted and gait normal Sensorium / Orientation: awake, alert, oriented to person, oriented to place and oriented to time Motor Exam: strength 5/5 throughout and strength abnormal Psych mental status grossly normal Skin no rashes or lesions noted and no wounds MDM MDM MDM Narrative Medical decision making narrative: On arrival patient had CPR continued and patient was intubated. Multiple IVs were started. There was return of spontaneous circulation. Patient then went into an SVT rhythm for which we tried adenosine unsuccessfully and then was given a defibrillation that was synchronized at 200 J and he went into a sinus rhythm. Patient had a CT scan of the brain without contrast that showed questionable acute infarct that was cortical right side of the brain. Patient had a CTA of the chest and abdomen that showed a infrarenal AAA measuring up to 9 cm with suspicion of rupture. I discussed this findings with and she agreed to try to do everything for him and therefore we contacted [facility]. They accepted him for transfer and they sent air transfer for him. On arrival of helicopter patient arrested again. made decision at this time that attempts were futile and she did not want to continue with continued resuscitation. Patient went into PEA again. Time of was 1350. Lab Data Attestation: I reviewed the patient's lab results. Labs: Laboratory Results - last 24 hr 04/01/22 04/01/22 04/01/22 12:13 12:13 12:13 WBC 3.9 L RBC 4.16 L Hgb 13.0 Hct 40.7 MCV 97.8 H MCH 31.3 MCHC 31.9 L RDW Std Deviation 49.4 H RDW Coeff of Marty 13.7 Plt Count 73 L MPV 10.3 Immature Gran % (Auto) 1.000 H Neut % (Auto) 40.8 L Lymph % (Auto) 52.7 H [place] % (Auto) 3.1 Eos % (Auto) 2.1 Baso % (Auto) 0.3 Absolute Neuts (auto) 1.6 L Absolute Lymphs (auto) 2.04 Nucleated RBC % 0 Platelet Estimate SLT DEC PT 15.9 H INR 1.3 Sodium 140 Potassium 4.3 Chloride 106 Carbon Dioxide 20.0 L Anion Gap 14 BUN 23 H Creatinine 1.58 H Estim Creat Clear Calc 49.41 Est GFR (MDRD) Af Amer 57 L Est GFR (MDRD) Non-Af 47 L BUN/Creatinine Ratio 14.6 Glucose 169 H Lactic Acid Calcium 9.0 Total Bilirubin 0.50 AST 88 H ALT 84 H Alkaline Phosphatase 80 Troponin I High Sens 11 Total Protein 5.8 L Albumin 2.7 L Globulin 3.1 Albumin/Globulin Ratio 0.9 04/01/22 12:20 WBC RBC Hgb Hct MCV MCH MCHC RDW Std Deviation RDW Coeff of Marty Plt Count MPV Immature Gran % (Auto) Neut % (Auto) Lymph % (Auto) [place] % (Auto) Eos % (Auto) Baso % (Auto) Absolute Neuts (auto) Absolute Lymphs (auto) Nucleated RBC % Platelet Estimate PT INR Sodium Potassium Chloride Carbon Dioxide Anion Gap BUN Creatinine Estim Creat Clear Calc Est GFR (MDRD) Af Amer Est GFR (MDRD) Non-Af BUN/Creatinine Ratio Glucose Lactic Acid 6.7 H* Calcium Total Bilirubin AST ALT Alkaline Phosphatase Troponin I High Sens Total Protein Albumin Globulin Albumin/Globulin Ratio ABG Data ABG results: ABG 04/01/22 12:38 Specimen Type LESTER VBG pH 7.03 L* VBG pO2 10 L* VBG HCO3 17 L VBG Total CO2 19 L VBG O2 Sat (Calc) 5 L VBG Base Excess -14 L POC Mix VBG pCO2 Pt Tmp 62.7 H Respiration Rate 14 O2 Delivery Device Adult Vent POC PEEP 5 Crit Call To/Read Back Yes Blood Gas Notified Whom ungur Blood Gas Notified Time 12:40:16 Radiography Diagnostic Testing: Clinical Impression(s) from Imaging Studies Chest X-Ray 04/01/22 12:06 IMPRESSION: Endotracheal tube terminating 6.2 cm above the torsten, recommend advancement by 2 cm. No acute cardiopulmonary process. Electronically Signed: Janelle Small MD at 12:30 EST , Chest/Abdomen/Pelvis CTA 04/01/22 12:07 IMPRESSION: Abdominal aortic aneurysm rupture. Cardiomegaly. Depending lower lobe consolidation. Atherosclerosis. Colonic diverticulosis. N.B. : The above Results were Read Back by Janelle Small MD to Dr. Josette Salazar MD, and understanding confirmed on 04/01/2022 13:17:05 (ET). Electronically Signed: Janelle Small MD at 13:18 EST , ADDENDUM: 04/01/22 1325 IMPRESSION: Abdominal aortic aneurysm rupture. Cardiomegaly. Depending lower lobe consolidation. Atherosclerosis. Colonic diverticulosis. N.B. : The above Results were Read Back by Janelle Small MD to Dr. Josette Salazar MD, and understanding confirmed on 04/01/2022 13:17:05 (ET). Electronically Signed: Janelle Small MD at 13:18 EST , Brain CT 04/01/22 12:08 IMPRESSION: Suspicious acute cortical-based ischemic infarct involving the right cerebral hemisphere. Electronically Signed: Alcides Winter MD at 13:30 EST , ADDENDUM: 04/01/22 1347 IMPRESSION: Suspicious acute cortical-based ischemic infarct involving the right cerebral hemisphere. N.B. : Josette Salazar MD, confirmed on 04/01/2022 13:40:43 (ET) that the referring physician received the results and does not require a verbal communication. Electronically Signed: Alcides Winter MD at 13:30 EST , 1 view chest x-ray obtained after intubation showed good placement of ET tube with otherwise no acute disease process. Radiologist was in agreement but thought the tube could be advanced to more centimeters. EKG Initial EKG: Comments: Initial EKG obtained showed a narrow complex tachycardia with a rate of 197 bpm that I suspect was SVT with nonspecific ST changes. Repeat EKG after cardioversion showed a sinus rhythm with ventricular rate of 121 bpm with no acute ST segment changes Critical Care Time Critical care time (excluding procedures): 30-74 minutes, Including time spent:, Discussing w/Patient &/or Family/Travel Agency Manager, Discussing w/Consultants, Arranging Admission or Transfer, Performing Direct Patient Care at Bedside and - (60 minutes) Discharge Plan Triage Chief Complaint: CPR ED Provider: Josette Salazar Dx/Rx/DC Orders Clinical Impression: Cardiopulmonary arrest, AAA (abdominal aortic aneurysm) without rupture, History of coronary artery disease, Acute hypotension Prescriptions: No Action atorvastatin 20 mg tablet 20 mg PO QHS aspirin 81 MG tablet,chewable 81 mg PO DAILY levothyroxine 125 mcg tablet 125 mcg PO DAILY lisinopril 20 mg tablet 20 mg PO BID Qty: 180 3RF amlodipine 5 mg tablet 5 mg PO DAILY Qty: 30 11RF carvedilol 25 mg tablet 25 mg PO BID Qty: 60 11RF Rx Instructions: must administer with a meal/food rivaroxaban 20 mg tablet 20 mg PO DINNER Qty: 30 12RF Primary Care Provider: Kareem Mai Referrals: Kareem Mai MD [Primary Care Provider] - Disposition Disposition:
[2022-04-01] MEDS: Midazolam 2 MG/2 ML Syringe IV (12:24)
[2022-04-01] MEDS: 0.9% Normal Saline 1,000 ML 1000 ML IV (12:25)
[2022-04-01 12:31] LABS: Absolute Lymphocyte Count 2.04 X10^3/uL (0.83-4.51); Absolute Neutrophil Count 1.6 X10^3/uL (2.0-7.7); Basophil# 0.01 X10^3/uL; Basophil% 0.3 % (0-1); Eosinophil# 0.08 X10^3/uL; Eosinophils% 2.1 % (0-5); Hematocrit 40.7 % (40-54); Lymphocyte # 2.04 X10^3/ul (0.83-4.51); Lymphocyte % 52.7 % (19-41); Mean Corp Hgb Conc 31.9 g/dL (32-36); Mean Corpuscular Hgb 31.3 pg (27.0-32.0); Mean Corpuscular Volume 97.8 fL (80-94); Mean Platelet Vol. 10.3 fl (6.2-12.0); Monocyte# 0.12 X10^3/uL; Monocyte% 3.1 % (0-10); NRBC Flagged by Analyzer 0 % (0-5); Neutrophil # 1.58 X10^3/uL (2.7-7.7); Neutrophil % 40.8 % (47-70); POSITIVE COUNT YES; Platelet Count 73 K/mm3 (150-450); RBC Distribution Width CV 13.7 % (11.6-14.6); RBC Distribution Width SD 49.4 fl (35.1-43.9); Red Blood Count 4.16 M/mm3 (4.6-6.2); White Blood Count 3.9 K/mm3 (4.4-11.0)
[2022-04-01 12:32] LABS: Differential Indicated SCAN CRITERIA MET
[2022-04-01] MEDS: 0.9% Normal Saline 1,000 ML 999 ML IV (12:37)
[2022-04-01 12:45] LABS: Blood Gas Specimen Type VEN; O2 Delivery Device Adult Vent; PEEP 5; RR 14; VBG BASE EXCESS -14 mmol/L (-1.0-3.5); VBG Bicarbonate 17 mmol/L (22-26); VBG PO2 10 mmHg (25-40); VBG SO2 5 % (50-70); VBG TCO2 19 mmol/L (23-33); VBG pCO2 62.7 mmHg (41-51); VBG pH 7.03 (7.32-7.42)
[2022-04-01 12:45] LABS: ALB/GLOB Ratio 0.9 RATIO (0.9-2.4); AST(SGOT) 88 U/L (15-37); Alanine Aminotransfer ALT/SGPT 84 U/L (16-61); Albumin, Serum 2.7 g/dL (3.2-5.0); Alkaline Phosphatase 80 U/L (45-117); Anion Gap 14 (5-15); BUN 23 mg/dL (7-18); BUN/Creat Ratio 14.6 RATIO (10-20); Chloride 106 mmol/L (98-107); Creatinine, Serum 1.58 mg/dL (0.70-1.30); EST Glomerular Filtration Rate 47 mL/min (>60); Est Glom Filt Rate - Afr Amer 57 mL/min (>60); Estimated Creatinine Clearance 49.41 ml/min; Globulin 3.1 g/dL (2.2-4.2); Glucose 169 mg/dL (74-106); Potassium 4.3 mmol/L (3.5-5.1); Protein, Total 5.8 g/dL (6.4-8.2); Sodium Level 140 mmol/L (136-145); Troponin-I HS 11 pg/mL (3.0-78.0)
[2022-04-01 12:49] LABS: Platelet Estimate SLT DEC (ADEQ)
[2022-04-01] MEDS: DOPamine IV 800 MG/250 ML IV.SOLN. 10.6 MG CONT INF (13:03)
[2022-04-01 13:08] LABS: Lactic Acid 6.7 mmol/L (0.4-1.9)
--- NOTE | 2022-04-01 13:19 | ED.RN ---
Addendum entered by Nereida Mike 04/01/22 14:23: PT WEIGHED TO OBTAIN ACCURATE DOSING WEIGHT, INITIAL WEIGHT ESTIMATED BY STAFF CPR IN PROGRESS Original Note: DOPAMINE TITRATED FASTER THAN PROTOCOL PER MD
[2022-04-01 13:27] LABS: International Normalized Ratio 1.3; Prothrombin Time (Protime)PT. 15.9 SECONDS (11.7-14.9)
--- NOTE | 2022-04-01 14:45 | ED.RN ---
PT BECAME AGITATED AND BEGAN PULLING AT TUBES WITHIN MINUTES OF BEING INTUBATED. UNABLE TO REDIRECT.
[2022-04-01 16:37] LABS: Reflex Lactate? Y
== END 2022-04-01 20:20 ==
PROVIDERS: Emergency Provider Emergency Medicine; PCP Family Medicine; Visit Provider Emergency Medicine
DX: I46.9 Cardiac arrest, cause unspecified (principal); I11.0 Hypertensive heart disease with heart failure; I50.22 Chronic systolic (congestive) heart failure; I25.10 Atherosclerotic heart disease of native coronary artery without angina pectoris; E78.5 Hyperlipidemia, unspecified; I71.40 Abdominal aortic aneurysm, without rupture, unspecified; Z87.891 Personal history of nicotine dependence
CPT/HCPCS: 31500; 31720; 36430; 36591; 70450; 71045; 71275; 74174; 80053; 82803; 83605; 84484; 85025; 85610; 87070; 87205; 87428; 92950; 93005; 94002; 96360; 99284; J7030; J7168; P9016; Q9967; A4216; J0153; J3490